=== PATIENT | male | born 1980 | race African-American/Black ===

== ENCOUNTER 2017-11-13 02:05 | Inpatient (IN) ==
[2017-11-13] MEDS ORDERED: 0.9 % Sodium Chloride 1,000 ML IVC ONE ×2 (02:49→05:08)
--- NOTE | 2017-11-13 02:55 | Emergency Department Note ---
Disposition Clinical Impression: Cellulitis of left upper extremity Extremity pain Qualifiers: Extremity pain location: unspecified extremity Qualified Code(s): M79.609 - Pain in unspecified limb Disposition: Still a Patient Condition: Good Referrals: NONE,PCP [Primary Care Provider] - Forms: ED Satisfaction Letter, Work/School Release Time of Disposition: 05:54 General Adult HPI - General Chief complaint: ED General Medical Stated complaint: Muscle Spasms, L Hand/Arm Infection Time Seen by Provider: 11/13/17 02:48 Source: patient Limitations: no limitations Nursing Notes Reviewed: Yes Vital Signs Reviewed: Yes - History of Present Illness HPI Narrative: 37-year-old male complains of muscle spasms, and pain to his left upper extremity. He describes spasm starting earlier tonight, worse with movement. He also mentions redness and swelling on his hand has been worsening. He mentions pain to his left ankle, and knee pain. He describes a thermal burn to his left thumb caused when he was making food. Approximately 45 days ago. 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 He denies any fever, abdominal pain, chest pain, shortness of breath Pain Scale: 9 - Related Data Previous Rx's Medication Instructions Recorded Permethrin Cream Rinse [Nix] 60 ml TP ONCE #1 liquid 05/17/16 Naproxen [Naprosyn] 500 mg PO BID #30 tablet 09/06/17 Allergies Allergy/AdvReac Type Severity Reaction Status Date / Time No Known Allergies Allergy Verified 08/07/17 20:23 All systems ED: reviewed and negative except as stated. Review of Systems: As Per HPI Constitutional: Denies: fever, chills, weakness Eyes: Denies: eye pain ENT ED: Denies: ear pain Cardiovascular: Reports: other (poor circulation). Denies: chest pain, palpitations Respiratory: Denies: cough, dyspnea Gastrointestinal: Denies: abdominal pain, nausea, vomiting Genitourinary: Denies: dysuria Musculoskeletal: Reports: as per HPI. Denies: back pain, neck pain Integumentary: Denies: rash Neurological: Denies: headache Psychiatric: Denies: anxiety Endocrine: Denies: fatigue Allergic/Immunologic: Denies: facial swelling Past Medical History - Past Medical History Medical history: Reports: hyperlipidemia, hypertension Surgical history: Reports: cholecystectomy, orthopedic, other, other Psychiatric history: Reports: anxiety, depression - Social History Smoking Status: Current every day smoker Smokeless Tobacco Status: No Alcohol use: Reports: none Drug use: Reports: marijuana Physical Exam - General Limitations: no limitations General appearance: alert, in no apparent distress, anxious - Head Head exam: atraumatic, normocephalic - Eye Eye exam: Present: normal appearance, EOMI. Absent: conjunctival injection - ENT ENT exam: normal exam, normal oropharynx - Neck Neck exam: Present: normal inspection, full ROM - Chest Chest inspection: Present: normal inspection, symmetric chest wall rise - Respiratory Respiratory exam: Absent: respiratory distress - Cardiovascular Cardiovascular exam: Present: normal rhythm, tachycardia - Abdominal Exam Abdominal exam: Present: soft, Non-Tender - Expanded Upper Extremity Exam Forearm/Wrist exam: Present: tenderness (left ), swelling (left ), erythema ( left ), other (left lymphangitic streaking) Hand exam: Present: tenderness (left ), swelling (left ), other (black skin breakdown over left thumb). Absent: full ROM, erythema - Expanded Lower Extremity Exam Knee exam: Present: full ROM, tenderness (left), swelling (left), erythema (left ). Absent: effusion, knee extension intact Ankle exam: Present: tenderness (left), swelling (left) - Back Exam Back exam: Present: full ROM. Absent: tenderness, CVA tenderness (R), CVA tenderness (L) - Neurological Exam Neurological exam: Present: alert - Psychiatric Psychiatric exam: Present: normal affect, anxious - Skin Skin exam: Present: warm, dry, intact, normal color Course Course Narrative: 37-year-old male with stated history of rhinitis presents with left hand pain and swelling she describes as been worsening over the past few days. He describes a burning occurred approximately month and a half ago. Also complains of left knee pain and left ankle pain. On exam, tachycardic, erythema and edema with limited range of motion over the left hand. Concerning signs for infectious process. Workup initiated. - Reevaluation(s) Reevaluation #1: Patient disrobed, swelling and warmth of her left knee, left ankle as well. We will add uric acid. No relief with analgesics. additional meds ordered. Time: 03:45 Reevaluation #2: Patient is slight elevation of white count. Sedimentation rate CRP slightly elevated. Lactic acid wnl. Responding to fluids, as his heart rate has improved however he still tachycardic. He has received IV vancomycin. Radiographs of the hand, left knee, left ankle show no acute fractures dislocations. Patient was discussed with Dr. Villa who also had face time with patient, and agreed for a CT of left upper extremity, and decision to place. CT has been ordered. Analgesics have been ordered. Due to shift change, care of this patient will be transferred over to day shift provider. Pt discussed with Rosalia castillo PA-C. Please see their further documentation details. Time: 05:53 Vital Signs Temperature 99.9 F H 11/13/17 02:07 Pulse Rate 121 11/13/17 02:07 Respiratory Rate 20 11/13/17 02:07 Blood Pressure 144/90 11/13/17 02:07 O2 Sat by Pulse Oximetry 96 11/13/17 02:07 Temperature 99.9 F H 11/13/17 02:07 Pulse Rate 95 11/13/17 05:27 Respiratory Rate 16 11/13/17 05:27 Blood Pressure 118/77 11/13/17 05:27 O2 Sat by Pulse Oximetry 99 11/13/17 05:27 Oxygen Delivery Oxygen Delivery Room Air Medical Decision Making - Differential Diagnosis cellulitis, infectious tenosynovitis, abscess - Lab Data Lab results reviewed: Yes I reviewed the patient's lab results. Result diagrams: 11/13/17 03:07 11/13/17 03:07 Lab Results 11/13/17 11/13/17 11/13/17 Range/Units 03:00 03:07 03:07 WBC 12.6 H (4.3-11.1) K/mcL RBC 4.65 (4.19-5.50) M/mcL Hgb 12.6 L (12.9-16.9) g/dL Hct 38.3 (37.5-50.1) % MCV 82.4 L (83.0-100.0) fL MCH 27.1 L (28.0-33.3) pg MCHC 32.9 (31.6-35.5) g/dL RDW 14.2 (11.5-14.5) % Plt Count 114 L (140-400) K/mcL MPV 10.9 (9.4-12.4) fL Immature Gran % 0.5 (0-4) % Seg Neutrophils % 87.2 % Lymphocytes % 6.7 % Monocytes % 5.2 % Eosinophils % 0.2 % Basophils % 0.2 % Neutrophils # 11.0 H (1.6-8.9) K/mcL Lymphocytes # 0.8 (0.6-4.6) K/mcL Monocytes # 0.7 (0.0-1.3) K/mcL Eosinophils # 0.0 (0.0-0.6) K/mcL Basophils # 0.0 (0.0-0.2) K/mcL ESR (0-10) mm/hr Sodium 137 (136-145) mEq/L Potassium 3.8 (3.5-5.1) mEq/L Chloride 105 (98-107) mEq/L Carbon Dioxide 29 (23-29) mEq/L BUN 11 (6-20) mg/dL Creatinine 0.84 (0.70-1.30) mg/dL Est GFR ( Amer) > 60 (> 60) Est GFR (Non-Af Amer) > 60 (> 60) BUN/Creatinine Ratio 13 (6-26) Glucose 123 H (70-105) mg/dL Calculated Osmolality 285 (280-300) Lactic Acid (0.5-2.2) mmol/L Uric Acid 4.2 (2.3-7.6) mg/dL Calcium 9.3 (8.6-10.3) mg/dL Magnesium Cancelled Creatine Kinase (30-223) Units/L C-Reactive Protein (Less than 10) mg/L TSH (0.340-5.600) mcIU/mL Urine Color Yellow (Yellow) Urine Clarity Clear (Clear) Urine pH 6.5 (5.0-8.0) pH Units Ur Specific [place] > 1.030 H (1.010-1.025) Urine Protein 100 H (Neg-Trace) mg/dL Urine Glucose (UA) Normal (Normal) mg/dL Urine Ketones Trace H (Negative) mg/dL Urine Blood Negative (Negative) Urine Nitrite Negative (Negative) Urine Bilirubin Small H (Negative) Urine Urobilinogen Normal (Normal) mg/dL Ur Leukocyte Esterase Negative (Negative) Urine Microscopic RBC 5-15 H (0-3) per hpf Urine Microscopic WBC 5-15 H (0-3) per hpf Ur Squamous Epith Cells Many H (None-Few) per lpf Urine Bacteria None Seen (None-Few) per hpf Hyaline Casts None Seen (None-Few) per lpf Ur Culture Indicated? NO (NO) 11/13/17 11/13/17 11/13/17 Range/Units 03:07 03:07 03:07 WBC (4.3-11.1) K/mcL RBC (4.19-5.50) M/mcL Hgb (12.9-16.9) g/dL Hct (37.5-50.1) % MCV (83.0-100.0) fL MCH (28.0-33.3) pg MCHC (31.6-35.5) g/dL RDW (11.5-14.5) % Plt Count (140-400) K/mcL MPV (9.4-12.4) fL Immature Gran % (0-4) % Seg Neutrophils % % Lymphocytes % % Monocytes % % Eosinophils % % Basophils % % Neutrophils # (1.6-8.9) K/mcL Lymphocytes # (0.6-4.6) K/mcL Monocytes # (0.0-1.3) K/mcL Eosinophils # (0.0-0.6) K/mcL Basophils # (0.0-0.2) K/mcL ESR 119 H (0-10) mm/hr Sodium (136-145) mEq/L Potassium (3.5-5.1) mEq/L Chloride (98-107) mEq/L Carbon Dioxide (23-29) mEq/L BUN (6-20) mg/dL Creatinine (0.70-1.30) mg/dL Est GFR ( Amer) (> 60) Est GFR (Non-Af Amer) (> 60) BUN/Creatinine Ratio (6-26) Glucose (70-105) mg/dL Calculated Osmolality (280-300) Lactic Acid 0.9 (0.5-2.2) mmol/L Uric Acid (2.3-7.6) mg/dL Calcium (8.6-10.3) mg/dL Magnesium Creatine Kinase (30-223) Units/L C-Reactive Protein (Less than 10) mg/L TSH 1.024 (0.340-5.600) mcIU/mL Urine Color (Yellow) Urine Clarity (Clear) Urine pH (5.0-8.0) pH Units Ur Specific [place] (1.010-1.025) Urine Protein (Neg-Trace) mg/dL Urine Glucose (UA) (Normal) mg/dL Urine Ketones (Negative) mg/dL Urine Blood (Negative) Urine Nitrite (Negative) Urine Bilirubin (Negative) Urine Urobilinogen (Normal) mg/dL Ur Leukocyte Esterase (Negative) Urine Microscopic RBC (0-3) per hpf Urine Microscopic WBC (0-3) per hpf Ur Squamous Epith Cells (None-Few) per lpf Urine Bacteria (None-Few) per hpf Hyaline Casts (None-Few) per lpf Ur Culture Indicated? (NO) 11/13/17 Range/Units 03:07 WBC (4.3-11.1) K/mcL RBC (4.19-5.50) M/mcL Hgb (12.9-16.9) g/dL Hct (37.5-50.1) % MCV (83.0-100.0) fL MCH (28.0-33.3) pg MCHC (31.6-35.5) g/dL RDW (11.5-14.5) % Plt Count (140-400) K/mcL MPV (9.4-12.4) fL Immature Gran % (0-4) % Seg Neutrophils % % Lymphocytes % % Monocytes % % Eosinophils % % Basophils % % Neutrophils # (1.6-8.9) K/mcL Lymphocytes # (0.6-4.6) K/mcL Monocytes # (0.0-1.3) K/mcL Eosinophils # (0.0-0.6) K/mcL Basophils # (0.0-0.2) K/mcL ESR (0-10) mm/hr Sodium (136-145) mEq/L Potassium (3.5-5.1) mEq/L Chloride (98-107) mEq/L Carbon Dioxide (23-29) mEq/L BUN (6-20) mg/dL Creatinine (0.70-1.30) mg/dL Est GFR ( Amer) (> 60) Est GFR (Non-Af Amer) (> 60) BUN/Creatinine Ratio (6-26) Glucose (70-105) mg/dL Calculated Osmolality (280-300) Lactic Acid (0.5-2.2) mmol/L Uric Acid (2.3-7.6) mg/dL Calcium (8.6-10.3) mg/dL Magnesium Creatine Kinase 297 H (30-223) Units/L C-Reactive Protein 260 H (Less than 10) mg/L TSH (0.340-5.600) mcIU/mL Urine Color (Yellow) Urine Clarity (Clear) Urine pH (5.0-8.0) pH Units Ur Specific [place] (1.010-1.025) Urine Protein (Neg-Trace) mg/dL Urine Glucose (UA) (Normal) mg/dL Urine Ketones (Negative) mg/dL Urine Blood (Negative) Urine Nitrite (Negative) Urine Bilirubin (Negative) Urine Urobilinogen (Normal) mg/dL Ur Leukocyte Esterase (Negative) Urine Microscopic RBC (0-3) per hpf Urine Microscopic WBC (0-3) per hpf Ur Squamous Epith Cells (None-Few) per lpf Urine Bacteria (None-Few) per hpf Hyaline Casts (None-Few) per lpf Ur Culture Indicated? (NO) - Radiology Data Radiology results reviewed: Yes I reviewed the patient's radiology results. Attestation Statement - Attestation Attestation: I, Naresh Villa MD, personally evaluated this patient and discussed their management with the midlevel provicer, [employer]. I reviewed the midlevel provider 's note and agree with the documented findings, medical decision making, and plan of care. 37-year-old male presents to the emergency department with a complaint of increased pain and swelling and redness of the left hand since yesterday. He thinks he has had some fever also. He also complains of muscle spasms in his feet and legs. Patient states that he burned his thumb and index finger about a month and half ago. On examination patient is a well-developed well-nourished male in no acute distress. He is alert and oriented 3. There is no diaphoresis. Breath sounds are clear and equal bilaterally. Heart regular. Abdomen soft with normal bowel sounds. There is marked diffuse swelling of the left hand with erythema and warmth to touch. X-rays of the left hand shows some bony abnormalities of the distal phalanges of the thumb and index finger. Also some soft tissue defects in these areas. They did not mention the edema of the hand. X-ray of ankle shows a probable subcutaneous hematoma. X-ray of the knee shows no acute fracture or abnormality. Labs reviewed. A CT of the left hand with contrast was ordered. Plan is to admit the patient for IV antibiotics after return of the CT.
[2017-11-13] MEDS ORDERED: *HR* LORazepam 2 MG/ML VIAL IVP ONE (02:58)
[2017-11-13] MEDS ORDERED: Ketorolac 15 MG/ML VIAL IVP ONE (02:58)
[2017-11-13 03:18] LABS: Basophils % 0.2 %; Eosinophils % 0.2 %; Hematocrit 38.3 % (37.5-50.1); Hemoglobin 12.6 g/dL (12.9-16.9); Immature Granulocytes % 0.5 % (0-4); Lymphocytes # 0.8 K/mcL (0.6-4.6); Lymphocytes % 6.7 %; Mean Corpuscular HGB Conc 32.9 g/dL (31.6-35.5); Mean Corpuscular Hemoglobin 27.1 pg (28.0-33.3); Mean Corpuscular Volume 82.4 fL (83.0-100.0); Mean Platelet Volume 10.9 fL (9.4-12.4); Monocytes # 0.7 K/mcL (0.0-1.3); Monocytes % 5.2 %; Platelet Count 114 K/mcL (140-400); Red Blood Count 4.65 M/mcL (4.19-5.50); Red Cell Distribution Width 14.2 % (11.5-14.5); Segmented Neutrophils % 87.2 %
[2017-11-13 03:31] LABS: Bilirubin,Urine Small (Negative); Blood,Urine Negative (Negative); Clarity,Urine Clear (Clear); Color,Urine Yellow (Yellow); Glucose,Urine (UA) Normal (Normal); Ketones,Urine Trace mg/dL (Negative); Leukocyte Esterase,Urine Negative (Negative); Nitrite,Urine Negative (Negative); PH,Urine 6.5 pH Units (5.0-8.0); Protein,Urine 100 mg/dL (Neg-Trace); Specific Gravity,Urine > 1.030 (1.010-1.025); Urobilinogen,Urine Normal (Normal)
[2017-11-13 03:32] LABS: BUN/Creatinine Ratio 13 (6-26); Blood Urea Nitrogen 11 mg/dL (6-20); Calcium 9.3 mg/dL (8.6-10.3); Carbon Dioxide 29 mEq/L (23-29); Chloride 105 mEq/L (98-107); Glucose 123 mg/dL (70-105); Osmolality,Calculated 285 (280-300); Potassium 3.8 mEq/L (3.5-5.1); Sodium 137 mEq/L (136-145); eGFR For African Americans > 60 (> 60); eGFR For Non-African Americans > 60 (> 60)
[2017-11-13 03:34] LABS: Bacteria,Urine None Seen per hpf (None-Few); Hyaline Casts,Urine None Seen per lpf (None-Few); Squamous Epithelial Cell,Urine Many per lpf (None-Few)
[2017-11-13] MEDS ORDERED: *HR* HYDROmorphone (PF) 1 MG/ML SYRINGE IVP ONE ×2 (03:41→05:26)
[2017-11-13] MEDS ORDERED: Vancomycin 1,000 MG in D5% in Water 250 ML IVPB ONE (03:43)
[2017-11-13 04:15] LABS: C-Reactive Protein 260 mg/L (Less than 10); Creatine Kinase 297 Units/L (30-223)
[2017-11-13 04:19] LABS: Uric Acid 4.2 mg/dL (2.3-7.6)
--- NOTE | 2017-11-13 06:36 | Emergency Department Note ---
START Narrative - START START: Patient originally seen by Bennie ASHFORD and Dr. Villa. Currently waiting on CT completion for admission. See there note. My only involvement in this case was to discuss CT results with hospitalist for admission. 37-year-old male presents to the emergency department with a complaint of increased pain and swelling and redness of the left hand since yesterday. He thinks he has had some fever also. He also complains of muscle spasms in his feet and legs. Patient states that he burned his thumb and index finger about a month and half ago. X-rays of the left hand shows some bony abnormalities of the distal phalanges of the thumb and index finger. Also some soft tissue defects in these areas. They did not mention the edema of the hand. X-ray of ankle shows a probable subcutaneous hematoma. X-ray of the knee shows no acute fracture or abnormality. Labs reviewed. CT: Diffuse soft tissue swelling with no evidence for abscess. Age-indeterminate bony fragments adjacent to the tip of the thumb. Discussed case with hospitalist. He will accept pt if Ortho is on board with in house consult. Dr Vijaya scott asked to place pt additionally on Zosyn. No other request at this time. Ortho paged to discuss case. Ortho (Dr. Cano) states he is okay with pt staying here and they will see him in the hospital with the hospitalist. Dr. Diaz notiied via text. Admit: Cellulitis of the hand.
[2017-11-13] MEDS ORDERED: Piperacillin/Tazobactam 3.375 GM in Water for inj. (sterile) 20 ML IVP ONE (06:56)
[2017-11-13] MEDS ORDERED: *HR* Morphine 2 MG/ML SYRINGE IVP PRN (08:09)
--- NOTE | 2017-11-13 08:52 | Internal Med History&Physical ---
Date of Encounter: 11/13/17 Time of Encounter: 08:48 Assessment and Plan (1) Cellulitis of hand Current visit: Yes Status: Acute Start the patient on vancomycin Zosyn. CT scan of the hand shows no evidence of tendon affection. Appreciate Orthopedic input. (2) Billings disease Current visit: Yes Status: Acute Patient still smokes. Counselled Internal Medicine - H&P: HPI Chief complaint: hand pain and swelling History of present illness: Mr. 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 About 1 1/2 month ago patient had a burden of his left hand which she attributes to decreased sensation. Last day patient started noticing swelling redness warmth tenderness involving his left hand associated with decreased flexion and extension movement of the fingers. This swelling has progressively extended over the past 24 hours. Patient is right-handed. Patient denies any IV drug use. Patient denies any other areas affected. Past Med Surg Social Fam HX - Past Medical History Medical history: arthritis, asthma, DVT, GERD, GI bleed, hyperlipidemia, hypertension, liver disease, thyroid disease Psychiatric history: anxiety, depression, panic disorder, PTSD - Past Surgical History Surgical History: cholecystectomy, orthopedic, other, other - Social History Smoking Status: Current every day smoker Packs per day: 2 Smokeless Tobacco Status: No Alcohol use: occasionally Drug use: marijuana Internal Medicine - H&P: Meds Permethrin Cream Rinse [Nix] 60 ml TP ONCE #1 liquid 05/17/16 [Rx] Naproxen [Naprosyn] 500 mg PO BID #30 tablet 09/06/17 [Rx] 3 Allergy/AdvReac Type Severity Reaction Status Date / Time No Known Allergies Allergy Verified 08/07/17 20:23 All Systems PM: A 10-system review of systems was performed and is negative for pertinent findings except as documented above in the HPI. Review of systems: 10 point review of systems is negative except for HPI - Constitutional Vitals: Temp Pulse Resp BP Pulse Ox 98.2 F 86 16 139/92 99 11/13/17 07:47 11/13/17 07:47 11/13/17 07:47 11/13/17 07:47 11/13/17 07:47 Exam: Gen.: patient is alert oriented times 3 not in distress. Cardiac: normal S1 S2 no additional sounds are murmurs. Chest: clear to auscultation. Abdomen: soft nontender nondistended. Lower extremity no swelling mucous membranes: moist left hand: swelling, redness warmth in dorsum of hand, decreased flexion and extension motion of fingers. intact radial pulses. Internal Med - H&P Results - Labs CBC & Chem 7: 11/13/17 03:07 11/13/17 03:07
[2017-11-13] MEDS: Piperacillin/Tazobactam 3.375 GM/200 ML BAG IVPB SCH ×2 (09:08→17:23)
[2017-11-13] MEDS: Famotidine 20 MG TABLET PO SCH ×2 (09:08→19:42)
[2017-11-13] MEDS: Nicotine 21 MG PATCH.TD24 TD SCH (09:09)
[2017-11-13] MEDS ORDERED: *HR* HYDROcodone/Acet 5/325 mg TABLET PO PRN (11:54)
--- NOTE | 2017-11-13 12:07 | Orthopedic Consult Note ---
Date of Encounter: 11/13/17 Time of Encounter: 12:05 Assessment and Plan (1) Cellulitis of hand Current Visit: Yes Status: Acute Diagnosis and treatment plan were discussed with the patient. CT shows no localized abscess. Continue antibiotics as per hospitalist. Recommend aggressive ice and elevation of the hand. No current plans for surgery. History of Present Illness HPI: 37-year-old male presented to ED this AM with left hand pain and swelling, worsening over the past few days. Pain diffusely over the hand and thumb, with limited ROM. Per the patient he burned his thumb at this tip about a month and a half ago. Patient also has been tachycardic with F/C/NS. DNVI with burning over the hand. Past Med Surg Social Fam HX - Past Medical History Medical history: arthritis, asthma, DVT, GERD, GI bleed, hyperlipidemia, hypertension, liver disease, thyroid disease Psychiatric history: anxiety, depression, panic disorder, PTSD - Past Surgical History Surgical History: cholecystectomy, orthopedic, other, other - Social History Smoking Status: Current every day smoker Packs per day: 2 Smokeless Tobacco Status: No Alcohol use: occasionally Drug use: marijuana Medications and Allergies Permethrin Cream Rinse [Nix] 60 ml TP ONCE #1 liquid 05/17/16 [Rx] Naproxen [Naprosyn] 500 mg PO BID #30 tablet 09/06/17 [Rx] 3 Allergy/AdvReac Type Severity Reaction Status Date / Time No Known Allergies Allergy Verified 08/07/17 20:23 All Systems Reviewed: A 10-system review of systems was performed and is negative for pertinent findings except as documented above in the HPI. Physical Exam - Constitutional Vitals: Temp Pulse Resp BP Pulse Ox 98.4 F 93 18 146/88 98 11/13/17 11:37 11/13/17 11:37 11/13/17 11:37 11/13/17 11:37 11/13/17 11:37 General appearance IM: A&O X 3 Exam: Consult Exam: Constitutional -Vitals reviewed -The patient is distressed Psychiatric -The patient is fully alert and oriented x 3. Respiratory: -Respiratory effort normal Abdomen: -Soft abdomen -Non tender -Non distended: Left upper extremity: -Diffuse swelling over the hand and thumb with overlying erythema -Eschar over the tip of the thumb -DNVI m/r/u Limited range of motion of all digits Able to flex/extend wrist Right upper extremity: -No deformities. The overlying skin is intact. No obvious signs of acute trauma. -No tenderness to palpation throughout. -No significant pain with passive motion of the shoulder, elbow, wrist, and fingers within the limits of the bed. -Able to make an "OK" sign, cross the index and long fingers, and extend the thumb. -Sensation grossly intact to light touch throughout the median, radial, and ulnar distributions. -Radial pulse is present; Fingers have good capillary refill. Left lower extremity: -No deformities. The overlying skin is intact. No obvious signs of acute trauma. -No tenderness to palpation throughout. -No pain with passive motion of the hip, knee, ankle, and toes within the limits of the bed. -No pain with axial loading of the thigh. -Able to dorsiflex and plantarflex the ankle and toes. -Sensation is grossly intact to light touch throughout the sural, saphenous, superficial peroneal, and deep peroneal distributions. -Toes have good capillary refill. Right lower extremity: -No deformities. The overlying skin is intact. No obvious signs of acute trauma. -No tenderness to palpation throughout. -No pain with passive motion of the hip, knee, ankle, and toes within the limits of the bed. -No pain with axial loading of the thigh. -Able to dorsiflex and plantarflex the ankle and toes. -Sensation is grossly intact to light touch throughout the sural, saphenous, superficial peroneal, and deep peroneal distributions. -Toes have good capillary refill. Results - Labs Result Diagrams: 11/13/17 03:07 11/13/17 03:07 Labs: Abnormal lab results WBC 12.6 K/mcL (4.3-11.1) H 11/13/17 03:07 Hgb 12.6 g/dL (12.9-16.9) L 11/13/17 03:07 MCV 82.4 fL (83.0-100.0) L 11/13/17 03:07 MCH 27.1 pg (28.0-33.3) L 11/13/17 03:07 Plt Count 114 K/mcL (140-400) L 11/13/17 03:07 Neutrophils # 11.0 K/mcL (1.6-8.9) H 11/13/17 03:07 ESR 119 mm/hr (0-10) H 11/13/17 03:07 Glucose 123 mg/dL (70-105) H 11/13/17 03:07 Creatine Kinase 297 Units/L (30-223) H 11/13/17 03:07 C-Reactive Protein 260 mg/L (Less than 10) H 11/13/17 03:07 Ur Specific [place] > 1.030 (1.010-1.025) H 11/13/17 03:00 Urine Protein 100 mg/dL (Neg-Trace) H 11/13/17 03:00 Urine Ketones Trace mg/dL (Negative) H 11/13/17 03:00 Urine Bilirubin Small (Negative) H 11/13/17 03:00 Urine Microscopic RBC 5-15 per hpf (0-3) H 11/13/17 03:00 Urine Microscopic WBC 5-15 per hpf (0-3) H 11/13/17 03:00 Ur Squamous Epith Cells Many per lpf (None-Few) H 11/13/17 03:00 All other labs normal. - Diagnostic results Wrist/Hand x-ray: report reviewed, image reviewed Wrist/Hand CT: report reviewed, image reviewed (Diffuse soft tissue swelling. No definitive abscess) Consult Discharge Plan - Plan Referrals: NONE,PCP [Primary Care Provider] -
[2017-11-13] MEDS: *HR* HYDROmorphone (PF) 1 MG/ML SYRINGE IVP PRN ×2 (12:48→19:42)
[2017-11-13] MEDS: Vancomycin 1,250 MG in D5% in Water 250 ML IVPB SCH (17:00)
[2017-11-13] MEDS: *HR* Heparin 5,000 UNIT/ML VIAL SQ SCH (17:01)
[2017-11-13] MEDS ORDERED: Acetaminophen 325 MG TABLET PO PRN (19:54)
[2017-11-14] MEDS: *HR* HYDROmorphone (PF) 1 MG/ML SYRINGE IVP PRN ×7 (00:31→18:11)
[2017-11-14] MEDS: *HR* Heparin 5,000 UNIT/ML VIAL SQ SCH ×3 (00:31→14:35)
[2017-11-14] MEDS: Piperacillin/Tazobactam 3.375 GM/200 ML BAG IVPB SCH ×2 (00:36→09:59)
[2017-11-14] MEDS: Vancomycin 1,250 MG in D5% in Water 250 ML IVPB SCH ×2 (04:14→14:35)
--- NOTE | 2017-11-14 05:08 | Event Note ---
Date of Encounter: 11/14/17 Time of Encounter: 04:00 Contacted by RN because of worsening pain and erythema of patient's left hand. Promptly evaluated the patient - he states his pain is more severe. The left hand is more edematous and erythematous than when I examined it earlier in the shift (around 1999 on 11/13). The patient is able to move fingers 2-5 but has difficulty moving his thumb. Normal capillary refill on all fingers, patient with normal sensation of fingers. Radial pulse 2+. Able to flex and extend wrist. I contacted othopedics backshoe person, Dr. Cano, who stated that there is no ortho hand service available this weekend. Given the clinical worsening and decreased range of motion I am concerned that the patient could progress to compartment syndrome of his hand - I will transfer him to [facility]. Patient agreeable with this plan. [facility] transfer center called, awaiting return call to set up transfer.
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
[2017-11-14] MEDS: Famotidine 20 MG TABLET PO SCH (09:08)
[2017-11-14] MEDS: Nicotine 21 MG PATCH.TD24 TD SCH (09:11)
[2017-11-14 10:54] LABS: Hemoglobin 12.2 g/dL (12.9-16.9); Mean Corpuscular HGB Conc 32.1 g/dL (31.6-35.5); Mean Corpuscular Hemoglobin 26.8 pg (28.0-33.3); Mean Corpuscular Volume 83.5 fL (83.0-100.0); Mean Platelet Volume 11.5 fL (9.4-12.4); Platelet Count 150 K/mcL (140-400); Red Blood Count 4.55 M/mcL (4.19-5.50); Red Cell Distribution Width 14.3 % (11.5-14.5)
[2017-11-14 12:33] LABS: Acinetobacter baumannii by PCR Not Detected (Not Detect); Candida albicans by PCR Not Detected (Not Detect); Candida glabrata by PCR Not Detected (Not Detect); Candida krusei by PCR Not Detected (Not Detect); Candida parapsilosis by PCR Not Detected (Not Detect); Candida tropicalis by PCR Not Detected (Not Detect); Enterococcus by PCR Not Detected (Not Detect); Escherichia coli by PCR Not Detected (Not Detect); Klebsiella oxytoca by PCR Not Detected (Not Detect); Klebsiella pneumoniae by PCR Not Detected (Not Detect); Pseudomonas aeruginosa by PCR Not Detected (Not Detect); Serratia marcescens by PCR Not Detected (Not Detect); Streptococcus agalactiae(B)PCR Not Detected (Not Detect); Streptococcus by PCR Not Detected (Not Detect); Streptococcus pneumoniae PCR Not Detected (Not Detect); Streptococcus pyogenes (A) PCR Not Detected (Not Detect); mecA Methicillin-Resist Gene Not Detected (Not Detect)
[2017-11-14 12:34] LABS: Staphylococcus aureus by PCR ***DETECTED*** (Not Detect)
[2017-11-14 14:28] VITALS: BP 114/69
[2017-11-14] MEDS ORDERED: 0.9 % Sodium Chloride 1,000 ML IVC ONE (15:57)
[2017-11-14] MEDS ORDERED: Aminoglycoside Consult 1 EACH MC ONE (18:19)
== END 2017-11-14 18:20 | disposition short-term general hospital (02) | DRG 720 ==
LOC: EMEROO 02:05 → 3NENU 02:05
PROVIDERS: ADMIT Pediatrics; ATTEND Hospitalist

== ENCOUNTER 2018-02-08 04:50 | Observation (INO) ==
[2018-02-08] MEDS ORDERED: Ziprasidone injection 20 MG/ML VIAL IM ONE ×3 (04:53→09:00)
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
--- NOTE | 2018-02-08 05:20 | Emergency Department Note ---
Disposition Clinical Impression: Acute psychosis, Rhabdomyolysis Disposition: Admitted As Inpatient Condition: Good Referrals: Floyd Pineda DO [Primary Care Provider] - Forms: ED Satisfaction Letter Time of Disposition: 06:52 Psych HPI - General Chief Complaint: ED Psychiatric Symptoms Stated Complaint: anxiety Time Seen by Provider: 02/08/18 04:57 Source: patient, EMS Mode of arrival: EMS Nursing Notes Reviewed: Yes Vital Signs Reviewed: Yes - History of Present Illness HPI Narrative: Patient presenting to the ED via EMS. The chief complaint of anxiety. Patient does have a extensive psychiatric history. Reports feeling more anxious than usual. On exam, patient is nonverbal, thrashing side to side shaking his arms voluntarily. He then turned onto his stomach and got on his knees and was banging his head into the cot. Unable to examine - Related Data Home Medications Medication Instructions Recorded Confirmed Aspirin [Lo-Dose Aspirin EC] 81 mg PO DAILY 11/13/17 11/13/17 clonazePAM [Klonopin] 0.5 mg PO BID PRN 11/13/17 11/13/17 Allergies Allergy/AdvReac Type Severity Reaction Status Date / Time No Known Allergies Allergy Verified 11/14/17 05:09 Limitations: ROS unobtainable due to patients medical condition Past Medical History - Past Medical History Source: old records reviewed Medical history: Reports: arthritis, asthma, DVT, GERD, GI bleed, hyperlipidemia , hypertension, liver disease, thyroid disease Surgical history: Reports: cholecystectomy, orthopedic, other, other Psychiatric history: Reports: anxiety, depression, panic disorder, PTSD - Social History Smoking Status: Current every day smoker Smokeless Tobacco Status: No Alcohol use: Reports: none Drug use: Reports: marijuana Physical Exam - General Limitations: no limitations General appearance: alert, other (Patient pending his head on the cot rhythmically, and was a voluntary movement, otherwise unable to examine) Course Course Narrative: Patient presenting with anxiety and psychotic behavior. Will medicate with Geodon and obtain an EKG EKG shows a sinus tachycardia at a rate of 144. Concerned about coingestions. We will place a line and get labs. - Reevaluation(s) Reevaluation #1: Patient's CK is over 2000 and an elevated bilirubins. Consistent with rhabdo and considering the amount of effort. The patient was exerting into slamming his head in the bed would be consistent. We will admit him the hospitalist service for fluid rehydration. Vital Signs Temperature 98.2 F 02/08/18 04:52 Pulse Rate 94 02/08/18 04:52 Respiratory Rate 20 02/08/18 04:52 Blood Pressure 0/0 02/08/18 04:52 O2 Sat by Pulse Oximetry 0 02/08/18 04:52 Temperature 98.2 F 02/08/18 04:52 Pulse Rate 107 02/08/18 06:26 Respiratory Rate 14 02/08/18 06:26 Blood Pressure 85/52 02/08/18 06:26 O2 Sat by Pulse Oximetry 95 02/08/18 06:26 Oxygen Delivery Oxygen Delivery Room Air Psych - Lab Data Result diagrams: 02/08/18 05:24 02/08/18 05:24 Lab Results 02/08/18 02/08/18 Range/Units 05:24 05:24 WBC 6.0 (4.3-11.1) K/mcL RBC 5.71 H (4.19-5.50) M/mcL Hgb 15.5 (12.9-16.9) g/dL Hct 47.8 (37.5-50.1) % MCV 83.7 (83.0-100.0) fL MCH 27.1 L (28.0-33.3) pg MCHC 32.4 (31.6-35.5) g/dL RDW 14.5 (11.5-14.5) % Plt Count 223 (140-400) K/mcL MPV 10.9 (9.4-12.4) fL Immature Gran % 0.2 (0-4) % Seg Neutrophils % 61.4 % Lymphocytes % 28.1 % Monocytes % 9.0 % Eosinophils % 0.5 % Basophils % 0.8 % Neutrophils # 3.7 (1.6-8.9) K/mcL Lymphocytes # 1.7 (0.6-4.6) K/mcL Monocytes # 0.5 (0.0-1.3) K/mcL Eosinophils # 0.0 (0.0-0.6) K/mcL Basophils # 0.1 (0.0-0.2) K/mcL Sodium 140 (136-145) mEq/L Potassium 4.1 (3.5-5.1) mEq/L Chloride 101 (98-107) mEq/L Carbon Dioxide 24 (23-29) mEq/L BUN 40 H (6-20) mg/dL Creatinine 1.29 (0.70-1.30) mg/dL Est GFR ( Amer) > 60 (> 60) Est GFR (Non-Af Amer) > 60 (> 60) BUN/Creatinine Ratio 31 H (6-26) Glucose 101 (70-105) mg/dL Calculated Osmolality 300 (280-300) Calcium 9.8 (8.6-10.3) mg/dL Total Bilirubin 2.9 H (0.3-1.0) mg/dL Direct Bilirubin 0.5 H (0.0-0.2) mg/dL Indirect Bilirubin 2.4 H (0.0-1.2) mg/dL AST 70 H (13-39) Units/L ALT 26 (7-52) Units/L Alkaline Phosphatase 77 (34-104) Units/L Creatine Kinase 2350 H (30-223) Units/L Serum Total Protein 8.0 (6.4-8.9) g/dL Albumin 4.7 (3.5-5.7) g/dL Globulin 3.3 (2.4-3.5) g/dL Albumin/Globulin Ratio 1.4 (1.1-2.2) TSH 1.380 (0.340-5.600) mcIU/mL Salicylates < 2.5 L (15.0-30.0) mg/dL Acetaminophen < 10 L (10-20) mcg/mL Ethyl Alcohol < 10 (Less than 10) mg/dL - EKG Data EKG attestation: Yes I reviewed and interpreted this EKG. EKG results narrative: Sinus tach, rate 144, NH interval 118, QRS 88, QTC 347, indeterminate axis, no acute ischemic disease Psychiatric Medical Clearance - Medical Clearance Checklist Medical History: Cellulitis of left upper extremity (Acute) Extremity pain (Acute) Cellulitis of hand (Acute) Billings disease (Chronic) Bacteremia (Acute) Sepsis (Acute) Nonhealing surgical wound (Acute) Acute psychosis (Acute) Acute anxiety (Inactive) Agitation (Inactive) Anxiety (Inactive) Anxiety (Inactive) Anxiety attack (Inactive) Cephalgia (Inactive) Hypertension (Inactive) Penile pain, chronic (Inactive) Priapism (Inactive) Priapism, unspecified (Inactive) Pseudoseizures (Inactive) Pseudoseizures (Inactive) Scabies (Inactive) Substance abuse (Inactive) Substance abuse (Inactive) No Social History Section defined Current Vitals: Last Vital Signs Temp 98.2 F 02/08/18 04:52 Pulse 107 02/08/18 06:26 Resp 14 02/08/18 06:26 BP 85/52 02/08/18 06:26 Pulse Ox 95 02/08/18 06:26 Psychiatric Lab Panel: Drug Levels and Toxicity 02/08/18 05:24 Acetaminophen < 10 L Ethyl Alcohol < 10 Abnormal Labs: Abnormal lab results RBC 5.71 M/mcL (4.19-5.50) H 02/08/18 05:24 MCH 27.1 pg (28.0-33.3) L 02/08/18 05:24 BUN 40 mg/dL (6-20) H 02/08/18 05:24 BUN/Creatinine Ratio 31 (6-26) H 02/08/18 05:24 Total Bilirubin 2.9 mg/dL (0.3-1.0) H 02/08/18 05:24 Direct Bilirubin 0.5 mg/dL (0.0-0.2) H 02/08/18 05:24 Indirect Bilirubin 2.4 mg/dL (0.0-1.2) H 02/08/18 05:24 AST 70 Units/L (13-39) H 02/08/18 05:24 Creatine Kinase 2350 Units/L (30-223) H 02/08/18 05:24 Salicylates < 2.5 mg/dL (15.0-30.0) L 02/08/18 05:24 Acetaminophen < 10 mcg/mL (10-20) L 02/08/18 05:24 Statement of Medical Clearance: I have evaluated the patient, reviewed diagnostic information, and certify that the patient's medical condition is sufficiently stable that transfer to the psychiatric unit does not pose a significant risk of deterioration.
[2018-02-08] MEDS ORDERED: 0.9 % Sodium Chloride 1,000 ML IVC ONE ×2 (05:21→06:30)
[2018-02-08 05:36] LABS: Basophils # 0.1 K/mcL (0.0-0.2); Basophils % 0.8 %; Eosinophils % 0.5 %; Hematocrit 47.8 % (37.5-50.1); Hemoglobin 15.5 g/dL (12.9-16.9); Immature Granulocytes % 0.2 % (0-4); Lymphocytes # 1.7 K/mcL (0.6-4.6); Lymphocytes % 28.1 %; Mean Corpuscular HGB Conc 32.4 g/dL (31.6-35.5); Mean Corpuscular Hemoglobin 27.1 pg (28.0-33.3); Mean Corpuscular Volume 83.7 fL (83.0-100.0); Mean Platelet Volume 10.9 fL (9.4-12.4); Monocytes # 0.5 K/mcL (0.0-1.3); Neutrophils # 3.7 K/mcL (1.6-8.9); Platelet Count 223 K/mcL (140-400); Red Blood Count 5.71 M/mcL (4.19-5.50); Red Cell Distribution Width 14.5 % (11.5-14.5); Segmented Neutrophils % 61.4 %
[2018-02-08 06:00] LABS: Acetaminophen < 10 mcg/mL (10-20); Alanine Aminotransferase 26 Units/L (7-52); Albumin 4.7 g/dL (3.5-5.7); Albumin/Globulin Ratio 1.4 (1.1-2.2); Alkaline Phosphatase 77 Units/L (34-104); Aspartate Amino Transferase 70 Units/L (13-39); BUN/Creatinine Ratio 31 (6-26); Bilirubin,Direct 0.5 mg/dL (0.0-0.2); Bilirubin,Indirect 2.4 mg/dL (0.0-1.2); Bilirubin,Total 2.9 mg/dL (0.3-1.0); Blood Urea Nitrogen 40 mg/dL (6-20); Calcium 9.8 mg/dL (8.6-10.3); Carbon Dioxide 24 mEq/L (23-29); Chloride 101 mEq/L (98-107); Ethanol < 10 mg/dL (Less than 10); Globulin 3.3 g/dL (2.4-3.5); Glucose 101 mg/dL (70-105); Osmolality,Calculated 300 (280-300); Potassium 4.1 mEq/L (3.5-5.1); Salicylate < 2.5 mg/dL (15.0-30.0); Sodium 140 mEq/L (136-145); eGFR For African Americans > 60 (> 60); eGFR For Non-African Americans > 60 (> 60)
[2018-02-08 06:22] LABS: Creatine Kinase 2350 Units/L (30-223)
--- NOTE | 2018-02-08 09:31 | Internal Med History&Physical ---
Date of Encounter: 02/08/18 Time of Encounter: 10:06 Internal Medicine - H&P: HPI Admitted From: Emergency Dept Plans for Post Hospital Care: Transfer Psych Facility (Acute psychosis with history of psychology illness.) History of present illness: Mr. Naranjo is a 37 year old -Thai male with history of underlying psychiatric illness questionable PTSD, liver disease presented to emergency room with complaint of worsening of ongoing anxiety since Wednesday. Patient is not able to sleep adequately with decrease oral diet and fluid intake. Patient feels like dehydrated therefore decided to come to emergency room. No family member at bedside and patient is poor historian. Patient had acute psychosis event while in the ER therefore seen by psychiatrist and Geodon was given that helped him slightly. Initial vitals were stable except low blood pressure 80s/ 40s with tachycardia. Incidental left finding with raised CPK and slight bilirubin but normal LFTs. In the ER more than 3 L of fluid was given to stabilize his blood pressure and heart rate. ER physician called on-call hospitalists to get admitted with initial medical diagnosis of rhabdomyolysis. Patient needs medical clearance before getting inpatient psych facility involved. During my interview patient still anxious but better controlled and denied any suicidal and homicidal thoughts or plan. Patient denies any fever, chills, headache, dizziness, vomiting, diarrhea, abdominal pain, urinary problem. Patient complained of nausea and also non- specific chest pain that have been whenever patient has anxiety attack and chest pain not related with any activity and denied associated shortness of breath, dizziness, lightheadedness with no associated aggravating or relieving factor. Chest pain gets better when anxiety is better . Past Med Surg Social Fam HX - Past Medical History Medical history: arthritis, asthma, DVT, GERD, GI bleed, hyperlipidemia, hypertension, liver disease, thyroid disease Psychiatric history: anxiety, depression, panic disorder, PTSD - Past Surgical History Surgical History: cholecystectomy, orthopedic, other, other - Social History Smoking Status: Current every day smoker Smokeless Tobacco Status: No Alcohol use: none Drug use: marijuana - Family History Mother History Unknown: Yes - Additional Family History Additional family history: Reviewed. Noncontributory at this time Internal Medicine - H&P: Meds clonazePAM [Klonopin] 0.5 mg PO BID PRN 11/13/17 [History] Escitalopram [Lexapro] 10 mg PO DAILY 02/08/18 [History] Propranolol [Inderal] 10 mg PO TID 02/08/18 [History] 3 Allergy/AdvReac Type Severity Reaction Status Date / Time No Known Allergies Allergy Verified 11/14/17 05:09 All Systems PM: as documented above in the HPI. - Constitutional Vitals: Temp Pulse Resp BP Pulse Ox 98.2 F 83 13 93/40 99 02/08/18 04:52 02/08/18 07:02 02/08/18 07:02 02/08/18 07:02 02/08/18 07:02 Exam: General appearance: Anxious and restless while interviewing but in between goes to sleep and easily arousable. Poor historian A&O X 3 Head exam: Atraumatic Eye exam: EOMI, PERRLA ENT exam: Dry oral mucosa Neck nontender, supple Respiratory exam: Clear to auscultation bilaterally Cardiovascular exam: Regular rate and rhythm, no systolic murmur Abdominal exam: Soft, nontender, nondistended, positive bowel sounds. A small old scar on the right upper quadrant most likely due to cholecystectomy Extremities exam: No calf tenderness, no pedal edema . Skin-no rash, warm, dry, intact Neurological exam: Alert, awake, oriented 3, CN II-XII intact, no focal deficits. Motor appear 5 x 5 in all 4 extremities. No facial droop. Pressured speech. Not much cooperative. Internal Med - H&P Results - Labs CBC & Chem 7: 02/08/18 05:24 02/08/18 05:24 Labs: Short CBC 02/08/18 Range/Units 05:24 WBC 6.0 (4.3-11.1) K/mcL Hgb 15.5 (12.9-16.9) g/dL Hct 47.8 (37.5-50.1) % Plt Count 223 (140-400) K/mcL Neutrophils # 3.7 (1.6-8.9) K/mcL BMP 02/08/18 05:24 Sodium 140 Potassium 4.1 Chloride 101 Carbon Dioxide 24 BUN 40 H Creatinine 1.29 Glucose 101 Calcium 9.8 Liver Function 02/08/18 Range/Units 05:24 Total Bilirubin 2.9 H (0.3-1.0) mg/dL Direct Bilirubin 0.5 H (0.0-0.2) mg/dL AST 70 H (13-39) Units/L ALT 26 (7-52) Units/L Alkaline Phosphatase 77 (34-104) Units/L Albumin 4.7 (3.5-5.7) g/dL - Impressions ITS Impressions Chest X-Ray 02/08/18 05:23 IMPRESSION: Negative portable chest. D/ / Missael Edwards MD / Missael Edwards MD Interpreting Provider: Missael Edwards MD - Assessment and plan (1) Rhabdomyolysis Current Visit: Yes Status: Acute Assessment and plan: Increased CPK with slight dehydration. 3 L IV fluid given in the ER. Will continue IV fluid normal saline 125 mL per hour with strict I and O's repeat CPK every 8 hours. No strenuous exercise Qualifiers: Rhabdomyolysis type: non-traumatic Qualified Code(s): M62.82 - Rhabdomyolysis (2) Acute psychosis Current Visit: Yes Status: Acute Assessment and plan: History of underlying psychiatric illness. Get intermittent anxiety attack. No suicidal or homicidal. Got evaluated by psychiatrists in the ER but needs the medical clearance for inpatient psych facility transfer. Continue home medication. Will also consult psychiatrist for acute management of anxiety. Needs close monitoring. (3) Elevated bilirubin Current Visit: Yes Status: Acute Assessment and plan: History of underlying liver disease. Slight elevated indirect bilirubin. Will monitor bilirubin level. Denies alcohol abuse with normal alcohol level in the ER. Continue conservative management. Will consider PT INR if any concern of active bleeding or worsening of bilirubin level. Patient denies any active GI bleed at this time. (4) Prerenal azotemia Current Visit: Yes Status: Acute Assessment and plan: Mild to moderate dehydration. Raised BUN but normal creatinine level. IV fluid continuation. Monitor BMP. (5) Smoker Current Visit: Yes Status: Acute Assessment and plan: Smoking cessation education. Nicotine patch as needed (6) DVT prophylaxis Current Visit: Yes Status: Acute Assessment and plan: Patient is ambulating - Time Spent With Patient Total time spent is greater than 50% in coordination of care (as documented) at patient's floor/unit and/or counseling patient:
[2018-02-08] MEDS ORDERED: Nicotine 14 MG PATCH.TD24 TD PRN ×2 (11:29→12:48)
[2018-02-08] MEDS ORDERED: Naloxone 0.4 MG/ML INJ IVP PRN (12:48)
[2018-02-08] MEDS: clonazePAM 0.5 MG TABLET PO PRN (13:29)
[2018-02-08] MEDS: 0.9 % Sodium Chloride 1,000 ML IVC SCH (13:29)
[2018-02-08 13:30] LABS: INR 1.3
[2018-02-08 13:39] LABS: Troponin I 0.03 ng/mL (< 0.04)
[2018-02-08] MEDS ORDERED: *HR* Morphine 2 MG/ML SYRINGE IVP ONE (13:50)
[2018-02-08 14:54] LABS: Amphetamine Screen,Urine Negative ng/mL (Cutoff=1000); Barbiturate Screen,Urine Negative ng/mL (Cutoff=200); Benzodiazepines Screen,Urine Negative ng/mL (Cutoff=200); Cannabinoid Screen,Urine Positive ng/mL (Cutoff = 50); Cocaine Screen,Urine Negative ng/mL (Cutoff= 300); Opiate Screen,Urine Negative ng/mL (Cutoff=300); Phencyclidine Screen,Urine Negative ng/mL (Cutoff=25)
--- NOTE | 2018-02-08 16:11 | Consult Note ---
Date of Encounter: 02/08/18 Time of Encounter: 15:00 Assessment & Recommendation (1) Panic attacks Current visit: Yes Status: Acute (2) Acute psychosis Current visit: Yes Status: Acute (3) Rhabdomyolysis Current visit: Yes Status: Acute Qualifiers: Rhabdomyolysis type: non-traumatic Qualified Code(s): M62.82 - Rhabdomyolysis History of Present Illness Patient: new to practice Requesting Physician: Mauricio Loomis Reason for consult: unusual behavior History of present illness: Mr. Naranjo is a 37 year old male Was interviewed in the chart was reviewed. The patient's behavior has been described to me. The patient kept his head covered and did not want to talk to me [id number]. I saw some writhing movements, but did not try to examine him directly with confrontation. The patient's history is limited and he is only a fair historian. He reports that he has been on psychiatric medicines for panic disorder and that he was prescribed Klonopin propranolol and Lexapro. He reports that these were not helpful and that he has been getting sick.. The patient had hiccuping that could be seen and he reported ongoing chest pain. He says that he sees someone in psychiatry every week. The patient admitted to using marijuana and smoking but did not hallucinations or delusion hallucinations or delusions. His presentation is not consistent with catatonia or other psychiatric problems. I reviewed the state pharmacy report is consistent with the prescription of clonazepam and previous treatment with lorazepam. The patient did not report he did not report hallucinations or delusions. The patient admitted to using marijuana he denied abusing other medicines or drugs abuse. He requested a shot of Benadryl. I reviewed the records in chart. It is difficult to say what his present patient seen declined admission to 1A and he still has rhabdomyolysis with elevated CK. I do not think this is a presentation of neuroleptic malignant syndrome he does have elevated blood pressure however. CC: Mauricio Loomis Past Med Surg Social Fam HX - Past Medical History Source: patient Medical history: arthritis, asthma, DVT, GERD, GI bleed, hyperlipidemia, hypertension, liver disease, thyroid disease - Past Psychiatric History Psychiatric history: Reports: panic disorder Family psychiatric history: Unknown Family History of Suicide: Unknown - Past Surgical History Surgical History: cholecystectomy, orthopedic, other, other - Social History Smoking Status: Current every day smoker Smokeless Tobacco Status: No Alcohol use: none Drug use: marijuana Occupational status: other Current living situation: Home - Independent Activity Level: Independent ambulation Recent Out of Country Travel Within the Last 8 Weeks: No Exposure or Possible Exposure to Illness During Travel: No - Family History Mother History Unknown: Yes Medications & Allergies clonazePAM [Klonopin] 0.5 mg PO BID PRN 11/13/17 [History] Escitalopram [Lexapro] 10 mg PO DAILY 02/08/18 [History] Propranolol [Inderal] 10 mg PO TID 02/08/18 [History] 3 Allergy/AdvReac Type Severity Reaction Status Date / Time No Known Allergies Allergy Verified 11/14/17 05:09 Review of Systems Psychiatric: Reports: change in appetite, irritability, panic attacks Psychiatry Exam - Constitutional Vitals: Temp Pulse Resp BP Pulse Ox 98.0 F 85 22 187/101 93 02/08/18 12:36 02/08/18 12:36 02/08/18 12:36 02/08/18 15:31 02/08/18 12:36 General appearance: bizarre - Musculoskeletal Station: shaky, bizarre mannerisms - Psychiatric Patient Orientation: Yes Person, Yes Time, Yes Place, Yes Circumstance Level of alertness: Alert Behavior: suspicious, withdrawn Psychomotor activity: Repetitive movements Eye Contact: No Eye Contact Mood Description: Anxious Affect description: congruent with mood Speech Volume: Normal Speech pattern: normal rate, limited Language & Vocabulary: consistent with education Thought Process: Intact Thought Content: Yes Intact Attention Span Ability: Unable to Sustain Attention Patient Reliability: Questionable Historian Intelligence Estimate: Average Judgment: Limited Insight: Minimal Results - Drug Levels and Toxicology Drug Levels and Toxicology: Drug Levels and Toxicity 02/08/18 14:05 Urine Opiates Screen Negative Ur Barbiturates Screen Negative Ur Phencyclidine Scrn Negative Ur Amphetamines Screen Negative U Benzodiazepines Scrn Negative Urine Cocaine Screen Negative U Marijuana (THC) Screen Positive H - Labs Labs: Laboratory Last Values WBC 6.0 K/mcL (4.3-11.1) 02/08/18 05:24 RBC 5.71 M/mcL (4.19-5.50) H 02/08/18 05:24 Hgb 15.5 g/dL (12.9-16.9) 02/08/18 05:24 Hct 47.8 % (37.5-50.1) 02/08/18 05:24 MCV 83.7 fL (83.0-100.0) 02/08/18 05:24 MCH 27.1 pg (28.0-33.3) L 02/08/18 05:24 MCHC 32.4 g/dL (31.6-35.5) 02/08/18 05:24 RDW 14.5 % (11.5-14.5) 02/08/18 05:24 Plt Count 223 K/mcL (140-400) 02/08/18 05:24 MPV 10.9 fL (9.4-12.4) 02/08/18 05:24 Immature Gran % 0.2 % (0-4) 02/08/18 05:24 Seg Neutrophils % 61.4 % 02/08/18 05:24 Lymphocytes % 28.1 % 02/08/18 05:24 Monocytes % 9.0 % 02/08/18 05:24 Eosinophils % 0.5 % 02/08/18 05:24 Basophils % 0.8 % 02/08/18 05:24 Neutrophils # 3.7 K/mcL (1.6-8.9) 02/08/18 05:24 Lymphocytes # 1.7 K/mcL (0.6-4.6) 02/08/18 05:24 Monocytes # 0.5 K/mcL (0.0-1.3) 02/08/18 05:24 Eosinophils # 0.0 K/mcL (0.0-0.6) 02/08/18 05:24 Basophils # 0.1 K/mcL (0.0-0.2) 02/08/18 05:24 PT 14.0 Seconds (9.4-12.1) H 02/08/18 12:55 INR 1.3 02/08/18 12:55 Sodium 140 mEq/L (136-145) 02/08/18 05:24 Potassium 4.1 mEq/L (3.5-5.1) 02/08/18 05:24 Chloride 101 mEq/L (98-107) 02/08/18 05:24 Carbon Dioxide 24 mEq/L (23-29) 02/08/18 05:24 BUN 40 mg/dL (6-20) H 02/08/18 05:24 Creatinine 1.29 mg/dL (0.70-1.30) 02/08/18 05:24 Est GFR ( Amer) > 60 (> 60) 02/08/18 05:24 Est GFR (Non-Af Amer) > 60 (> 60) 02/08/18 05:24 BUN/Creatinine Ratio 31 (6-26) H 02/08/18 05:24 Glucose 101 mg/dL (70-105) 02/08/18 05:24 POC Glucose 90 mg/dL (70-99) 02/08/18 13:23 Calculated Osmolality 300 (280-300) 02/08/18 05:24 Calcium 9.8 mg/dL (8.6-10.3) 02/08/18 05:24 Total Bilirubin 2.9 mg/dL (0.3-1.0) H 02/08/18 05:24 Direct Bilirubin 0.5 mg/dL (0.0-0.2) H 02/08/18 05:24 Indirect Bilirubin 2.4 mg/dL (0.0-1.2) H 02/08/18 05:24 AST 70 Units/L (13-39) H 02/08/18 05:24 ALT 26 Units/L (7-52) 02/08/18 05:24 Alkaline Phosphatase 77 Units/L (34-104) 02/08/18 05:24 Creatine Kinase 2374 Units/L (30-223) H 02/08/18 12:55 Troponin I 0.03 ng/mL (< 0.04) 02/08/18 12:55 Serum Total Protein 8.0 g/dL (6.4-8.9) 02/08/18 05:24 Albumin 4.7 g/dL (3.5-5.7) 02/08/18 05:24 Globulin 3.3 g/dL (2.4-3.5) 02/08/18 05:24 Albumin/Globulin Ratio 1.4 (1.1-2.2) 02/08/18 05:24 TSH 1.380 mcIU/mL (0.340-5.600) 02/08/18 05:24 Salicylates < 2.5 mg/dL (15.0-30.0) L 02/08/18 05:24 Urine Opiates Screen Negative ng/mL (Wevmus=268) 02/08/18 14:05 Acetaminophen < 10 mcg/mL (10-20) L 02/08/18 05:24 Ur Barbiturates Screen Negative ng/mL (Qyetmv=818) 02/08/18 14:05 Ur Phencyclidine Scrn Negative ng/mL (Cutoff=25) 02/08/18 14:05 Ur Amphetamines Screen Negative ng/mL (Zbhmgd=1542) 02/08/18 14:05 U Benzodiazepines Scrn Negative ng/mL (Ychxnn=092) 02/08/18 14:05 Urine Cocaine Screen Negative ng/mL (Cutoff= 300) 02/08/18 14:05 U Marijuana (THC) Screen Positive ng/mL (Cutoff = 50) H 02/08/18 14:05 Ethyl Alcohol < 10 mg/dL (Less than 10) 02/08/18 05:24 Consult Discharge Plan - Plan Referrals: Floyd Pineda, [Primary Care Provider] -
[2018-02-08] MEDS ORDERED: diazePAM 2 MG TABLET PO SCH (18:39)
[2018-02-08] MEDS: *HR* HYDROcodone/Acet 5/325 mg TABLET PO PRN (19:00)
[2018-02-08] MEDS ORDERED: diazePAM 10 MG TABLET PO SCH (20:30)
[2018-02-08] MEDS: diazePAM 10 MG TABLET PO PRN (23:25)
[2018-02-09 00:58] LABS: Basophils # 0.1 K/mcL (0.0-0.2); Basophils % 0.6 %; Eosinophils % 0.4 %; Hematocrit 43.3 % (37.5-50.1); Hemoglobin 14.1 g/dL (12.9-16.9); Immature Granulocytes % 0.2 % (0-4); Lymphocytes % 23.7 %; Mean Corpuscular HGB Conc 32.6 g/dL (31.6-35.5); Mean Corpuscular Hemoglobin 27.4 pg (28.0-33.3); Mean Corpuscular Volume 84.2 fL (83.0-100.0); Monocytes # 0.7 K/mcL (0.0-1.3); Neutrophils # 5.6 K/mcL (1.6-8.9); Platelet Count 212 K/mcL (140-400); Red Blood Count 5.14 M/mcL (4.19-5.50); Red Cell Distribution Width 14.1 % (11.5-14.5); Segmented Neutrophils % 67.1 %
[2018-02-09 01:19] LABS: Alanine Aminotransferase 27 Units/L (7-52); Albumin 4.1 g/dL (3.5-5.7); Albumin/Globulin Ratio 1.4 (1.1-2.2); Alkaline Phosphatase 64 Units/L (34-104); Aspartate Amino Transferase 68 Units/L (13-39); BUN/Creatinine Ratio 28 (6-26); Bilirubin,Total 2.4 mg/dL (0.3-1.0); Blood Urea Nitrogen 24 mg/dL (6-20); Calcium 9.1 mg/dL (8.6-10.3); Carbon Dioxide 26 mEq/L (23-29); Chloride 108 mEq/L (98-107); Chol/HDL Ratio 2.7 (0-4.9); Cholesterol 149 mg/dL (< 200); Globulin 2.9 g/dL (2.4-3.5); Glucose 80 mg/dL (70-105); HDL Cholesterol 56 mg/dL (40-59); LDL Cholesterol,Calculated 74 mg/dL (0-99); Osmolality,Calculated 293 (280-300); Potassium 4.8 mEq/L (3.5-5.1); Sodium 140 mEq/L (136-145); Triglycerides 93 mg/dL (< 150); eGFR For African Americans > 60 (> 60); eGFR For Non-African Americans > 60 (> 60)
[2018-02-09] MEDS: diazePAM 10 MG TABLET PO PRN ×2 (02:36→06:18)
[2018-02-09] MEDS: 0.9 % Sodium Chloride 1,000 ML IVC SCH ×3 (02:37→19:48)
[2018-02-09] MEDS: *HR* HYDROcodone/Acet 5/325 mg TABLET PO PRN ×2 (03:23→19:46)
[2018-02-09] MEDS ORDERED: diazePAM 10 MG TABLET PO ONE (10:14)
[2018-02-09] MEDS ORDERED: diazePAM 10 MG TABLET PO SCH (11:30)
[2018-02-09] MEDS: diazePAM 10 MG TABLET PO SCH ×2 (12:57→14:18)
[2018-02-09] MEDS ORDERED: Pantoprazole 40 MG VIAL IVP ONE (15:07)
[2018-02-09] MEDS ORDERED: *HR* Promethazine 25 MG/ML VIAL IVP ONE (15:53)
--- NOTE | 2018-02-09 16:31 | Consult Note ---
Date of Encounter: 02/09/18 Time of Encounter: 15:45 Assessment & Recommendation (1) Panic attacks Current visit: Yes Status: Acute (2) Acute psychosis Current visit: Yes Status: Acute (3) Rhabdomyolysis Current visit: Yes Status: Acute Qualifiers: Rhabdomyolysis type: non-traumatic Qualified Code(s): M62.82 - Rhabdomyolysis (4) Malingering Current visit: Yes Status: Acute History of Present Illness Patient: known to practice within the last 3 years Requesting Physician: Mauricio Loomis Reason for consult: anxiety vs. psychosis History of present illness: Mr. Naranjo is a 37 year old male The patient is a 37-year-old -[place] male. He says he lives with his brother in [place]. The patient says he has been diagnosed with anxiety was previously given a diagnosis of F 41.0. The patient is reports that he has been on clonazepam for months for the past 3 months he went to live with his brother. History of present illness. The patient reports that 3 months ago he from his . And that he has had increased anxiety he says that he sees a psychiatrist once a week in the prescribed clonazepam but it is no longer working. The patient says it previously is presented to the emergency room and been treated with diet allotted or other medicines that have been helpful. Over the past 24 hours the patient received 102 mg of diazepam. He is slept occasionally but has basically woken up is not evidenced dysarthria ataxia or dysmetria. This was a Valium tolerance test and suggests a high tolerance to the medicine. Furthermore the patient's shaking banging and anxiety tend to reduce when unobserved or when asked to stick his hand out for vitals or to receive medicines. The patient was in his usual state of health and mood and June 2017 was released from the correctional facilities in the [facility] The patient reports being in [facility] and [place] corrections for the past 7-8 years he denies mental health problems and denies that he was in an RTU. . He has been seen by neurology for seizures and told that he does not have seizures. . The patient reports a negative surgery illness allergies and reports Lexapro clonazepam or his medicines. His family history is reportedly negative other than his kids may have an anxiety disorder. 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 The patient saw review of systems reveals that he is responded favorably to allotted and Ativan he is previously been treated with Thorazine and can tolerated Phenergan and Compazine. CC: Mauricio Loomis Past Med Surg Social Fam HX - Past Medical History Source: other Medical history: arthritis, asthma, DVT, GERD, GI bleed, hyperlipidemia, hypertension, liver disease, thyroid disease - Past Psychiatric History Psychiatric history: Reports: anxiety Family psychiatric history: Yes Family History of Suicide: None - Past Surgical History Surgical History: cholecystectomy, orthopedic, other, other - Social History Smoking Status: Current every day smoker Smokeless Tobacco Status: No Alcohol use: none Drug use: marijuana Occupational status: previously employed Current living situation: Home - Independent Activity Level: Independent ambulation Recent Out of Country Travel Within the Last 8 Weeks: No Exposure or Possible Exposure to Illness During Travel: No - Family History Mother History Unknown: Yes Medications & Allergies clonazePAM [Klonopin] 0.5 mg PO BID PRN 11/13/17 [History] Escitalopram [Lexapro] 10 mg PO DAILY 02/08/18 [History] Propranolol [Inderal] 10 mg PO TID 02/08/18 [History] 3 Allergy/AdvReac Type Severity Reaction Status Date / Time No Known Allergies Allergy Verified 11/14/17 05:09 Review of Systems Psychiatric: Reports: anxiety, change in appetite, irritability, panic attacks Psychiatry Exam - Constitutional Vitals: Temp Pulse Resp BP Pulse Ox 98 F 69 14 121/83 100 02/09/18 15:59 02/09/18 15:59 02/09/18 15:59 02/09/18 15:59 02/09/18 15:59 General appearance: age & developmentally appropriate, bizarre - Musculoskeletal Station: shaky Strength & Tone: abnormal extension, abnormal flexion - Psychiatric Patient Orientation: Yes Person, Yes Time, Yes Place, Yes Circumstance Level of alertness: Alert Behavior: nervous, uncooperative, impulsive Psychomotor activity: Repetitive movements Eye Contact: No Eye Contact Mood Description: Irritable Affect description: full range Speech Volume: Normal Speech pattern: normal rate Language & Vocabulary: consistent with education Thought Process: Intact Thought Content: Yes Intact Perceptual Disturbances: Yes Depersonalization Attention Span Ability: Capable of Sustained Attention Memory Description: Grossly Intact Patient Reliability: Not Reliable Historian Fund of knowledge: Yes average Intelligence Estimate: Above [place] Judgment: Good Insight: Full Results - Labs Labs: Laboratory Last Values WBC 8.3 K/mcL (4.3-11.1) 02/09/18 00:45 RBC 5.14 M/mcL (4.19-5.50) 02/09/18 00:45 Hgb 14.1 g/dL (12.9-16.9) 02/09/18 00:45 Hct 43.3 % (37.5-50.1) 02/09/18 00:45 MCV 84.2 fL (83.0-100.0) 02/09/18 00:45 MCH 27.4 pg (28.0-33.3) L 02/09/18 00:45 MCHC 32.6 g/dL (31.6-35.5) 02/09/18 00:45 RDW 14.1 % (11.5-14.5) 02/09/18 00:45 Plt Count 212 K/mcL (140-400) 02/09/18 00:45 MPV 11.0 fL (9.4-12.4) 02/09/18 00:45 Immature Gran % 0.2 % (0-4) 02/09/18 00:45 Seg Neutrophils % 67.1 % 02/09/18 00:45 Lymphocytes % 23.7 % 02/09/18 00:45 Monocytes % 8.0 % 02/09/18 00:45 Eosinophils % 0.4 % 02/09/18 00:45 Basophils % 0.6 % 02/09/18 00:45 Neutrophils # 5.6 K/mcL (1.6-8.9) 02/09/18 00:45 Lymphocytes # 2.0 K/mcL (0.6-4.6) 02/09/18 00:45 Monocytes # 0.7 K/mcL (0.0-1.3) 02/09/18 00:45 Eosinophils # 0.0 K/mcL (0.0-0.6) 02/09/18 00:45 Basophils # 0.1 K/mcL (0.0-0.2) 02/09/18 00:45 PT 14.0 Seconds (9.4-12.1) H 02/08/18 12:55 INR 1.3 04/17/18 12:55 Sodium 140 mEq/L (136-145) 02/09/18 00:45 Potassium 4.8 mEq/L (3.5-5.1) 02/09/18 00:45 Chloride 108 mEq/L (98-107) H 02/09/18 00:45 Carbon Dioxide 26 mEq/L (23-29) 02/09/18 00:45 BUN 24 mg/dL (6-20) H 02/09/18 00:45 Creatinine 0.86 mg/dL (0.70-1.30) 02/09/18 00:45 Est GFR ( Amer) > 60 (> 60) 02/09/18 00:45 Est GFR (Non-Af Amer) > 60 (> 60) 02/09/18 00:45 BUN/Creatinine Ratio 28 (6-26) H 02/09/18 00:45 Glucose 80 mg/dL (70-105) 02/09/18 00:45 POC Glucose 90 mg/dL (70-99) 02/08/18 13:23 Calculated Osmolality 293 (280-300) 02/09/18 00:45 Calcium 9.1 mg/dL (8.6-10.3) 02/09/18 00:45 Total Bilirubin 2.4 mg/dL (0.3-1.0) H 02/09/18 00:45 Direct Bilirubin 0.5 mg/dL (0.0-0.2) H 02/08/18 05:24 Indirect Bilirubin 2.4 mg/dL (0.0-1.2) H 02/08/18 05:24 AST 68 Units/L (13-39) H 02/09/18 00:45 ALT 27 Units/L (7-52) 02/09/18 00:45 Alkaline Phosphatase 64 Units/L (34-104) 02/09/18 00:45 Creatine Kinase 1936 Units/L (30-223) H 02/09/18 00:45 Troponin I 0.03 ng/mL (< 0.04) 02/08/18 12:55 Serum Total Protein 7.0 g/dL (6.4-8.9) 02/09/18 00:45 Albumin 4.1 g/dL (3.5-5.7) 02/09/18 00:45 Globulin 2.9 g/dL (2.4-3.5) 02/09/18 00:45 Albumin/Globulin Ratio 1.4 (1.1-2.2) 02/09/18 00:45 Triglycerides 93 mg/dL (< 150) 02/09/18 00:45 Cholesterol 149 mg/dL (< 200) 02/09/18 00:45 LDL Cholesterol, Calc 74 mg/dL (0-99) 02/09/18 00:45 VLDL Cholesterol, Calc 19 mg/dL (< 31) 02/09/18 00:45 HDL Cholesterol 56 mg/dL (40-59) 02/09/18 00:45 Cholesterol/HDL Ratio 2.7 (0-4.9) 02/09/18 00:45 TSH 1.380 mcIU/mL (0.340-5.600) 02/08/18 05:24 Salicylates < 2.5 mg/dL (15.0-30.0) L 02/08/18 05:24 Urine Opiates Screen Negative ng/mL (Bpofzk=018) 02/08/18 14:05 Acetaminophen < 10 mcg/mL (10-20) L 02/08/18 05:24 Ur Barbiturates Screen Negative ng/mL (Opcceg=887) 02/08/18 14:05 Ur Phencyclidine Scrn Negative ng/mL (Cutoff=25) 02/08/18 14:05 Ur Amphetamines Screen Negative ng/mL (Pmvgvs=6489) 02/08/18 14:05 U Benzodiazepines Scrn Negative ng/mL (Ijheaa=526) 02/08/18 14:05 Urine Cocaine Screen Negative ng/mL (Cutoff= 300) 02/08/18 14:05 U Marijuana (THC) Screen Positive ng/mL (Cutoff = 50) H 02/08/18 14:05 Ethyl Alcohol < 10 mg/dL (Less than 10) 02/08/18 05:24 Consult Discharge Plan - Plan Referrals: Floyd Pineda DO [Primary Care Provider] -
--- NOTE | 2018-02-09 18:31 | Internal Med Progress Note ---
Date of Encounter: 02/09/18 Time of Encounter: 18:29 - Assessment and plan (1) Acute psychosis Current Visit: Yes Status: Acute Assessment and plan: History of underlying psychiatric illness. with ntermittent anxiety attack. No suicidal or homicidal thoughts. Psychiatry saw the patient today and do not believe that he needs inpatient psych. The psychiatrist states the patient has demonstrated multiple risk factors for malingering. Recommends Compazine or Phenergan for his nausea, tremors, and hiccups. He recommended the Valium be discontinued. His presentation appears to be such that he needs to be directed toward self-care and discharge. All trials Phenergan and see how his symptoms improved. Plan is for discharge in a.m. if nothing changes (2) Rhabdomyolysis Current Visit: Yes Status: Acute Assessment and plan: Increased CPK with slight dehydration. Creatinine kinase slowly trending down will recheck in a.m. 3 L IV fluid given in the ER. Continue IV fluid normal saline 125 mL per hour with strict I and O's. Qualifiers: Rhabdomyolysis type: non-traumatic Qualified Code(s): M62.82 - Rhabdomyolysis (3) Elevated bilirubin Current Visit: Yes Status: Acute Assessment and plan: History of underlying liver disease. Slight elevated indirect bilirubin. Total bili decreased to 2.4, AST decreased to 68. Will monitor labs. Denies alcohol abuse with normal alcohol level in the ER. Continue conservative management. (4) Prerenal azotemia Current Visit: Yes Status: Acute Assessment and plan: Mild to moderate dehydration. BUN dropping nicely with normal creatinine level. IV fluid continuation. Monitor BMP. (5) DVT prophylaxis Current Visit: Yes Status: Acute Assessment and plan: Patient is ambulatory (6) Smoker Current Visit: Yes Status: Acute Assessment and plan: Smoking cessation education. Nicotine patch if agrees - Time Spent With Patient Total time spent is greater than 50% in coordination of care (as documented) at patient's floor/unit and/or counseling patient: - Subjective Interval history: Patient acts out at times. He would not uncover his head for me to examine him. I had to lift the cover and we will get him. He was somewhat uncooperative. The patient has requested Ativan, dilaudid, and Benadryl on multiple occasions throughout the day. - Constitutional Vitals: Temp Pulse Resp BP Pulse Ox 98 F 69 14 121/83 100 02/09/18 15:59 02/09/18 15:59 02/09/18 15:59 02/09/18 15:59 02/09/18 15:59 General appearance: Present: disheveled, A&O X 3, answers questions appropriately. Absent: cooperative - Head Head exam: Present: atraumatic, normocephalic - Eye Eye exam: Present: PERRL, conjuntiva pink, sclera anicteric. Absent: nystagmus Pupils: Present: PERRL - Neck Neck exam general surgery: Present: supple, trachea midline. Absent: lymphadenopathy - Respiratory Respiratory exam: Present: CTAB. Absent: accessory muscle use, rales, rhonchi, wheezes - Cardiovascular Cardiovascular exam: Present: RRR, +S1, +S2. Absent: diastolic murmur, gallop, rubs, systolic murmur - GI/Abdominal GI/Abdominal exam: Present: normal bowel sounds, soft, no peritoneal signs. Absent: distended, tenderness Additional comments: Patient is inducing himself to vomit at times. - Extremities Exam Extremities exam: Present: warm, radial pulses palpable and symmetrical. Absent : calf tenderness, cyanotic, pedal edema - Neurological Exam Neurological exam: Present: alert, CN II-XII intact, normal gait, oriented X3, no focal deficits. Absent: pronater drift, facial droop, speech deficit - Skin Skin exam: Present: dry, intact, normal color, warm Internal Medicine: Result - Labs CBC & Chem 7: 02/09/18 00:45 02/09/18 00:45 Labs: Short CBC 02/09/18 Range/Units 00:45 WBC 8.3 (4.3-11.1) K/mcL Hgb 14.1 (12.9-16.9) g/dL Hct 43.3 (37.5-50.1) % Plt Count 212 (140-400) K/mcL Neutrophils # 5.6 (1.6-8.9) K/mcL BMP 02/09/18 00:45 Sodium 140 Potassium 4.8 Chloride 108 H Carbon Dioxide 26 BUN 24 H Creatinine 0.86 Glucose 80 Calcium 9.1 Liver Function 02/09/18 Range/Units 00:45 Total Bilirubin 2.4 H (0.3-1.0) mg/dL AST 68 H (13-39) Units/L ALT 27 (7-52) Units/L Alkaline Phosphatase 64 (34-104) Units/L Albumin 4.1 (3.5-5.7) g/dL - ABG Interpretation ABG results: PT/INR, D-dimer PT 14.0 Seconds (9.4-12.1) H 02/08/18 12:55 Consult Discharge Plan - Plan Referrals: Floyd Pineda DO [Primary Care Provider] -
[2018-02-09] MEDS: clonazePAM 0.5 MG TABLET PO PRN (20:13)
[2018-02-09] MEDS ORDERED: Haloperidol Lactate 5 MG/ML VIAL IVP ONE (20:53)
--- NOTE | 2018-02-09 21:45 | Event Note ---
Date of Encounter: 02/09/18 Time of Encounter: 21:00 The patient is very agitated and anxious. Upon my assessment he is rocking back and forth in his bed demanding Valium. He was previously receiving Valium 20mg Q2hr for anxiety/agitation but it was discontinued today and he was started on Clonazepam 0.5mg BID. He states that this is not helping. I have called psychiatry who suggests to restart the Valium at 20mg PO Q6hrs PRN while awake. In the meantime while awaiting a return call from psychiatry he was given Haldol 2mg IVP x1 dose
--- NOTE | 2018-02-09 21:47 | Event Note ---
Date of Encounter: 02/09/18 Time of Encounter: 21:30 The patient was found crawling on the floor and reported that he fell. The fall was unwitnessed. He was informed that he would need a head CT since falling and he was explained the importance of this examination. He remains agitated and is refusing the head CT.
[2018-02-10] MEDS: diazePAM 10 MG TABLET PO PRN ×2 (01:33→15:55)
[2018-02-10] MEDS ORDERED: Ibuprofen 400 MG TABLET PO ONE (01:40)
[2018-02-10] MEDS: 0.9 % Sodium Chloride 1,000 ML IVC SCH ×2 (04:35→08:55)
[2018-02-10] MEDS: *HR* HYDROcodone/Acet 5/325 mg TABLET PO PRN (04:42)
[2018-02-10 05:29] LABS: Hematocrit 38.7 % (37.5-50.1); Mean Corpuscular HGB Conc 32.3 g/dL (31.6-35.5); Mean Corpuscular Hemoglobin 27.5 pg (28.0-33.3); Mean Corpuscular Volume 85.2 fL (83.0-100.0); Mean Platelet Volume 11.8 fL (9.4-12.4); Platelet Count 132 K/mcL (140-400); Red Blood Count 4.54 M/mcL (4.19-5.50)
[2018-02-10 05:35] LABS: Hemoglobin 12.5 g/dL (12.9-16.9)
[2018-02-10 06:06] LABS: Alanine Aminotransferase 25 Units/L (7-52); Albumin 3.4 g/dL (3.5-5.7); Albumin/Globulin Ratio 1.5 (1.1-2.2); Alkaline Phosphatase 51 Units/L (34-104); Aspartate Amino Transferase 54 Units/L (13-39); BUN/Creatinine Ratio 24 (6-26); Bilirubin,Direct 0.3 mg/dL (0.0-0.2); Bilirubin,Indirect 1.5 mg/dL (0.0-1.2); Bilirubin,Total 1.8 mg/dL (0.3-1.0); Blood Urea Nitrogen 17 mg/dL (6-20); Calcium 8.5 mg/dL (8.6-10.3); Carbon Dioxide 21 mEq/L (23-29); Chloride 107 mEq/L (98-107); Creatine Kinase 1107 Units/L (30-223); Globulin 2.3 g/dL (2.4-3.5); Glucose 76 mg/dL (70-105); Osmolality,Calculated 284 (280-300); Potassium 3.6 mEq/L (3.5-5.1); Sodium 137 mEq/L (136-145); Total Protein 5.7 g/dL (6.4-8.9); eGFR For African Americans > 60 (> 60); eGFR For Non-African Americans > 60 (> 60)
[2018-02-10 15:05] VITALS: BP 132/87
--- NOTE | 2018-02-10 15:15 | Discharge Summary ---
- NOTES TO OUTPATIENT PROVIDER Notes to Outpatient Provider: Patient was admitted and evaluated by psychiatry department. He will be discharged to follow-up with his normal psychiatrist. He is a malingerer by definition per psychiatry's evaluation and note. Date of Encounter: 02/10/18 Time of Encounter: 15:13 - Discharge Diagnosis (1) Acute psychosis Priority: Primary Status: Resolved (2) Rhabdomyolysis Priority: Primary Status: Resolved Qualifiers: Rhabdomyolysis type: non-traumatic Qualified Code(s): M62.82 - Rhabdomyolysis (3) Elevated bilirubin Priority: Primary Status: Resolved (4) Prerenal azotemia Priority: Primary Status: Resolved (5) Smoker Priority: Primary Status: Acute (6) Malingerer Priority: Primary Status: Acute Hospital course: Mr. Naranjo is a 37 year old male who resides with his brother in [place]. He stated he was in his usual mood and health until June 2017 when he was released from the correctional facility in a [facility]. 3 months ago he from his and has had increased anxiety. He saw a psychiatrist who prescribed clonazepam but it is no longer working. He was given a Valium tolerance test while here which suggests a high tolerance to the medication. Patient's shaking banging anxiety tend to reduce when unobserved or when asked to stick his hand out for vitals or to receive medications. He continually is asking for the dilaudid, Benadryl, and Ativan. Psychiatry has seen the patient and recommended Valium be discontinued. It is likely according to their note that this patient is tolerant to high doses of benzodiazepines and it is unlikely he would develop drug withdrawal. He has also demonstrated multiple risk factors for malingering as per the psychiatrist Dr. Garcia' note. It is likely he is seeking dilaudid, Ativan, and Benadryl as well as any other medications that he can be given. This is inconsistent with his medical needs. Nausea was not relieved by Zofran but he felt was helped by Phenergan. Last night he stated he fell was found crawling on the floor which she had done multiple times through the day yesterday. He was also crawling on the floor today. He declined a CT of the head last night and had no physical injury. It was an unwitnessed fall. Most of his time is spent lying in bed with his head covered up. He is not cooperative and acts out. When he realized he was being discharged she has been slamming the bed rails, swearing carrying on an stated he is not leaving. Psychiatry suggested he be discharged as he is a malingerer and security will be called to escort him from the building. He is definitely in drug-seeking behavior mode. Discharge discussed with: patient, nurse, marketing sales consultant - Time Spent with Patient Total time spent providing and/or coordinating discharge services: Less than 30 minutes - Discharge Medications Home Medications: clonazePAM [Klonopin] 0.5 mg PO BID PRN 11/13/17 [History] Escitalopram [Lexapro] 10 mg PO DAILY 02/08/18 [History] Propranolol [Inderal] 10 mg PO TID 02/08/18 [History] Allergies/Adverse Reactions: 3 Allergy/AdvReac Type Severity Reaction Status Date / Time No Known Allergies Allergy Verified 11/14/17 05:09 Date of admission: 02/08/18 12:05 Primary care physician: Floyd Pineda DO Discharging clinician: Fabiola Sands Anticipated date of discharge: 02/10/18 - Constitutional Vitals: Temp Pulse Resp BP Pulse Ox 98.8 F 77 20 132/87 100 02/10/18 15:04 02/10/18 15:04 02/10/18 15:04 02/10/18 15:04 02/10/18 15:04 General appearance: Present: disheveled, A&O X 3, no acute distress. Absent: cooperative, pleasant, answers questions appropriately - Head Head exam: Present: atraumatic, normocephalic - Eye Eye exam: Present: PERRL, conjuntiva pink, sclera anicteric Pupils: Present: PERRL - Neck Neck exam general surgery: Present: supple, trachea midline. Absent: lymphadenopathy - Respiratory Respiratory exam: Present: CTAB. Absent: accessory muscle use, rales, rhonchi, wheezes - Cardiovascular Cardiovascular exam: Present: RRR, +S1, +S2. Absent: diastolic murmur, gallop, rubs, systolic murmur - GI/Abdominal GI/Abdominal exam: Present: normal bowel sounds, soft, no peritoneal signs. Absent: distended, tenderness - Extremities Exam Extremities exam: Present: warm, radial pulses palpable and symmetrical. Absent : calf tenderness, cyanotic, pedal edema - Neurological Exam Neurological exam: Present: CN II-XII intact, oriented X3, no focal deficits. Absent: pronater drift, facial droop, speech deficit - Skin Skin exam: Present: dry, intact, normal color, warm - Patient Status Disposition: Home, Self-Care Condition: Good Overall status at discharge: patient is back to baseline - Discharge Instructions Follow Up With: Floyd Pineda DO [Primary Care Provider] - - Diet and Activity Activity: resume usual activities as tolerated Diet: advance to your usual diet
--- NOTE | 2018-02-11 14:48 | Electrocardiograph Report ---
[address] [address] Test Date: 2018-02-08 Pat Name: Marcello Naranjo Department: 103 Room: 3B Gender: M Steel Analyst: SUJIT : 1980 Requested By: [id number] Order Number: [id number] Reading MD: Kyree Darden Measurements Intervals [place] Rate: 144 P: 79 [place]: 119 QRS: -87 QRSD: 88 T: 65 QT: 264 QTc: 347 Interpretive Statements SINUS TACHYCARDIA INDETERMINATE AXIS Electronically Signed On 02-11-2018 14:47:25 EDT by Kyree Darden
== END 2018-02-10 16:06 | disposition home or self-care (01) ==
LOC: EMEROO 04:50 → 3BNU 04:50
PROVIDERS: ADMIT General Practice; ATTEND Family Medicine

== ENCOUNTER 2019-06-06 23:03 | Observation (INO) ==
[2019-06-07 01:59] LABS: Basophils # 0.1 K/mcL (0.0-0.2); Basophils % 1.3 %; Eosinophils # 0.2 K/mcL (0.0-0.6); Eosinophils % 5.3 %; Hematocrit 37.4 % (37.5-50.1); Hemoglobin 11.9 g/dL (12.9-16.9); Lymphocytes # 2.4 K/mcL (0.6-4.6); Lymphocytes % 52.1 %; Mean Corpuscular HGB Conc 31.8 g/dL (31.6-35.5); Mean Corpuscular Hemoglobin 26.4 pg (28.0-33.3); Mean Corpuscular Volume 82.9 fL (83.0-100.0); Mean Platelet Volume 9.9 fL (9.4-12.4); Monocytes # 0.3 K/mcL (0.0-1.3); Monocytes % 6.6 %; Neutrophils # 1.6 K/mcL (1.6-8.9); Platelet Count 209 K/mcL (140-400); Red Blood Count 4.51 M/mcL (4.19-5.50); Red Cell Distribution Width 14.3 % (11.5-14.5); Segmented Neutrophils % 34.7 %; White Blood Count 4.6 K/mcL (4.3-11.1)
[2019-06-07 02:19] LABS: BUN/Creatinine Ratio 14 (6-26); Blood Urea Nitrogen 12 mg/dL (6-20); Calcium 9.6 mg/dL (8.6-10.3); Carbon Dioxide 29 mEq/L (23-29); Chloride 104 mEq/L (98-107); Glucose 88 mg/dL (70-105); Osmolality,Calculated 283 (280-300); Potassium 4.3 mEq/L (3.5-5.1); Sodium 137 mEq/L (136-145); eGFR For African Americans > 60 (> 60); eGFR For Non-African Americans > 60 (> 60)
[2019-06-07] MEDS ORDERED: Gadolinium Contrast Agent (WT Based) IV PRN ×2 (07:30→19:35)
[2019-06-07] MEDS ORDERED: Naloxone 0.4 MG/ML INJ IVP PRN ×2 (09:37→19:35)
[2019-06-07] MEDS ORDERED: Acetaminophen 325 MG TABLET PO PRN ×2 (09:37→19:35)
[2019-06-07] MEDS ORDERED: *HR* LORazepam 2 MG/ML VIAL IVP ONE (09:45)
[2019-06-07] MEDS ORDERED: Bupivacaine/EPI 1:200k 0.5%PF 10 ML VIAL ONE (15:33)
[2019-06-07] MEDS ORDERED: clonazePAM 0.5 MG TABLET PO PRN ×3 (15:47→19:35)
[2019-06-07] MEDS ORDERED: *HR* FentaNYL (PF) 100 MCG/2 ML VIAL ONE (16:09)
[2019-06-07] MEDS ORDERED: Ondansetron 4 MG/2 ML VIAL ONE (16:09)
[2019-06-07] MEDS ORDERED: *HR* Propofol 200 MG/20 ML VIAL IVP ONE (16:09)
[2019-06-07] MEDS ORDERED: Dexamethasone 4 MG/ML VIAL ONE (16:09)
[2019-06-07] MEDS ORDERED: *HR* Midazolam HCl 2 MG/2 ML VIAL ONE ×2 (16:09→16:43)
[2019-06-07] MEDS ORDERED: Lidocaine -MPF 2% 2 ML VIAL ONE (16:09)
[2019-06-07] MEDS ORDERED: *HR* Promethazine 25 MG/ML VIAL IVP PRN ×2 (16:51→19:35)
[2019-06-07] MEDS ORDERED: Piperacillin/Tazobactam 3.375 GM in 0.9 % Sodium Chloride Mini Bag 100 ML IVP ONE ×2 (16:51→19:35)
[2019-06-07] MEDS ORDERED: Ondansetron 4 MG/2 ML VIAL IVP ONE ×2 (16:51→19:35)
[2019-06-07] MEDS ORDERED: *HR* HYDROmorphone (PF) 1 MG/ML SYRINGE IVP PRN ×2 (16:51→19:35)
[2019-06-07] MEDS ORDERED: *HR* OxyCODONE Immed Rel 5 MG TABLET PO PRN ×2 (16:51→19:35)
[2019-06-07] MEDS ORDERED: *HR* PHENYLEPHRINE 1,000 MCG/10 ML SYRINGE IVP ONE (17:28)
[2019-06-07] MEDS ORDERED: Vancomycin 1,000 MG VIAL ONE (17:42)
[2019-06-07] MEDS ORDERED: 0.9 % Sodium Chloride Mini Bag 100 ML ONE (17:42)
[2019-06-07] MEDS ORDERED: Water for inj. (sterile) 20 ML ONE (17:46)
[2019-06-07] MEDS ORDERED: EPHEDrine 50 MG/ML VIAL ONE (17:55)
[2019-06-07 19:34] VITALS: BP 150/95
[2019-06-07] MEDS ORDERED: Gabapentin 300 MG CAPSULE PO SCH ×2 (21:00)
[2019-06-08] MEDS ORDERED: Piperacillin/Tazobactam 3.375 GM in 0.9 % Sodium Chloride Mini Bag 100 ML IVPB SCH
[2019-06-08] MEDS ORDERED: clonazePAM 0.5 MG TABLET PO PRN (09:00)
[2019-06-08] MEDS ORDERED: clonazePAM 0.5 MG TABLET PO SCH (09:00)
== END 2019-06-07 21:30 | disposition left against medical advice (07) ==
LOC: EMEROOARM 23:03 → 3NENU 23:03 → SUATTDRO 06-07 03:10 → 3NENU 06-07 03:53
PROVIDERS: ADMIT Pharmacist; ATTEND Pharmacist

== ENCOUNTER 2019-06-08 02:05 | Inpatient (IN) ==
--- NOTE | 2019-06-08 03:02 | Emergency Department Note ---
Disposition Clinical Impression: Osteomyelitis of finger Disposition: Admitted As Inpatient Condition: Fair Time of Disposition: 03:27 General Adult HPI - General Stated complaint: javier wednesday/left AMA amputation of finger 3NE Time Seen by Provider: 06/08/19 02:40 Source: patient Mode of arrival: private vehicle Limitations: no limitations Nursing Notes Reviewed: Yes Vital Signs Reviewed: Yes - History of Present Illness Pt Subjective Complaint: "I was admitted after hand surgery, but then I left." Onset (ago): hour(s) (2) Location: left, right, upper extremity Radiation: non-radiation Pain Severity: moderate Quality: dull Consistency: constant Improves with: nothing Worsens with: nothing Associated symptoms: Reports: denies other symptoms. Denies: confusion, chest pain, cough, fever/chills, headaches, malaise, nausea/vomiting, rash, syncope, weakness Treatments Prior to Arrival: other (surgical debridement, biopsies) - Related Data Home Medications Medication Instructions Recorded Confirmed Gabapentin [Neurontin] 300 mg PO TID 06/07/19 06/07/19 Sennosides [Senna] 8.6 mg PO BID 06/07/19 06/07/19 Tamsulosin [Flomax] 0.4 mg PO DAILY 06/07/19 06/07/19 Previous Rx's Medication Instructions Recorded Ciprofloxacin [Cipro] 500 mg PO BID 30 Days #60 tablet 06/07/19 MDD 1000 Allergies Allergy/AdvReac Type Severity Reaction Status Date / Time No Known Allergies Allergy Verified 06/08/19 03:26 All systems ED: reviewed and negative except as stated. Review of Systems: As Per HPI Constitutional: Denies: fever, chills, weakness Cardiovascular: Denies: chest pain, palpitations, syncope Gastrointestinal: Denies: abdominal pain, nausea, vomiting Musculoskeletal: Denies: back pain, neck pain, joint swelling Neurological: Denies: weakness, confusion, vertigo Hematological/Lymphatic: Denies: easy bleeding, easy bruising Past Medical History - Past Medical History Attestation: Yes The following information was validated with the patient. Source: patient Medical history: Reports: arthritis, DVT, GERD, GI bleed, hyperlipidemia, hypertension, liver disease, thyroid disease Surgical history: Reports: cholecystectomy, orthopedic, other, other Psychiatric history: Reports: anxiety - Social History Smoking Status: Never smoker Smokeless Tobacco Status: No Alcohol use: Reports: none Drug use: Reports: marijuana Physical Exam - General Limitations: no limitations General appearance: alert, in no apparent distress - Head Head exam: atraumatic, normocephalic, normal inspection - Eye Eye exam: Present: normal appearance. Absent: scleral icterus, conjunctival injection, periorbital swelling - ENT ENT exam: mucous membranes moist - Neck Neck exam: Present: normal inspection, trachea midline. Absent: meningismus - Respiratory Respiratory exam: Present: normal lung sounds bilaterally. Absent: respiratory distress - Cardiovascular Cardiovascular exam: Present: regular rate, normal rhythm - Extremities Exam Extremities exam: Present: tenderness - Expanded Upper Extremity Exam Shoulder exam: Present: normal inspection, full ROM Arm exam: Present: normal inspection Elbow exam: Present: normal inspection, full ROM Forearm/Wrist exam: Present: normal inspection, full ROM. Absent: tenderness Hand exam: Present: tenderness, swelling, skin avulsion, erythema, amputation, other (dressings on both hands - blood soaked and shifted, not fully covering the wounds). Absent: full ROM Hand L/R front image: 1 - other (surgical incision, sutures and a drain present. Mild edema, no erythema, no purulent drainage), amputation (distal phalanx) 2 - other (surgical incision, sutures in place. Mild edema, mild erythema, no drainage.) Neuromotor exam: Normal: wrist extension, thumb opposition, thumb adduction, fingers 2-5 abduction. Abnorm: thumb IP flexion (distal phalanx of left thumb absent) Neurosensory exam: Normal: radial nerve, ulnar nerve, median nerve Hand tendon exam: Normal: flexor digitorum profundus (location), flexor digitorum superficialis (location), extensor tendon (location) Vascular exam: Normal: capillary refill, radial pulse, ulnar pulse - Neurological Exam Neurological exam: Present: alert, oriented X3, CN II-XII intact, normal gait - Psychiatric Psychiatric exam: Present: normal affect, normal mood - Skin Skin exam: Present: warm, dry, normal color Course Course Narrative: Patient returns to [facility] for "readmission" after signing out AMA a couple hours ago. He states that he had surgery this evening and when he woke up he was confused and "just felt like he had to leave." He describes a similar event at [facility] after a surgery several years ago. He states that he was told he needed IV antibiotics and additional surgery on his fingers. He is agreeable to stay in the hospital now, and adds that he accidentally just locked his keys in his car. Patient's wounds were partially dressed. The dressings were blood soaked and not fully covering the wounds. These were removed, wounds inspected, and new dressings applied. Patient tolerated this well. Vitals are normal. No labs needed. IV access obtained and patient given fluids. Hospitalist has been paged. Case discussed with Dr. Valles. She states that the patient can go back to the room he was previously in and that this is not technically a "new admission". Charge nurse aware and will contact bed management. Vital Signs Temperature 98.8 F 06/08/19 03:21 Pulse Rate 90 06/08/19 03:21 Respiratory Rate 20 06/08/19 03:21 Blood Pressure 102/62 06/08/19 03:21 O2 Sat by Pulse Oximetry 100 06/08/19 03:21 Temperature 98.8 F 06/08/19 03:21 Pulse Rate 90 06/08/19 03:21 Respiratory Rate 20 06/08/19 03:21 Blood Pressure 102/62 06/08/19 03:21 O2 Sat by Pulse Oximetry 100 06/08/19 03:21 Oxygen Delivery Oxygen Delivery Room Air Medical Decision Making - Medical Records Medical records reviewed: Yes I reviewed the patient's medical records.
[2019-06-08] MEDS ORDERED: 0.9 % Sodium Chloride 1,000 ML IVC ONE (03:22)
--- NOTE | 2019-06-08 04:48 | Emergency Department Note ---
Disposition Clinical Impression: Osteomyelitis of finger Disposition: Admitted As Inpatient Condition: Fair Time of Disposition: 03:27 General Adult HPI - General Chief complaint: ED General Medical Stated complaint: javier wednesday/left AMA amputation of finger 3NE Time Seen by Provider: 06/08/19 02:40 Source: patient Mode of arrival: private vehicle Limitations: no limitations Nursing Notes Reviewed: Yes Vital Signs Reviewed: Yes - History of Present Illness Location: left, right, upper extremity Pain Scale: 6 Quality: dull Improves with: nothing Worsens with: nothing Associated symptoms: Reports: denies other symptoms. Denies: confusion, chest pain, cough, fever/chills, headaches, malaise, nausea/vomiting, rash, syncope, weakness Treatments Prior to Arrival: other (surgical debridement, biopsies) - Related Data Home Medications Medication Instructions Recorded Confirmed Gabapentin [Neurontin] 300 mg PO TID 06/07/19 06/08/19 Sennosides [Senna] 8.6 mg PO BID 06/07/19 06/08/19 Tamsulosin [Flomax] 0.4 mg PO DAILY 06/07/19 06/08/19 Previous Rx's Medication Instructions Recorded Ciprofloxacin [Cipro] 500 mg PO BID 30 Days #60 tablet 06/07/19 MDD 1000 Allergies Allergy/AdvReac Type Severity Reaction Status Date / Time No Known Allergies Allergy Verified 06/08/19 03:26 Constitutional: Denies: fever, chills, weakness Cardiovascular: Denies: chest pain, palpitations, syncope Gastrointestinal: Denies: abdominal pain, nausea, vomiting Musculoskeletal: Denies: back pain, neck pain, joint swelling Neurological: Denies: weakness, confusion, vertigo Hematological/Lymphatic: Denies: easy bleeding, easy bruising Past Medical History - Past Medical History Medical history: Reports: arthritis, DVT, GERD, GI bleed, hyperlipidemia, hypertension, liver disease, thyroid disease, other Surgical history: Reports: cholecystectomy, orthopedic, other, other Psychiatric history: Reports: anxiety - Social History Smoking Status: Never smoker Smokeless Tobacco Status: No Alcohol use: Reports: none Drug use: Reports: marijuana Physical Exam - General Limitations: no limitations General appearance: alert, in no apparent distress Course Vital Signs Temperature 98.8 F 06/08/19 03:21 Pulse Rate 90 06/08/19 03:21 Respiratory Rate 20 06/08/19 03:21 Blood Pressure 102/62 06/08/19 03:21 O2 Sat by Pulse Oximetry 100 06/08/19 03:21 Temperature 98.8 F 06/08/19 03:21 Pulse Rate 90 06/08/19 03:21 Respiratory Rate 20 06/08/19 03:21 Blood Pressure 102/62 06/08/19 03:21 O2 Sat by Pulse Oximetry 100 06/08/19 03:21 Oxygen Delivery Oxygen Delivery Room Air Attestation Statement - Attestation Attestation: I, Naresh Villa MD, personally evaluated this patient and discussed their management with the midlevel provicer, PAC/PIPELINE DISPATCHER. I reviewed the midlevel provider's note and agree with the documented findings, medical decision making, and plan of care. 38-year-old male presents to the emergency department for readmission to the hospital. Patient just left here a few hours ago AMA. This patient was seen by me and admitted approximately 24 hours ago with osteomyelitis of his left thumb. He did undergo surgery by Ortho-last evening. After surgery station states for some reason he became upset and agitated in the left AMA but now returns stating he should never have left and he is willing to come back in the hospital. The hospitalist, Dr. Ovalle, was consulted and advised that patient could just be readmitted under the same admission.
--- NOTE | 2019-06-08 07:28 | Orthopedics Progress Note ---
Date of Encounter: 06/08/19 Time of Encounter: 07:24 Subjective Interval history: S: Patient seen this morning. He left the hospital AGAINST MEDICAL ADVICE last night but did return. He said he simply just needed to leave. Today he has expected but not significant pain localized left thumb tip and right long fingertip. No new injuries or complaints. O: Afebrile and vital signs are stable Left thumb wound intact and the 2 small [place] drains are also intact. No purulence. Left hand is warm and well-perfused with good capillary refill. Neurologically intact left hand. Right long finger wound is intact and the stitches are in place. No purulence. Right hand is warm and well-perfused with good capillary refill. Neurologically intact to the right hand. A: Osteomyelitis of left thumb with abscess post I&D including debridement of bone. Presumed osteomyelitis of the right long finger middle and distal phalanges post I&D with bone biopsies. P: At this point my recommendation is for IV antibiotics. Infectious disease specialists have been consulted to assist in management of this. I anticipate 6 weeks of antibiotics. I did discuss with the patient that these recurrent fingertip problems are likely related to his Buerger's disease. He does not smoke cigarettes but says he smokes marijuana daily. I did recommend quitting as this may help with perfusion of the digits. Daily dressing changes. I anticipate point the [place] drains from the left thumb either today or tomorrow depending on drainage. Objective Vital signs: Vital Signs Temp Pulse Resp BP Pulse Ox 06/08/19 06:54 98.0 F 64 16 98/55 97 06/08/19 05:50 97.7 F 58 17 100/59 98 06/08/19 05:11 20 132/74 06/08/19 03:21 98.8 F 90 20 102/62 100 Intake and Output 06/07/19 06/07/19 06/08/19 15:59 23:59 07:59 Intake Total 1000 / 1000 Balance 1000 / 1000 Intake: IV Fluids 1000 / 1000 0.9 % Sodium Chloride 1,000 ML 1000 / 1000 @ 3750 mls/hr IVC .Q16M ONE Rx# :[id number] Other: Weight 68.039 kg Patient Weight 06/08/19 23:59 Weight 68.039 kg Consult Discharge Plan - Plan Referrals: NONE,PCP [Primary Care Provider] -
[2019-06-08] MEDS ORDERED: Naloxone 0.4 MG/ML INJ IVP PRN (09:26)
[2019-06-08] MEDS ORDERED: traMADol 50 MG TABLET PO PRN (09:26)
[2019-06-08] MEDS ORDERED: Acetaminophen 325 MG TABLET PO PRN (09:26)
--- NOTE | 2019-06-08 09:37 | Internal Med Progress Note ---
Hospitalist Progress Note - Encounter Date of Encounter: 06/08/19 Time of Encounter: 09:32 - Subjective Interval History: Mr Naranjo left last night AMA but returned also last night. He initially claimed he went to court because he had some custody battles with his ex over his son. But when he was told that the timeframe does not add up by the courts are not open at night he later stated that he went to his cousin's house last night. Of note he is status post I&D and debridement of the bone of right upper extremity finger. He reports pain in the digits of his upper extremity GEN: Denies fever, chills or malaise HEENT: Denies headache blurriness, or dysphagia RESP: Denies SOB or cough CV: Denies chest pain or palpitations GI: Denies Nausea, vomiting, diarrhea or constipation Reviewed current in hospital medications with modifications see orders Reviewed Routine labs - Exam Vitals: Temp Pulse Resp BP Pulse Ox 98.0 F 64 16 98/55 97 06/08/19 06:54 06/08/19 06:54 06/08/19 06:54 06/08/19 06:54 06/08/19 06:54 Exam: GEN: NAD, A&O x 3 SKIN: [place] warm acyanotic not jaundice HEART: RRR, no murmurs LUNGS: CTA no wheeze or crackles, overall non labored ABDOMEN; Soft, non tender or distended, BS x 4 normactive EXT: No LE edema, Pedal pulses 1+, radial pulses 2+, dressing overlying bilateral upper extremity digits clean dry and intact with no serosanguineous stains PSYCH: Mood depressed/irritable and affect flat - Assessment and Plan (1) Osteomyelitis of finger Current Visit: Yes Status: Acute Assessment and Plan: I&D and debridement. He is Buerger's disease just put his him at increased risk for digital ischemia. He continues to smoke marijuana daily (2) Buergers disease Current Visit: Yes Status: Acute Assessment and Plan: Educated patient's on Buerger's disease, highlighting the complications of continued marijuana use including multiple amputation and appears to have good understanding or comprehension of our discussion however does not seem phased about his disease condition and would likely not discontinue marijuana use (3) Marijuana smoker, continuous Current Visit: Yes Status: Acute Assessment and Plan: Continue to encourage cessation (4) Extremity pain Current Visit: No Status: Acute Assessment and Plan: Secondary to osteomyelitis, complicated by his Buerger's disease, ideal treatment for his pain is cessation of marijuana use narcotics alone would not resolve his pain (5) FRANCISCO (generalized anxiety disorder) Current Visit: No Status: Acute Assessment and Plan: Continue clonazepam likely worsened by his continued marijuana use DVT Prophylaxis: SCDs intermittently - Time Spent with Patient Total time spent is greater than 50% in coordination of care (as documented) at patient's floor/unit and/or counseling patient: Consult Discharge Plan - Plan Referrals: NONE,PCP [Primary Care Provider] - (4) Extremity pain Qualifiers: Extremity pain location: unspecified extremity Qualified Code(s): M79.609 - Pain in unspecified limb
[2019-06-08] MEDS: Gabapentin 300 MG CAPSULE PO SCH ×2 (14:40→20:13)
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
[2019-06-08] MEDS: Sennosides 8.6 MG TABLET PO SCH (20:12)
[2019-06-08] MEDS: clonazePAM 1 MG TABLET PO SCH (20:12)
[2019-06-08] MEDS: Piperacillin/Tazobactam 3.375 GM in 0.9 % Sodium Chloride Mini Bag 100 ML IVPB SCH (20:14)
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
[2019-06-09] MEDS: Piperacillin/Tazobactam 3.375 GM in 0.9 % Sodium Chloride Mini Bag 100 ML IVPB SCH ×3 (03:34→21:48)
[2019-06-09 04:44] LABS: Basophils # 0.1 K/mcL (0.0-0.2); Basophils % 0.8 %; Eosinophils # 0.2 K/mcL (0.0-0.6); Eosinophils % 2.5 %; Hematocrit 34.6 % (37.5-50.1); Hemoglobin 10.9 g/dL (12.9-16.9); Immature Granulocytes % 0.2 % (0-4); Lymphocytes # 2.8 K/mcL (0.6-4.6); Lymphocytes % 46.7 %; Mean Corpuscular HGB Conc 31.5 g/dL (31.6-35.5); Mean Corpuscular Hemoglobin 26.5 pg (28.0-33.3); Mean Corpuscular Volume 84.2 fL (83.0-100.0); Mean Platelet Volume 10.3 fL (9.4-12.4); Monocytes # 0.3 K/mcL (0.0-1.3); Monocytes % 5.5 %; Neutrophils # 2.6 K/mcL (1.6-8.9); Platelet Count 201 K/mcL (140-400); Red Blood Count 4.11 M/mcL (4.19-5.50); Red Cell Distribution Width 14.1 % (11.5-14.5); Segmented Neutrophils % 44.3 %
[2019-06-09 05:04] LABS: BUN/Creatinine Ratio 16 (6-26); Blood Urea Nitrogen 15 mg/dL (6-20); Calcium 8.7 mg/dL (8.6-10.3); Carbon Dioxide 31 mEq/L (23-29); Chloride 104 mEq/L (98-107); Glucose 86 mg/dL (70-105); Magnesium 1.9 mg/dL (1.6-2.6); Osmolality,Calculated 288 (280-300); Sodium 139 mEq/L (136-145); eGFR For African Americans > 60 (> 60); eGFR For Non-African Americans > 60 (> 60)
--- NOTE | 2019-06-09 07:43 | Orthopedics Progress Note ---
Date of Encounter: 06/09/19 Time of Encounter: 07:41 Subjective Interval history: S: The patient is resting in bed comfortably with significantly improved pain to the left thumb. Mild pain to the right long finger O: Afebrile on the vital signs are stable Left thumb with minimal serous drainage. No purulence. The [place] drains were pulled. Minimal tenderness to the thumb tip. No cellulitis. Neurovascularly intact on the left. Right long finger with no drainage and wounds are healing nicely. Minimal tenderness to the right long fingertip. Neurovascularly intact on the right. Preliminary Gram stain shows bacteria/osteomyelitis of the left thumb Preliminary Gram stain does not show any organisms on the right long finger A: Left thumb proximal phalangeal osteomyelitis Presumed osteomyelitis of the right long finger though cultures and biopsies are pending P: The left thumb looks great clinically without significant drainage, no fluctuance, no cellulitis, and minimal tenderness. The drains are out. Appreciate input by Dr. Wilkinson of ID. Appreciate input by Dr. Zambrano of vascular surgery. Daily dressing changes to the left thumb and the right long finger. We will follow the cultures and biopsy results of the right long finger. Objective Vital signs: Vital Signs Temp Pulse Resp BP Pulse Ox 06/09/19 06:26 97.4 F L 55 18 111/57 98 06/09/19 05:07 98.3 F 60 14 115/72 97 06/08/19 23:54 98.0 F 62 18 120/62 99 06/08/19 19:03 98.3 F 92 16 118/72 96 06/08/19 17:05 97.9 F 74 16 109/58 96 06/08/19 11:50 98.1 F 70 16 108/54 99 Intake and Output 06/08/19 06/08/19 06/09/19 15:59 23:59 07:59 Intake Total 720 / 2330 610 / 2330 200 / 200 Balance 720 / 2330 610 / 2330 200 / 200 Intake: IV Fluids 250 / 1250 200 / 200 Zosyn 3.375 GM In 0.9 % Sodium 200 / 200 Chloride (Mini-Bag +) 100 ML @ 25 mls/hr IVPB Q8H [facility] Rx#: [id number] Vancocin 1,000 MG In 0.9 % 250 / 250 Sodium Chloride 250 ML @ 167 mls/hr IVPB ONCE ONE Rx#: [id number] Oral 720 / 1080 360 / 1080 Other: Meal Lunch Dinner Percent of Meal Consumed 100% 100% # Voids 1 - Labs CBC & BMP: 06/09/19 03:27 06/09/19 03:27 Labs: Abnormal lab results RBC 4.11 M/mcL (4.19-5.50) L 06/09/19 03:27 Hgb 10.9 g/dL (12.9-16.9) L 06/09/19 03:27 Hct 34.6 % (37.5-50.1) L 06/09/19 03:27 MCH 26.5 pg (28.0-33.3) L 06/09/19 03:27 MCHC 31.5 g/dL (31.6-35.5) L 06/09/19 03:27 Carbon Dioxide 31 mEq/L (23-29) H 06/09/19 03:27 Consult Discharge Plan - Plan Referrals: NONE,PCP [Primary Care Provider] -
[2019-06-09] MEDS: Gabapentin 300 MG CAPSULE PO SCH ×3 (09:21→21:42)
[2019-06-09] MEDS: Sennosides 8.6 MG TABLET PO SCH ×2 (09:21→21:43)
[2019-06-09] MEDS: clonazePAM 1 MG TABLET PO SCH ×2 (09:21→21:42)
--- NOTE | 2019-06-09 10:07 | Internal Med Progress Note ---
Hospitalist Progress Note - Encounter Date of Encounter: 06/09/19 Time of Encounter: 10:07 - Subjective Interval History: Mr Naranjo was seen by the vascular surgeon they recommended noninvasive testing and rheumatology follow-up for his presumed Buerger's disease. Today the patient is requesting discharge claiming he needs to go bury his uncle. Of note the patient already went AMA 2 days ago but returned less than 6 hours later claiming he had to go to court however the time of his AMA was in the evening/night and when he was confronted that the courts were closed he claims when to go see his cousin. He does deny any IV drug use. Admits to marijuana use daily for his IBS symptoms. He is currently being considered for a PICC line, and he stated ECF is not an option. This morning he started at [facility] called him and told him he has MRSA GEN: Denies fever, chills or malaise HEENT: Denies headache blurriness, or dysphagia RESP: Denies SOB or cough CV: Denies chest pain or palpitations GI: Denies Nausea, vomiting, diarrhea or constipation Reviewed current in hospital medications with modifications see orders Reviewed Routine labs - Exam Vitals: Temp Pulse Resp BP Pulse Ox 97.4 F L 55 18 111/57 98 06/09/19 06:26 06/09/19 06:26 06/09/19 06:26 06/09/19 06:26 06/09/19 06:26 Exam: GEN: NAD, A&O x 3 SKIN: [place] warm acyanotic not jaundice HEART: RRR, no murmurs LUNGS: CTA no wheeze or crackles, overall non labored ABDOMEN; Soft, non tender or distended, BS x 4 normactive EXT: No LE edema, Pedal pulses 1+, radial pulses 2+, dressing overlying bilateral upper extremity digits clean dry and intact with no serosanguineous stains PSYCH: Mood depressed/irritable and affect flat - Assessment and Plan (1) Osteomyelitis of finger Current Visit: Yes Status: Chronic Assessment and Plan: Patient claims today that [facility] called him to notify him that he has MRSA. He is currently on Vancomycin, infectious disease team is following, and per consult note, have not decided on central line. Overall given his history of marijuana use is high risk for IV drug use such not considered an ideal candidate for any centrally inserted catheter. We will place patient on MRSA precaution. s/p I&D and debridement post op day 2. He is Buerger's disease just put his him at increased risk for digital ischemia. He continues to smoke marijuana daily (2) Buergers disease Current Visit: Yes Status: Acute Assessment and Plan: Patient notified primary team that he has Buerger's disease, this information was not verified. 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 He was seen by the vascular team recommended noninvasive workup. Educated patient's on Buerger's disease, highlighting the complications of continued marijuana use including multiple amputation and appears to have good understanding or comprehension of our discussion however does not seem phased about his disease condition and would likely not discontinue marijuana use (3) Marijuana smoker, continuous Current Visit: Yes Status: Acute Assessment and Plan: Continue to encourage cessation (4) Extremity pain Current Visit: No Status: Acute Assessment and Plan: Stated patient is tolerable currently denies any pain Secondary to osteomyelitis, complicated by his Buerger's disease, ideal treatment for his pain is cessation of marijuana use narcotics alone would not resolve his pain (5) FRANCISCO (generalized anxiety disorder) Current Visit: No Status: Acute Assessment and Plan: Continue clonazepam likely worsened by his continued marijuana use, suspect underlying psychiatric illness, need outpatient follow through, we will defer to his primary care physician DVT Prophylaxis: SCDs intermittently, discussed with patient to stay ambulatory - Time Spent with Patient Total time spent is greater than 50% in coordination of care (as documented) at patient's floor/unit and/or counseling patient: Internal Medicine: Result - Labs CBC & Chem 7: 06/09/19 03:27 06/09/19 03:27 Labs: Short CBC 06/09/19 Range/Units 03:27 WBC 6.0 (4.3-11.1) K/mcL Hgb 10.9 L (12.9-16.9) g/dL Hct 34.6 L (37.5-50.1) % Plt Count 201 (140-400) K/mcL Neutrophils # 2.6 (1.6-8.9) K/mcL BMP 06/09/19 03:27 Sodium 139 Potassium 4.0 Chloride 104 Carbon Dioxide 31 H BUN 15 Creatinine 0.91 Glucose 86 Calcium 8.7 Consult Discharge Plan - Plan Referrals: NONE,PCP [Primary Care Provider] - (4) Extremity pain Qualifiers: Extremity pain location: unspecified extremity Qualified Code(s): M79.609 - Pain in unspecified limb
[2019-06-09] MEDS ORDERED: 0.9 % Sodium Chloride 1,000 ML ONE (22:11)
--- NOTE | 2019-06-09 23:13 | Infectious Disease Progress No ---
ID Progress Note Date of Encounter: 06/09/19 Time of Encounter: 23:10 - Subjective Subjective: Patient seen and examined. Laying in bed. No acute distress. Denies any BOGGS. No chest pain no SOB, no abdominal pain no diarrhea no urinary symptoms VS noted labs reviewed cultures pending - Objective CBC & Chem 7: 06/09/19 03:27 06/09/19 03:27 - Exam Vitals: Temp Pulse Resp BP Pulse Ox 98.9 F 68 16 126/83 100 06/09/19 18:36 06/09/19 18:36 06/09/19 18:36 06/09/19 18:36 06/09/19 18:36 Exam: GENERAL: Laying in bed, appears comfortable. HEAD: Normocephalic atraumatic EYES: PERRLA, EOMI, no conjunctival hemorrhage, sclera anicteric ENT: Mucous membranes moist, no oral thrush NECK: Supple. No meningeal signs. No masses LUNGS: Chest expanding symmetrically. Lungs sounds audible both lung mars. No wheezing, no rhonchi CV: RRR, S1S2, ABDOMEN: Soft, nontender, nondistended. Bowel sounds audible BACK: No CVA tenderness. Normal inspection. No tenderness over the spine. Multiple scars in the rib cage in the back. He tells me there from [place] EXTREMITY: Adequate perfusion lower extremities. Bilateral hands are surgically wrapped. Also has a [place] drain left thumb. SKIN: Normal color. No rash. NEURO: Awake alert oriented 3. No obvious focal deficit PSYCH: Calm and appropriate. No agitation. - Assessment and Plan (1) Osteomyelitis of finger Current Visit: Yes Status: Chronic Previous osteomyelitis August 2018 with MSSA treated with 6 weeks of cefazolin MRI 06/07/2019 of the right hand reveals bone marrow edema throughout the third middle and distal phalanges with moderate decreased T1 signal compatible with osteomyelitis s/p I&D irrigation, debridement of the right long finger and left thumb including skin, subcutaneous tissue, and bone 06/07/[address] Bender intra op cultures pending previous cultures from 06/03/2019 positive for MSSA, Citrobacter freundii, Enterobacter and Alcaligenes spp; please see susecptibilty report SNOMED Code(s): 39763469 (2) FRANCISCO (generalized anxiety disorder) Current Visit: No Status: Acute SNOMED Code(s): 44144301 (3) Marijuana smoker, continuous Current Visit: Yes Status: Acute SNOMED Code(s): 46274294 (4) Buergers disease Current Visit: Yes Status: Acute SNOMED Code(s): 21285927 - Recommendations Recommendations: await cultures to finalize continue vancomycin and zosyn for now until cultures finalize monitor vanc trough with goal around [address] pic[address] line on wednesday will need 6 weeks of antibiotics will tailor antibiotics accoding to culture results. monitor labs and kidney function closely Consult Discharge Plan - Plan Referrals: NONE,PCP [Primary Care Provider] -
[2019-06-10 03:15] LABS: Basophils # 0.1 K/mcL (0.0-0.2); Basophils % 0.8 %; Eosinophils # 0.2 K/mcL (0.0-0.6); Eosinophils % 3.3 %; Hematocrit 35.8 % (37.5-50.1); Immature Granulocytes % 0.2 % (0-4); Immature Platelets 3.7 % (1.1-6.1); Lymphocytes # 2.3 K/mcL (0.6-4.6); Lymphocytes % 38.1 %; Mean Corpuscular HGB Conc 30.7 g/dL (31.6-35.5); Mean Corpuscular Hemoglobin 26.4 pg (28.0-33.3); Mean Corpuscular Volume 86.1 fL (83.0-100.0); Monocytes # 0.3 K/mcL (0.0-1.3); Monocytes % 5.4 %; Neutrophils # 3.2 K/mcL (1.6-8.9); Platelet Count 190 K/mcL (140-400); Red Blood Count 4.16 M/mcL (4.19-5.50); Red Cell Distribution Width 14.3 % (11.5-14.5); Segmented Neutrophils % 52.2 %; White Blood Count 6.1 K/mcL (4.3-11.1)
[2019-06-10] MEDS: Piperacillin/Tazobactam 3.375 GM in 0.9 % Sodium Chloride Mini Bag 100 ML IVPB SCH ×2 (05:29→12:12)
--- NOTE | 2019-06-10 06:47 | Orthopedics Progress Note ---
Date of Encounter: 06/10/19 Time of Encounter: 06:46 Subjective Interval history: Patient resting comfortably, with IV antibiotics as per surgeons protocol, no acute issues Objective Vital signs: Vital Signs Temp Pulse Resp BP Pulse Ox 06/10/19 00:38 97.9 F 66 17 128/80 99 06/09/19 18:36 98.9 F 68 16 126/83 100 06/09/19 15:21 97.8 F 61 18 113/75 100 06/09/19 10:55 98.0 F 78 18 106/59 100 Intake and Output 06/09/19 06/09/19 06/10/19 15:59 23:59 07:59 Intake Total 490 / 790 100 / 790 500 / 500 Balance 490 / 790 100 / 790 500 / 500 Intake: IV Fluids 250 / 550 100 / 550 100 / 100 Zosyn 3.375 GM In 0.9 % Sodium 100 / 300 100 / 100 Chloride (Mini-Bag +) 100 ML @ 25 mls/hr IVPB Q8H [facility] Rx#: [id number] Vancocin 1,000 MG In 0.9 % 250 / 250 Sodium Chloride 250 ML @ 167 mls/hr IVPB Q12H [facility] Rx#: [id number] Oral 240 / 240 400 / 400 Other: Meal Breakfast Percent of Meal Consumed 100% # Voids 1 2 Weight 68.1 kg Patient Weight 06/10/19 23:59 Weight 68.1 kg - Labs CBC & BMP: 06/10/19 02:45 06/09/19 03:27 Labs: Abnormal lab results RBC 4.16 M/mcL (4.19-5.50) L 06/10/19 02:45 Hgb 11.0 g/dL (12.9-16.9) L 06/10/19 02:45 Hct 35.8 % (37.5-50.1) L 06/10/19 02:45 MCH 26.4 pg (28.0-33.3) L 06/10/19 02:45 MCHC 30.7 g/dL (31.6-35.5) L 06/10/19 02:45 ESR 22 mm/hr (0-10) H 06/09/19 08:16 Carbon Dioxide 31 mEq/L (23-29) H 06/09/19 03:27 Consult Discharge Plan - Plan Referrals: NONE,PCP [Primary Care Provider] -
[2019-06-10 07:16] LABS: BUN/Creatinine Ratio 16 (6-26); Blood Urea Nitrogen 15 mg/dL (6-20); Calcium 8.7 mg/dL (8.6-10.3); Carbon Dioxide 24 mEq/L (23-29); Chloride 104 mEq/L (98-107); Glucose 95 mg/dL (70-105); Magnesium 1.9 mg/dL (1.6-2.6); Osmolality,Calculated 293 (280-300); Sodium 141 mEq/L (136-145); eGFR For African Americans > 60 (> 60); eGFR For Non-African Americans > 60 (> 60)
[2019-06-10] MEDS: Gabapentin 300 MG CAPSULE PO SCH ×2 (10:11→15:19)
[2019-06-10] MEDS: Sennosides 8.6 MG TABLET PO SCH (10:11)
[2019-06-10] MEDS: clonazePAM 1 MG TABLET PO SCH (10:11)
--- NOTE | 2019-06-10 10:36 | Internal Med Progress Note ---
Hospitalist Progress Note - Encounter Date of Encounter: 06/10/19 Time of Encounter: 10:32 - Subjective Interval History: Mr Naranjo is stating that he needs to be fed, he reports been sleepy due to multiple awakenings throughout the night. Preliminary report of his upper extremity Doppler appears to be unremarkable GEN: Denies fever, chills or malaise HEENT: Denies headache blurriness, or dysphagia RESP: Denies SOB or cough CV: Denies chest pain or palpitations GI: Denies Nausea, vomiting, diarrhea or constipation Reviewed current in hospital medications with modifications see orders Reviewed Routine labs - Exam Vitals: Temp Pulse Resp BP Pulse Ox 97.9 F 87 18 99/56 98 06/10/19 06:59 06/10/19 06:59 06/10/19 06:59 06/10/19 06:59 06/10/19 06:59 Exam: GEN: NAD, A&O x 3 SKIN: [place] warm acyanotic not jaundice HEART: RRR, no murmurs LUNGS: CTA no wheeze or crackles, overall non labored ABDOMEN; Soft, non tender or distended, BS x 4 normactive EXT: No LE edema, Pedal pulses 1+, radial pulses 2+, dressing overlying bilateral upper extremity digits clean dry and intact with no serosanguineous stains PSYCH: Mood and affect is appropriate - Assessment and Plan (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 We appreciate ID input Patient claims today that [facility] called him to notify him that he has MRSA. He is currently on Vancomycin, infectious disease team is following, and per consult note, have not decided on central line. Overall given his history of marijuana use is high risk for IV drug use such not considered an ideal candidate for any centrally inserted catheter. We will place patient on MRSA precaution. s/p I&D and debridement post op day 2. He is Buerger's disease just put his him at increased risk for digital ischemia. He continues to smoke marijuana daily (2) Buergers disease Current Visit: Yes Status: Acute Assessment and Plan: Patient notified primary team that he has Buerger's disease, this information was not verified. He is planned follow-up with [facility] operator out patient. He was seen by the vascular team recommended noninvasive workup. Educated patient's on Buerger's disease, highlighting the complications of continued marijuana use including multiple amputation and appears to have good understanding or comprehension of our discussion however does not seem phased about his disease condition and would likely not discontinue marijuana use (3) Marijuana smoker, continuous Current Visit: Yes Status: Acute Assessment and Plan: Continue to encourage cessation (4) Extremity pain Current Visit: Yes Status: Acute Assessment and Plan: Stated patient is tolerable currently denies any pain Secondary to osteomyelitis, complicated by his Buerger's disease, ideal treatment for his pain is cessation of marijuana use narcotics alone would not resolve his pain (5) FRANCISCO (generalized anxiety disorder) Current Visit: No Status: Acute Assessment and Plan: Continue clonazepam likely worsened by his continued marijuana use, suspect underlying psychiatric illness, need outpatient follow through, we will defer to his primary care physician DVT Prophylaxis: SCDs intermittently, discussed with patient to stay ambulatory - Time Spent with Patient Total time spent is greater than 50% in coordination of care (as documented) at patient's floor/unit and/or counseling patient: Internal Medicine: Result - Labs CBC & Chem 7: 06/10/19 02:45 06/10/19 02:45 Labs: Short CBC 06/10/19 Range/Units 02:45 WBC 6.1 (4.3-11.1) K/mcL Hgb 11.0 L (12.9-16.9) g/dL Hct 35.8 L (37.5-50.1) % Plt Count 190 (140-400) K/mcL Neutrophils # 3.2 (1.6-8.9) K/mcL BMP 06/10/19 02:45 Sodium 141 Potassium 4.0 Chloride 104 Carbon Dioxide 24 BUN 15 Creatinine 0.91 Glucose 95 Calcium 8.7 Consult Discharge Plan - Plan Referrals: NONE,PCP [Primary Care Provider] - (4) Extremity pain Qualifiers: Extremity pain location: unspecified extremity Qualified Code(s): M79.609 - Pain in unspecified limb
[2019-06-10] MEDS ORDERED: 0.9 % Sodium Chloride 1,000 ML IVC ONE (12:21)
[2019-06-10 14:49] VITALS: BP 119/79
[2019-06-10] MEDS ORDERED: hydrOXYzine pamoate 25 MG CAPSULE PO PRN (17:20)
[2019-06-10] MEDS ORDERED: Aminoglycoside Consult 1 EACH MC ONE (21:12)
== END 2019-06-10 21:13 | disposition left against medical advice (07) | DRG 540 ==
LOC: 3NENU 02:05 → EMEROOARM 02:05 → SUATTDRO 04:36 → 3NENU 05:18
PROVIDERS: ADMIT Internal Medicine Nephrology; ATTEND Pharmacist

== ENCOUNTER 2019-06-12 08:24 | Observation (INO) ==
[2019-06-12] MEDS ORDERED: Naloxone 0.4 MG/ML INJ IVP PRN (09:22)
[2019-06-12] MEDS ORDERED: Ondansetron 4 MG/2 ML VIAL IVP PRN (09:22)
[2019-06-12] MEDS ORDERED: *HR* OxyCODONE Immed Rel 5 MG TABLET PO PRN (09:22)
[2019-06-12] MEDS ORDERED: *HR* HYDROcodone/Acet 5/325 mg TABLET PO PRN (09:22)
[2019-06-12] MEDS ORDERED: Acetaminophen 325 MG TABLET PO PRN (09:22)
[2019-06-12 09:57] LABS: Basophils % 0.8 %; Eosinophils # 0.3 K/mcL (0.0-0.6); Eosinophils % 5.2 %; Hematocrit 37.5 % (37.5-50.1); Hemoglobin 11.7 g/dL (12.9-16.9); Immature Granulocytes % 0.2 % (0-4); Lymphocytes % 39.9 %; Mean Corpuscular HGB Conc 31.2 g/dL (31.6-35.5); Mean Corpuscular Hemoglobin 26.8 pg (28.0-33.3); Mean Corpuscular Volume 85.8 fL (83.0-100.0); Mean Platelet Volume 10.2 fL (9.4-12.4); Monocytes # 0.4 K/mcL (0.0-1.3); Monocytes % 7.3 %; Neutrophils # 2.4 K/mcL (1.6-8.9); Platelet Count 193 K/mcL (140-400); Red Blood Count 4.37 M/mcL (4.19-5.50); Red Cell Distribution Width 14.5 % (11.5-14.5); Segmented Neutrophils % 46.6 %
[2019-06-12 10:04] LABS: INR 1.1; Prothrombin Time 12.5 Seconds (9.4-12.1)
[2019-06-12 10:07] LABS: Activated Partial Thrombo Time 32.6 Seconds (26.0-36.0)
[2019-06-12 10:16] LABS: Alanine Aminotransferase 11 Units/L (7-52); Albumin 3.6 g/dL (3.5-5.7); Albumin/Globulin Ratio 1.4 (1.1-2.2); Alkaline Phosphatase 97 Units/L (34-104); Aspartate Amino Transferase 15 Units/L (13-39); BUN/Creatinine Ratio 22 (6-26); Bilirubin,Total 0.4 mg/dL (0.3-1.0); Blood Urea Nitrogen 21 mg/dL (6-20); Calcium 8.7 mg/dL (8.6-10.3); Carbon Dioxide 29 mEq/L (23-29); Chloride 107 mEq/L (98-107); Globulin 2.6 g/dL (2.4-3.5); Glucose 75 mg/dL (70-105); Osmolality,Calculated 290 (280-300); Potassium 3.9 mEq/L (3.5-5.1); Sodium 139 mEq/L (136-145); Total Protein 6.2 g/dL (6.4-8.9); eGFR For African Americans > 60 (> 60); eGFR For Non-African Americans > 60 (> 60)
[2019-06-12] MEDS ORDERED: Psyllium 1 PACKET POWD.PACK PO PRN (11:12)
[2019-06-12] MEDS ORDERED: clonazePAM 0.5 MG TABLET PO PRN ×2 (11:12→11:28)
[2019-06-12] MEDS: Piperacillin/Tazobactam 3.375 GM in 0.9 % Sodium Chloride Mini Bag 100 ML IVPB SCH ×2 (11:25→18:25)
[2019-06-12 19:01] VITALS: BP 122/76
[2019-06-12] MEDS ORDERED: Sennosides 8.6 MG TABLET PO SCH (21:00)
[2019-06-12] MEDS ORDERED: Aminoglycoside Consult 1 EACH MC ONE (21:03)
== END 2019-06-12 21:04 | disposition left against medical advice (07) ==
LOC: EMEROOARM 08:24 → 3NENU 08:24
PROVIDERS: ADMIT Internal Medicine; ATTEND Internal Medicine

== ENCOUNTER 2019-06-14 07:59 | Observation (INO) ==
--- NOTE | 2019-06-14 08:40 | Emergency Department Note ---
Disposition Clinical Impression: Osteomyelitis Qualifiers: Osteomyelitis type: unspecified type Osteomyelitis location: hand Laterality: unspecified laterality Qualified Code(s): M86.9 - Osteomyelitis, unspecified Disposition: Admitted As Inpatient Referrals: NONE,PCP [Primary Care Provider] - Forms: ED Satisfaction Letter, Work/School Release Time of Disposition: 11:01 General Adult HPI - General Chief complaint: ED General Medical Stated complaint: "infection in finger" Time Seen by Provider: 06/14/19 08:10 Source: patient Mode of arrival: ambulatory Limitations: no limitations Nursing Notes Reviewed: Yes Vital Signs Reviewed: Yes - History of Present Illness HPI Narrative: 38M with recent surgery on his fingers who left AMA from the hospital is r eturning to the ED after he was told he needs to have a midline placed for IV antibiotics. He has been diagnosed with osteomyelitis and has been admitted and signed out 4 times in the last 4 days. He has seen Dr. Wilkinson as an inpatient. He denies any symptoms at this time. Pain Scale: 7 - Related Data Home Medications Medication Instructions Recorded Confirmed No Known Home Drugs 06/12/19 06/12/19 Allergies Allergy/AdvReac Type Severity Reaction Status Date / Time No Known Allergies Allergy Verified 06/14/19 08:02 All systems ED: reviewed and negative except as stated. Review of Systems: As Per HPI Constitutional: Denies: fever, chills, weakness Cardiovascular: Denies: chest pain, palpitations, dyspnea on exertion Respiratory: Denies: cough, dyspnea, wheezes Gastrointestinal: Denies: abdominal pain, nausea, vomiting Genitourinary: Denies: dysuria Musculoskeletal: Denies: back pain Neurological: Denies: headache Endocrine: Denies: fatigue Past Medical History - Past Medical History Attestation: Yes The following information was validated with the patient. Source: patient Medical history: Reports: arthritis, DVT, GERD, GI bleed, hyperlipidemia, hypertension, liver disease, thyroid disease, other Surgical history: Reports: cholecystectomy, orthopedic, other, other Psychiatric history: Reports: anxiety - Social History Smoking Status: Former smoker Smokeless Tobacco Status: No Alcohol use: Reports: none Drug use: Reports: marijuana Physical Exam - General Limitations: no limitations General appearance: alert, in no apparent distress - Head Head exam: atraumatic, normocephalic - Eye Eye exam: Present: normal appearance, EOMI - Chest Chest inspection: Present: normal inspection. Absent: tenderness, rash - Respiratory Respiratory exam: Present: normal lung sounds bilaterally. Absent: wheezes - Cardiovascular Cardiovascular exam: Present: regular rate, normal rhythm - Abdominal Exam Abdominal exam: Present: soft, Non-Tender. Absent: distention, guarding, rebound, rigidity - Extremities Exam Extremities exam: Present: other (right index finger distal amputation, right middle finger and left thumb with recent surgery) - Neurological Exam Neurological exam: Present: alert, oriented X3 - Psychiatric Psychiatric exam: Present: normal affect, normal mood - Skin Skin exam: Present: warm, dry, intact Course Vital Signs Temperature 97.7 F 06/14/19 08:02 Pulse Rate 67 06/14/19 08:02 Respiratory Rate 20 06/14/19 08:02 Blood Pressure 107/67 06/14/19 08:02 O2 Sat by Pulse Oximetry 97 06/14/19 08:02 Temperature 97.7 F 06/14/19 08:02 Pulse Rate 67 06/14/19 08:02 Respiratory Rate 20 06/14/19 08:02 Blood Pressure 107/67 06/14/19 08:02 O2 Sat by Pulse Oximetry 97 06/14/19 08:02 Oxygen Delivery Oxygen Delivery Room Air Medical Decision Making - MDM Narrative Medical decision making narrative: Patient presents needing IV antibiotics for osteomyelitis of his left thumb and right middle finger. Spoke with Dr. Wilkinson who states the patient is in need of IV antibiotics and with his noncompliance history he should be admitted to the hospital as midline would not be a good option for this patient. I spoke with the patient and he is agreeable with admission and states he will stay for at [facility] few days for IV antibiotics before they can formulate an outpatient regimen for him. We will obtain basic labs and start the patient on Rocephin, vancomycin and Flagyl per recommendations of Dr. Wilkinson. 1046 - pt has no significant lab abnormalities. Hospitalist has been paged for admission. 1100 - pt has been accepted by Dr. Ovalle - Medical Records Medical records reviewed: Yes I reviewed the patient's medical records. - Lab Data Lab results reviewed: Yes I reviewed the patient's lab results. Result diagrams: 06/14/19 09:41 06/14/19 09:41 Lab Results 06/14/19 06/14/19 Range/Units 09:41 09:41 WBC 6.4 (4.3-11.1) K/mcL RBC 4.23 (4.19-5.50) M/mcL Hgb 11.0 L (12.9-16.9) g/dL Hct 35.8 L (37.5-50.1) % MCV 84.6 (83.0-100.0) fL MCH 26.0 L (28.0-33.3) pg MCHC 30.7 L (31.6-35.5) g/dL RDW 14.8 H (11.5-14.5) % Plt Count 205 (140-400) K/mcL MPV 10.8 (9.4-12.4) fL Immature Gran % 0.3 (0-4) % Seg Neutrophils % 55.0 % Lymphocytes % 33.8 % Monocytes % 5.6 % Eosinophils % 4.5 % Basophils % 0.8 % Neutrophils # 3.5 (1.6-8.9) K/mcL Lymphocytes # 2.2 (0.6-4.6) K/mcL Monocytes # 0.4 (0.0-1.3) K/mcL Eosinophils # 0.3 (0.0-0.6) K/mcL Basophils # 0.1 (0.0-0.2) K/mcL Sodium 140 (136-145) mEq/L Potassium 3.9 (3.5-5.1) mEq/L Chloride 105 (98-107) mEq/L Carbon Dioxide 28 (23-29) mEq/L BUN 17 (6-20) mg/dL Creatinine 0.86 (0.70-1.30) mg/dL Est GFR ( Amer) > 60 (> 60) Est GFR (Non-Af Amer) > 60 (> 60) BUN/Creatinine Ratio 20 (6-26) Glucose 116 H (70-105) mg/dL Calculated Osmolality 293 (280-300) Calcium 8.7 (8.6-10.3) mg/dL Attestation Statement - Attestation Attestation: I, Josue Finn DO, examined this patient [id number] and my medical decision-making was reviewed with Pao Rich DO, Resident Physician. I agree with the documented findings, disposition and treatment plan as described except to the extent set forth below. I personally supervised and was present for the reyes/critical portions of the procedures completed by the resident docum ented below. Please see my progress notes for details.
[2019-06-14] MEDS ORDERED: MetroNIDAZOLE 500 MG/100 ML 500 MG/100 ML BAG IVPB ONE (09:14)
[2019-06-14] MEDS ORDERED: cefTRIAXone 1,000 MG in 0.9 % Sodium Chloride Mini Bag 100 ML IVPB ONE (09:14)
--- NOTE | 2019-06-14 09:54 | Emergency Department Note ---
Disposition Clinical Impression: Osteomyelitis Qualifiers: Osteomyelitis type: unspecified type Osteomyelitis location: hand Laterality: unspecified laterality Qualified Code(s): M86.9 - Osteomyelitis, unspecified Disposition: Admitted As Inpatient Condition: Fair Referrals: NONE,PCP [Primary Care Provider] - Forms: ED Satisfaction Letter, Work/School Release Time of Disposition: 11:12 General Adult HPI - General Chief complaint: ED General Medical Stated complaint: "infection in finger" Time Seen by Provider: 06/14/19 08:10 Source: patient Mode of arrival: ambulatory Limitations: no limitations - History of Present Illness Pain Scale: 7 - Related Data Home Medications Medication Instructions Recorded Confirmed No Known Home Drugs 06/12/19 06/12/19 Allergies Allergy/AdvReac Type Severity Reaction Status Date / Time No Known Allergies Allergy Verified 06/14/19 08:02 Constitutional: Denies: fever, chills, weakness Cardiovascular: Denies: chest pain, palpitations, dyspnea on exertion Respiratory: Denies: cough, dyspnea, wheezes Gastrointestinal: Denies: abdominal pain, nausea, vomiting Genitourinary: Denies: dysuria Musculoskeletal: Denies: back pain Neurological: Denies: headache Endocrine: Denies: fatigue Past Medical History - Past Medical History Medical history: Reports: arthritis, DVT, GERD, GI bleed, hyperlipidemia, hy pertension, liver disease, thyroid disease, other Surgical history: Reports: cholecystectomy, orthopedic, other, other Psychiatric history: Reports: anxiety - Social History Smoking Status: Former smoker Smokeless Tobacco Status: No Alcohol use: Reports: none Drug use: Reports: marijuana Physical Exam - General Limitations: no limitations General appearance: alert, in no apparent distress Course Vital Signs Temperature 97.7 F 06/14/19 08:02 Pulse Rate 67 06/14/19 08:02 Respiratory Rate 20 06/14/19 08:02 Blood Pressure 107/67 06/14/19 08:02 O2 Sat by Pulse Oximetry 97 06/14/19 08:02 Temperature 97.7 F 06/14/19 08:02 Pulse Rate 67 06/14/19 08:02 Respiratory Rate 20 06/14/19 08:02 Blood Pressure 107/67 06/14/19 08:02 O2 Sat by Pulse Oximetry 97 06/14/19 08:02 Oxygen Delivery Oxygen Delivery Room Air Medical Decision Making - Lab Data Result diagrams: 06/14/19 09:41 06/14/19 09:41 Lab Results 06/14/19 06/14/19 Range/Units 09:41 09:41 WBC 6.4 (4.3-11.1) K/mcL RBC 4.23 (4.19-5.50) M/mcL Hgb 11.0 L (12.9-16.9) g/dL Hct 35.8 L (37.5-50.1) % MCV 84.6 (83.0-100.0) fL MCH 26.0 L (28.0-33.3) pg MCHC 30.7 L (31.6-35.5) g/dL RDW 14.8 H (11.5-14.5) % Plt Count 205 (140-400) K/mcL MPV 10.8 (9.4-12.4) fL Immature Gran % 0.3 (0-4) % Seg Neutrophils % 55.0 % Lymphocytes % 33.8 % Monocytes % 5.6 % Eosinophils % 4.5 % Basophils % 0.8 % Neutrophils # 3.5 (1.6-8.9) K/mcL Lymphocytes # 2.2 (0.6-4.6) K/mcL Monocytes # 0.4 (0.0-1.3) K/mcL Eosinophils # 0.3 (0.0-0.6) K/mcL Basophils # 0.1 (0.0-0.2) K/mcL Sodium 140 (136-145) mEq/L Potassium 3.9 (3.5-5.1) mEq/L Chloride 105 (98-107) mEq/L Carbon Dioxide 28 (23-29) mEq/L BUN 17 (6-20) mg/dL Creatinine 0.86 (0.70-1.30) mg/dL Est GFR ( Amer) > 60 (> 60) Est GFR (Non-Af Amer) > 60 (> 60) BUN/Creatinine Ratio 20 (6-26) Glucose 116 H (70-105) mg/dL Calculated Osmolality 293 (280-300) Calcium 8.7 (8.6-10.3) mg/dL Attestation Statement - Attestation Attestation: I, Josue Finn DO, examined this patient [id number] and my medical decision-making was reviewed with Pao Hilario DO, Resident Physician. I agree with the documented findings, disposition and treatment plan as described except to the extent set forth below. I personally supervised and was present for the reyes/critical portions of the procedures completed by the resident documented below. Please see my progress notes for details. 38-year-old male presents emergency room for evaluation of infection to his h ands and cellulitis. Patient is left the hospital AMA approximately 4 times the last one week. Patient is denying any fevers or chills. He has not had any nausea vomiting or diarrhea. Denies any headache or vision change. Patient denies any other symptoms or complaints. Patient had his bacteria profile reviewed and the sensitivities reviewed. There are multiple resistant bacteria noted and patient does not have any appropriate oral antibiotic regiment that can be completed in the outpatient setting. Patient was discussed with the on- call infectious disease provider Dr. horowitz prior to completing the evaluation. Recommendation was to requested the patient be admitted and not sign out AMA. If he does not want to be admitted patient artery has prescriptions for the best antibiotic regiment available at home. Vital signs reviewed and are stable. Patient is alert he is answering questions appropriately. Hands appear to be stable with chronic wounds on the fingertips but no other signs of redness warmth or skin deterioration proximal to the affected fingers at this time. Lungs are clear heart is regular. Abdomen is soft. Otherwise extremities and neurovascular evaluation are benign. Patient and I had a lengthy discussion at the bedside and at this point, he is going to accommodate an admission. Patient will be able to start on IV antibiotics and blood cultures CBC chemistry collected. Disposition will be discussed after the workup is established and the hospitals will be paged. See detailed documentation the physical exam, medical intervention, medical decision-making and disposition in the resident physician's note. No critical care applied the patient's treatment course at this time. Consult for infectious disease was placed. 1100 Patient was discussed with the hospitalist Dr. Ovalle. Patient reviewed the case at length. Patient has what appears to be cellulitis secondary to wounds to his hands. Discussion was had about the recommendations from infectious disease as well as the patient's previous AGAINST MEDICAL ADVICE issues. Hospitalist was admitted this time and continue with the management of the patient declares whether or not he is going to stay. Patient will be monitored here in the emergency room until admission process is completed
[2019-06-14 10:26] LABS: BUN/Creatinine Ratio 20 (6-26); Basophils # 0.1 K/mcL (0.0-0.2); Basophils % 0.8 %; Blood Urea Nitrogen 17 mg/dL (6-20); Calcium 8.7 mg/dL (8.6-10.3); Carbon Dioxide 28 mEq/L (23-29); Chloride 105 mEq/L (98-107); Eosinophils # 0.3 K/mcL (0.0-0.6); Eosinophils % 4.5 %; Glucose 116 mg/dL (70-105); Hematocrit 35.8 % (37.5-50.1); Immature Granulocytes % 0.3 % (0-4); Lymphocytes # 2.2 K/mcL (0.6-4.6); Lymphocytes % 33.8 %; Mean Corpuscular HGB Conc 30.7 g/dL (31.6-35.5); Mean Corpuscular Volume 84.6 fL (83.0-100.0); Mean Platelet Volume 10.8 fL (9.4-12.4); Monocytes # 0.4 K/mcL (0.0-1.3); Monocytes % 5.6 %; Neutrophils # 3.5 K/mcL (1.6-8.9); Osmolality,Calculated 293 (280-300); Platelet Count 205 K/mcL (140-400); Potassium 3.9 mEq/L (3.5-5.1); Red Blood Count 4.23 M/mcL (4.19-5.50); Red Cell Distribution Width 14.8 % (11.5-14.5); Sodium 140 mEq/L (136-145); White Blood Count 6.4 K/mcL (4.3-11.1); eGFR For African Americans > 60 (> 60); eGFR For Non-African Americans > 60 (> 60)
[2019-06-14] MEDS ORDERED: traMADol 50 MG TABLET PO PRN (16:17)
[2019-06-14] MEDS ORDERED: MOM Conc 10 ML UD.LIQ PO PRN (16:17)
[2019-06-14] MEDS ORDERED: Naloxone 0.4 MG/ML INJ IVP PRN (16:17)
[2019-06-14] MEDS ORDERED: Mag Hydrox/Al Hydrox/Simeth 30 ML UDC PO PRN (16:17)
[2019-06-14] MEDS ORDERED: *HR* Promethazine 25 MG/ML VIAL IVP PRN (16:17)
[2019-06-14] MEDS ORDERED: Ondansetron 4 MG/2 ML VIAL IVP PRN (16:17)
[2019-06-14] MEDS ORDERED: Acetaminophen 325 MG TABLET PO PRN (16:17)
--- NOTE | 2019-06-14 16:28 | Internal Med History&Physical ---
Date of Encounter: 06/14/19 Time of Encounter: 16:27 Internal Medicine - H&P: HPI Admitted From: Home Plans for Post Hospital Care: Home History of present illness: Mr. Naranjo is a 38 year old male 38-year-old male presents emergency room for evaluation of infection to his hands. Patient left the hospital AMA approximately 4 times the last one week. He burned his hands in the work a week ago, then developed infection. Wound culture and surgical biopsy of the left hand on the first admission grew multiple organisms including enterococcus, sta phylococcus aureus, providencia. He was started on IV antibiotics. He stated that he is a single father, his medical insurance was also messed up recently, those are reasons he has leaven the hospital AMA multiple times in the past week. MRI of right hand was performed a week ago which showed diffuse subcutaneous edema of the third digit compatible with cellulitis, bone marrow edema of the third middle and distal phalanges, suspicious for early osteomyelitis, and mild third flexor tenosynovitis. He was started on IV Zosyn and vancomycin. There was a plan for PICC line placement and home IV antibiotics infusion. However, patient left hospital AMA again 2 days ago, no IV or oral antibiotics were prescribed at that time. He came back again today because he wanted to complete the IV antibiotic treatment. He received IV vancomycin, metronidazole, and Rocephin at the ED. Infectious disease was consulted and recommended to admit the patient. CODE STATUS will be full cold. Past Med Surg Social Fam HX - Past Medical History Medical history: arthritis, DVT, GERD, GI bleed, hyperlipidemia, hypertension, liver disease, thyroid disease, other Additional medical history: IBS, RAYNAUDS Psychiatric history: anxiety - Past Surgical History Surgical History: cholecystectomy, orthopedic, other, other Additional surgical history: Sphincterotomy, left knee sx x 5, partial left thumb amputation. Right forefinger partially amputated - Social History Smoking Status: Former smoker Smokeless Tobacco Status: No Alcohol use: none Drug use: marijuana - Family History Mother Adopted: No Living Status: Cause of : cancer Hx Family Cardiac Disorders: No Hx Family Respiratory Disorders: No Hx Family Cancer: Yes Hx Family GI Disorders: No Hx Family Endocrine Disorder: No Hx Family Neuromuscular Disorders: No Hx Family Neurologic Disorders: No Hx Family HEENT Disorders: No Hx Family Autoimmune Disorders: No Internal Medicine - H&P: Meds No Known Home Drugs 06/12/19 [History] Allergy/AdvReac Type Severity Reaction Status Date / Time No Known Allergies Allergy Verified 06/14/19 08:02 All Systems PM: A 10-system review of systems was performed and is negative for pertinent findings except as documented above in the HPI. Review of systems: REVIEW OF SYSTEMS: CONSTITUTIONAL: No weight loss, fever, chills, weakness or fatigue. HEENT: Eyes: No visual loss, blurred vision, double vision or yellow sclerae. Ears, Nose, Throat: No hearing loss, sneezing, congestion, runny nose or sore throat. SKIN: see HPI. CARDIOVASCULAR: No chest pain, chest pressure or chest discomfort. No palpitations or edema. RESPIRATORY: No shortness of breath, cough or sputum. GASTROINTESTINAL: No anorexia, nausea, vomiting or diarrhea. No abdominal pain or blood. GENITOURINARY: No dysuria, urgency, or frequency. NEUROLOGICAL: No headache, dizziness, syncope, paralysis, ataxia, numbness or tingling in the extremities. No change in bowel or bladder control. MUSCULOSKELETAL: see HPI. HEMATOLOGIC: No anemia, bleeding or bruising. LYMPHATICS: No enlarged nodes. No history of splenectomy. PSYCHIATRIC: No history of depression or anxiety. ENDOCRINOLOGIC: No reports of sweating, cold or heat intolerance. No polyuria or polydipsia. - Constitutional Vitals: Temp Pulse Resp BP Pulse Ox 97.7 F 65 15 115/78 100 06/14/19 12:25 06/14/19 12:25 06/14/19 12:25 06/14/19 12:25 06/14/19 12:25 General appearance: Present: A&O X 3 Exam: PHYSICAL EXAMINATION: GENERAL APPEARANCE: The patient is alert, oriented and in no acute distress. HEENT: Head is normocephalic. The sinuses are nontender. Pupils are equal and reactive. The nares are patent. Oropharynx clear without lesions. NECK: Supple without lymphadenopathy. HEART: Regular rate and rhythm. LUNGS: No crackles or wheezes are heard. ABDOMEN: Soft, nontender, nondistended with good bowel sounds heard. Inguinal area is normal. EXTREMITIES: right third digit and left thumb covered with dressing. NEUROLOGICAL: Gross nonfocal. SKIN: Warm and dry without any rash. Internal Med - H&P Results - Labs CBC & Chem 7: 06/14/19 09:41 06/14/19 09:41 Labs: Short CBC 06/14/19 Range/Units 09:41 WBC 6.4 (4.3-11.1) K/mcL Hgb 11.0 L (12.9-16.9) g/dL Hct 35.8 L (37.5-50.1) % Plt Count 205 (140-400) K/mcL Neutrophils # 3.5 (1.6-8.9) K/mcL BMP 06/14/19 09:41 Sodium 140 Potassium 3.9 Chloride 105 Carbon Dioxide 28 BUN 17 Creatinine 0.86 Glucose 116 H Calcium 8.7 - Assessment and Plan (1) Cellulitis of left upper extremity Current Visit: Yes Status: Acute Assessment and plan: Wound culture and surgical biopsy of right hand performed 1 week ago grew multiple organisms including enterococcus, Staphylococcus aureus, and Providencia, sensitive to vancomycin and the Rocephin. She received IV vancomycin, metronidazole, and ceftriaxone at the ED. We will continue vancomycin and Rocephin. ID consulted, appreciate help. Wound care consult. (2) Osteomyelitis Current Visit: Yes Status: Acute Assessment and plan: Management same as above, patient may need a PICC line and outpatient IV infusion upon discharge. Qualifiers: Osteomyelitis type: unspecified type Osteomyelitis location: hand Laterality: right Qualified Code(s): M86.9 - Osteomyelitis, unspecified (3) DVT prophylaxis Current Visit: Yes Status: Acute Assessment and plan: Heparin subcutaneous. - Time Spent With Patient Total time spent is greater than 50% in coordination of care (as documented) at patient's floor/unit and/or counseling patient: Greater than 35 minutes
[2019-06-14] MEDS: cefTRIAXone 2,000 MG in Water for inj. (sterile) 20 ML IVP SCH (16:54)
[2019-06-14] MEDS: *HR* Heparin 5,000 UNIT/ML VIAL SQ SCH (17:02)
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
[2019-06-15] MEDS: *HR* Heparin 5,000 UNIT/ML VIAL SQ SCH ×2 (05:52→17:30)
[2019-06-15] MEDS: cefTRIAXone 2,000 MG in Water for inj. (sterile) 20 ML IVP SCH (05:52)
[2019-06-15 06:35] LABS: Basophils % 1.1 %; Eosinophils # 0.2 K/mcL (0.0-0.6); Eosinophils % 6.5 %; Hematocrit 35.2 % (37.5-50.1); Hemoglobin 11.1 g/dL (12.9-16.9); Immature Granulocytes % 0.5 % (0-4); Lymphocytes # 1.6 K/mcL (0.6-4.6); Lymphocytes % 43.3 %; Mean Corpuscular HGB Conc 31.5 g/dL (31.6-35.5); Mean Corpuscular Hemoglobin 26.3 pg (28.0-33.3); Mean Corpuscular Volume 83.4 fL (83.0-100.0); Mean Platelet Volume 10.4 fL (9.4-12.4); Monocytes # 0.2 K/mcL (0.0-1.3); Monocytes % 6.3 %; Neutrophils # 1.6 K/mcL (1.6-8.9); Platelet Count 184 K/mcL (140-400); Red Blood Count 4.22 M/mcL (4.19-5.50); Red Cell Distribution Width 14.6 % (11.5-14.5); Segmented Neutrophils % 42.3 %; White Blood Count 3.7 K/mcL (4.3-11.1)
[2019-06-15 06:54] LABS: Alanine Aminotransferase 11 Units/L (7-52); Albumin 3.2 g/dL (3.5-5.7); Albumin/Globulin Ratio 1.2 (1.1-2.2); Alkaline Phosphatase 96 Units/L (34-104); Aspartate Amino Transferase 14 Units/L (13-39); BUN/Creatinine Ratio 18 (6-26); Bilirubin,Total 0.5 mg/dL (0.3-1.0); Blood Urea Nitrogen 14 mg/dL (6-20); Calcium 8.5 mg/dL (8.6-10.3); Carbon Dioxide 26 mEq/L (23-29); Chloride 106 mEq/L (98-107); Globulin 2.7 g/dL (2.4-3.5); Glucose 89 mg/dL (70-105); Osmolality,Calculated 290 (280-300); Potassium 4.4 mEq/L (3.5-5.1); Sodium 140 mEq/L (136-145); Total Protein 5.9 g/dL (6.4-8.9); eGFR For African Americans > 60 (> 60); eGFR For Non-African Americans > 60 (> 60)
[2019-06-15] MEDS ORDERED: MetroNIDAZOLE 500 MG/100 ML 500 MG/100 ML BAG IVPB SCH ×2 (08:00)
--- NOTE | 2019-06-15 11:15 | Infectious Disease Progress No ---
ID Progress Note Date of Encounter: 06/15/19 Time of Encounter: 11:13 - Subjective Subjective: Patient seen and examined. No acute events noted overnight. Patient states his anxiety is very high today, but otherwise denies acute complaints. Denies fevers, chills, or rigors. Denies chest pain, shortness of breath, or cough. Denies nausea, vomiting, diarrhea, or constipation. Denies abdominal pain or urinary complaints. Denies oral thrush or skin rashes. States his appetite is good. Reports his last vomiting was yesterday. - Objective CBC & Chem 7: 06/16/19 03:40 06/16/19 03:40 - Exam Vitals: Temp Pulse Resp BP Pulse Ox 97.9 F 56 14 133/76 97 06/15/19 10:45 06/15/19 10:45 06/15/19 10:45 06/15/19 10:45 06/15/19 10:45 Exam: Head: Atraumatic, normal inspection, normocephalic. Eye: EOMI, PERRLA, no scleral icterus noted. ENT: Mucous membranes moist. No odontogenic infection noted. Neck: Normal inspection, no meningismus. Respiratory: Clear to auscultation. No rales, respiratory distress, rhonchi, or wheezes noted. Cardiovascular: Regular rhythm, tachycardic. S1 and S2 audible. No murmurs, rubs, or gallops. GI: Soft, nondistended, normal bowel sounds. Nontender. Extremities:No joint swelling, pedal edema, or tenderness noted. Gauze dressing noted to the left thumb and right third finger are clean, dry, and intact. No surrounding erythema or warmth noted. Range of motion intact. Back: Normal inspection. No vertebral tenderness noted. Neurological: Alert, oriented 3, no focal deficits. Psychiatric: normal affect, normal mood. Skin: Dry, intact, warm. Normal color. No rashes. - Assessment and Plan (1) Osteomyelitis Current Visit: Yes Status: Acute Location: Left thumb and right third finger. Etiology: Unclear. Causative organism: Left thumb - MSSA x 2 strains, strep sanguinous, Enterobacter, and Providencia rettgeri. Right finger - MSSA, E. faecalis, and GPR (final ID and sensitivities pending). MRI 06/07/19 right hand reveals bone marrow edema throughout the third middle and distal phalanges with moderate decreased T1 signal compatible with osteomyelitis. Status post irrigation, debridement of the right long finger and left thumb including skin, subcutaneous tissue, and bone 06/07/[address] Bender. Intraoperative cultures as above. Currently on Vanc, flagyl, and cefepime. Qualifiers: Osteomyelitis type: acute hematogenous Osteomyelitis location: hand Laterality: unspecified laterality Qualified Code(s): M86.049 - Acute hematogenous osteomyelitis, unspecified hand SNOMED Code(s): 19422906 (2) Non compliance with medical treatment Current Visit: Yes Status: Acute The patient has signed out AMA 3 times in the past month. Currently has no insurance and is above the income guidelines for Medicaid. airfield services officer consulted to assist with home health/IV antibiotic set up. SNOMED Code(s): 1586355 (3) Buergers disease Current Visit: No Status: Suspected SNOMED Code(s): 49075076 (4) FRANCISCO (generalized anxiety disorder) Current Visit: No Status: Acute SNOMED Code(s): 51393736 (5) Marijuana smoker, continuous Current Visit: No Status: Chronic SNOMED Code(s): 19965443 - Recommendations Recommendations: Recommend ortho to evaluate the surgical wounds. Check ESR and CRP. Continue Vancomycin IV. Pharmacy to dose. Goal trough ~15. Continue Cefepime, but increase to 2 grams IV Q12H. Continue flagyl 500mg TID, but switch to PO. Duration of treatment depends on the clinical picture, but likely 6 weeks. Monitor renal function and for drug toxicity and dose-adjust antibiotics. airfield services officer to assist with discharge planning. Consult VAT for PICC line placement once final discharge arrangements have been made. Will need weekly CBC, BUN/Cr, ESR, CRP, Vanc trough. Will need weekly PICC Care per protocol. Follow up with ID 2 weeks post-discharge. Consult Discharge Plan - Plan Referrals: Kasi Contreras DO [Resident] - 06/28/19 2:00 pm - Attending Attestation I have personally performed a face to face evaluation on this patient. I have reviewed and agree with the care plan. History and Exam by me shows: Assessment and plan Osteomyelitis of the left thumb and the right third finger Noncompliant with medical treatment Billings disease next Recommendations At least 6 weeks of IV antibiotics. We will the prescription for vancomycin, cefepime and Flagyl and weekly labs Patient needs to follow-up with us in clinic in 2 weeks.
[2019-06-15 11:47] LABS: C-Reactive Protein < 5 mg/L (Less than 10)
--- NOTE | 2019-06-15 12:48 | Internal Med Progress Note ---
Hospitalist Progress Note - Encounter Date of Encounter: 06/15/19 Time of Encounter: 10:00 - Subjective Interval History: Patient was seen at bedside. He denies fever, chills, rigors. Mentioned improvement in pain at the site of the ostium mellitus. Denies chest pain, shortness of breath, cough, nausea, vomiting, diarrhea, constipation. Appetite is good. No other acute overnight events. - Exam Vitals: Temp Pulse Resp BP Pulse Ox 97.9 F 56 14 133/76 97 06/15/19 10:45 06/15/19 10:45 06/15/19 10:45 06/15/19 10:45 06/15/19 10:45 Exam: General: Alert and oriented, no physical distress, able to follow commands. HEENT: No thyromegaly, no lymphadenopathy, no discharge. Eyes: No discharge. Respiratory: Normal vesicular breathing, no added sounds, breathing equal in both sides. CVS: Normal heart sounds, no murmurs, no edema. Extremities: No peripheral edema, peripheral pulses intact. Left thumb and the right third finger is packed and dressed. No surrounding erythema, warmth, tenderness. Range of motion intact. No discharge appreciated. Lymph nodes: No lymphadenopathy Gastrointestinal: Soft, nontender abdomen, normal abdominal sounds. No distention noted. Genitourinary: No paravertebral tenderness. Neurological: Alert and oriented. No focal deficits. Cranial nerves II-XII intact. - Assessment and Plan (1) Osteomyelitis Current Visit: Yes Status: Acute Assessment and Plan: -Osteomyelitis of the left thumb as idenified on previous biopsy. As per previous cultures, left thumb had MSSA and strep sanguinous, Enterobacter and providencua. Right finger wound yileded MSSA, E. fecalis and GPR -MRI from 06/07/19 showed osteomyelitis. -As per ID recommendations, patient is currently on cefepime, vancomycin, metronidazole. Continue the current medications. office services representative on board. Patient will have to be discharged with a PICC line and long-term antibiotics. Duration and antibiotics are to be finalized by the ID. (2) Cellulitis of left upper extremity Current Visit: Yes Status: Acute Assessment and Plan: Management plan discussed above. (3) DVT prophylaxis Current Visit: Yes Status: Acute Assessment and Plan: Heparin subcutaneous. (4) Non compliance with medical treatment Current Visit: Yes Status: Acute Assessment and Plan: -Patient had signed out AMA multiple times in the past month. Patient did not complete the medication treatment. office services representative on board. Arrangements being made for the home health antibiotic therapy. 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 (6) BPH (benign prostatic hyperplasia) Current Visit: Yes Status: Acute Assessment and Plan: Continue tamsulosin. - Time Spent with Patient Total time spent is greater than 50% in coordination of care (as documented) at patient's floor/unit and/or counseling patient: Internal Medicine: Result - Labs CBC & Chem 7: 06/15/19 05:43 06/15/19 05:43 Labs: Short CBC 06/15/19 Range/Units 05:43 WBC 3.7 L (4.3-11.1) K/mcL Hgb 11.1 L (12.9-16.9) g/dL Hct 35.2 L (37.5-50.1) % Plt Count 184 (140-400) K/mcL Neutrophils # 1.6 (1.6-8.9) K/mcL BMP 06/15/19 05:43 Sodium 140 Potassium 4.4 Chloride 106 Carbon Dioxide 26 BUN 14 Creatinine 0.76 Glucose 89 Calcium 8.5 L Liver Function 06/15/19 Range/Units 05:43 Total Bilirubin 0.5 (0.3-1.0) mg/dL AST 14 (13-39) Units/L ALT 11 (7-52) Units/L Alkaline Phosphatase 96 (34-104) Units/L Albumin 3.2 L (3.5-5.7) g/dL Consult Discharge Plan - Plan Referrals: Kasi Contreras DO [Resident] - 06/28/19 2:00 pm (1) Osteomyelitis Qualifiers: Osteomyelitis type: acute hematogenous Osteomyelitis location: hand Laterality: unspecified laterality Qualified Code(s): M86.049 - Acute hematogenous osteomyelitis, unspecified hand
--- NOTE | 2019-06-15 15:34 | Orthopedics Progress Note ---
Date of Encounter: 06/15/19 Time of Encounter: 15:34 Subjective Interval history: S: Patient seen and evaluated. He had left AGAINST MEDICAL ADVICE but came back for admission yesterday. I was not contacted about his readmission until today at 3:15 PM. The patient indicates that he left AGAINST MEDICAL ADVICE because he is not getting his anxiety medication here and he had to go home to take it. Regarding his left thumb he says he may have "bumped it a few times". He says it is quite painful about 48 hours ago but is feeling better now. No new injuries or complaints otherwise. He denies any significant pain to the right long finger. O: Afebrile on the vital signs are stable Left thumb does show wound dehiscence and breakdown the edges. Mild serous drainage. No purulence. Minimal tenderness to the tip. Right long finger is healing quite nicely and granulating well at the volar pad. No significant tenderness to palpation. Neurovascularly intact to the tips of all the residual digits. A: Left thumb osteomyelitis. P: Right long finger is healing nicely and cultures and biopsy were negative for osteomyelitis. Regarding the patient's left thumb indicated that due to the presence of wound dehiscence and breakdown, the plan is to perform a debridement and irrigation with wound closure. I did indicate to the patient that he is at risk of losing his entire thumb, and he does verbalized his understanding and that he needs to significantly improve his compliance in order to reduce the risk to as low as possible. He did verbalizes understanding and I feel that he does understand, however he appears quite unengaged regarding the current status of his thumb. We will plan on debridement and irrigation, freshening of the wound edges, and closure of his wound dehiscence tomorrow in the operating room. He is also scheduled to get a PICC line and will require IV antibiotics per the infectious disease team. Objective Vital signs: Vital Signs Temp Pulse Resp BP Pulse Ox 06/15/19 15:07 98.1 F 58 14 135/89 100 06/15/19 10:45 97.9 F 56 14 133/76 97 06/15/19 06:27 98.0 F 52 14 139/87 98 06/15/19 03:52 98.3 F 56 14 138/78 99 06/14/19 19:25 98.8 F 66 16 124/75 100 Intake and Output 06/14/19 06/15/19 06/15/19 23:59 07:59 15:59 Intake Total 270 / 470 250 / 1160 910 / 1160 Output Total 0 / 0 0 / 0 0 / 0 Balance 270 / 470 250 / 1160 910 / 1160 Intake: IV Fluids 270 / 470 250 / 600 350 / 600 Rocephin 2,000 MG In Water for inj. (sterile) 20 ML @ 600 mls/ hr IVP Q12HR [facility] Rx#:[id number] Flagyl Premix 500 MG/100 ML 500 100 / 100 mg In 100 ml @ 100 mls/hr IVPB Q8HR REK[facility] Rx#:[id number] Vancocin 1,000 MG In 0.9 % 250 / 250 250 / 500 250 / 500 Sodium Chloride 250 ML @ 167 mls/hr IVPB Q12H REK[facility] Rx#: [id number] Oral 0 / 0 0 / 560 560 / 560 Output: Urine 0 / 0 0 / 0 0 / 0 Other: Meal Dinner Lunch Percent of Meal Consumed 100% 100% # Voids 2 2 Weight 74.3 kg Patient Weight 06/15/19 23:59 Weight 74.3 kg - Labs CBC & BMP: 06/15/19 05:43 06/15/19 05:43 Labs: Abnormal lab results WBC 3.7 K/mcL (4.3-11.1) L 06/15/19 05:43 Hgb 11.1 g/dL (12.9-16.9) L 06/15/19 05:43 Hct 35.2 % (37.5-50.1) L 06/15/19 05:43 MCH 26.3 pg (28.0-33.3) L 06/15/19 05:43 MCHC 31.5 g/dL (31.6-35.5) L 06/15/19 05:43 RDW 14.6 % (11.5-14.5) H 06/15/19 05:43 ESR 15 mm/hr (0-10) H 06/15/19 05:43 Glucose 116 mg/dL (70-105) H 06/14/19 09:41 Calcium 8.5 mg/dL (8.6-10.3) L 06/15/19 05:43 Serum Total Protein 5.9 g/dL (6.4-8.9) L 06/15/19 05:43 Albumin 3.2 g/dL (3.5-5.7) L 06/15/19 05:43 Consult Discharge Plan - Plan Referrals: Kasi Contreras DO [Resident] - 06/28/19 2:00 pm
[2019-06-15] MEDS: metroNIDAZOLE 500 MG TABLET PO SCH ×2 (15:48→21:39)
[2019-06-15] MEDS: *HR* LORazepam 2 MG/ML VIAL IVP PRN (17:25)
[2019-06-15] MEDS: Cefepime HCl 2,000 MG in 0.9 % Sodium Chloride Mini Bag 100 ML IVPB SCH (17:26)
[2019-06-15] MEDS ORDERED: Cefepime HCl 1,000 MG in 0.9 % Sodium Chloride Mini Bag 100 ML IVPB SCH (18:00)
--- NOTE | 2019-06-15 18:13 | Anesthesia Evaluation PreOp ---
Date of Encounter: 06/15/19 Time of Encounter: 18:11 - Past History Planned Operation: I&D Left Thumb Cardiac History: HTN, Hyperlipidemia Pulmonary History: Smoker MAP COLORER History: Denies Any Significant HX Other Medical History: Hepatic, Thyroid, GERD, Other (Buerger's Disease) Anesthesia History: No Prior Anesthetic Complications, Past Anesthesia (GB, Thumb, Left Knee, sphincterotomy,partial finger amp.) Alcohol Use: none Drug use: marijuana Medications and Allergies Polyethylene Glycol 3350 [MiraLAX] 17 gm PO DAILY 06/15/19 [History] Tamsulosin HCl [Flomax] 0.4 mg PO BID 06/15/19 [History] hydrOXYzine HCl [Hydroxyzine HCl] 25 mg PO TID PRN 06/15/19 [History] Allergy/AdvReac Type Severity Reaction Status Date / Time No Known Allergies Allergy Verified 06/14/19 08:02 - Meds/Allergy Pre-op Review Medications Reviewed: Yes Allergies Reviewed: Yes Beta Blockers on Current Med List: No (none on DEC) Anesthesia Results - Labs 06/15/19 05:43 06/15/19 05:43 - Imaging EKG: report reviewed (SINUS RHYTHM wnl Electronically Signed On 02-11-2018 17:17:48 EDT by Sanford Flores) Anesthesia Exam Vital Signs/O2 Sat, Most Current Temp Pulse Resp BP Pulse Ox 98.1 F 58 14 135/89 100 06/15/19 15:07 06/15/19 15:07 06/15/19 15:07 06/15/19 15:07 06/15/19 15:07 - HEENT Pupil (Motor): Pupils equal, EOMI Mallampati: II Teeth: Normal Oral Opening: Greater than 3 - MAP COLORER LOC: Oriented MAP COLORER Motor: Normal RUE, Normal LUE, Normal RLE, Normal LLE, Normal Face MAP COLORER Sensory: Normal: RUE, LUE, RLE, LLE, Face - Cardiac Rhythm: Regular Murmur: None JVD: No Carotid Bruit: No - Pulmonary Breath Sounds: bilateral Clear Respiratory Effort: Symmetrical Anesthesia Assess/Plan ASA Score: 3 Level of consciousness: Cooperative Anesthetic Plan: General Autologous Blood: Yes Monitoring Plan: Standard Monitors Recovery Plan: PACU
[2019-06-16] MEDS ORDERED: Aminoglycoside Consult 1 EACH MC ONE (00:38)
[2019-06-16 04:25] LABS: Basophils % 0.7 %; Eosinophils # 0.2 K/mcL (0.0-0.6); Eosinophils % 4.1 %; Hemoglobin 11.2 g/dL (12.9-16.9); Immature Granulocytes % 0.3 % (0-4); Lymphocytes # 1.9 K/mcL (0.6-4.6); Lymphocytes % 33.3 %; Mean Corpuscular Hemoglobin 26.1 pg (28.0-33.3); Mean Corpuscular Volume 81.6 fL (83.0-100.0); Mean Platelet Volume 10.7 fL (9.4-12.4); Monocytes # 0.4 K/mcL (0.0-1.3); Neutrophils # 3.2 K/mcL (1.6-8.9); Platelet Count 200 K/mcL (140-400); Red Blood Count 4.29 M/mcL (4.19-5.50); Red Cell Distribution Width 14.5 % (11.5-14.5); Segmented Neutrophils % 55.6 %
[2019-06-16 04:27] LABS: White Blood Count 5.8 K/mcL (4.3-11.1)
[2019-06-16 04:42] LABS: BUN/Creatinine Ratio 16 (6-26); Blood Urea Nitrogen 14 mg/dL (6-20); Calcium 8.8 mg/dL (8.6-10.3); Carbon Dioxide 27 mEq/L (23-29); Chloride 109 mEq/L (98-107); Glucose 97 mg/dL (70-105); Osmolality,Calculated 290 (280-300); Potassium 4.1 mEq/L (3.5-5.1); Sodium 140 mEq/L (136-145); eGFR For African Americans > 60 (> 60); eGFR For Non-African Americans > 60 (> 60)
[2019-06-16] MEDS: *HR* Heparin 5,000 UNIT/ML VIAL SQ SCH (05:45)
[2019-06-16] MEDS: Cefepime HCl 2,000 MG in 0.9 % Sodium Chloride Mini Bag 100 ML IVPB SCH (05:46)
[2019-06-16] MEDS: metroNIDAZOLE 500 MG TABLET PO SCH ×2 (07:33→15:23)
[2019-06-16] MEDS: *HR* LORazepam 2 MG/ML VIAL IVP PRN (07:35)
[2019-06-16 09:09] LABS: Amphetamine Screen,Urine Negative ng/mL (Cutoff=1000); Barbiturate Screen,Urine Negative ng/mL (Cutoff=200)
[2019-06-16 09:10] LABS: Benzodiazepines Screen,Urine Positive ng/mL (Cutoff=300); Cannabinoid Screen,Urine Positive ng/mL (Cutoff = 50); Cocaine Screen,Urine Negative ng/mL (Cutoff= 300); Opiate Screen,Urine Negative ng/mL (Cutoff=300); Phencyclidine Screen,Urine Negative ng/mL (Cutoff=25)
[2019-06-16] MEDS ORDERED: Lidocaine -MPF 1% 5 ML AMPUL INFILT ONE ×2 (09:57→18:29)
[2019-06-16] MEDS ORDERED: *HR* LORazepam 0.5 MG TABLET PO PRN ×2 (10:40→18:29)
--- NOTE | 2019-06-16 14:21 | Internal Med Progress Note ---
Hospitalist Progress Note - Encounter Date of Encounter: 06/16/19 Time of Encounter: 10:55 - Subjective Interval History: Patient was seen at bedside. Plan for wound debridement and irrigation with warm clear by orthopedics today. Patient denies fever, chills, rigors. Expresses wishes to leave AMA. Discussed with the patient and explained to him that leaving AMA could result in infection progression, and can also lead to loss of his thumb. - Exam Vitals: Temp Pulse Resp BP Pulse Ox 97.9 F 72 14 132/94 100 06/16/19 14:08 06/16/19 14:08 06/16/19 14:08 06/16/19 14:08 06/16/19 14:08 Exam: General: Alert and oriented, no physical distress, able to follow commands. Respiratory: Normal vesicular breathing, no added sounds, breathing equal in both sides. CVS: Normal heart sounds, no murmurs, no edema. Extremities: No peripheral edema, peripheral pulses intact. Left thumb and the right third finger is packed and dressed. No surrounding erythema, warmth, tenderness. Range of motion intact. No discharge appreciated. Lymph nodes: No lymphadenopathy Gastrointestinal: Soft, nontender abdomen, normal abdominal sounds. No distention noted. Genitourinary: No paravertebral tenderness. Neurological: Alert and oriented. No focal deficits. Cranial nerves II-XII intact. - Assessment and Plan (1) Osteomyelitis Current Visit: Yes Status: Acute Assessment and Plan: -Osteomyelitis of the left thumb as idenified on previous biopsy. As per previous cultures, left thumb had MSSA and strep sanguinous, Enterobacter and providencia. Right finger wound yileded MSSA, E. fecalis and GPR -MRI from 06/07/19 showed osteomyelitis. -Underwent debridement with irrigation and wound closure by orthopedics. -As per ID recommendations, patient is currently on vancomycin and ceftriaxone. Continue the current medications. Scripts are provided by the ID and the patient be continued on this medication as an outpatient. counseling services manager on board. Arrangements are being made for home health, antibiotics, but there have been social issues and arranging on this. Patient will most likely have to stay over the weekend for the continuation of the antibiotics and antibiotics will most likely be arranged on Wednesday. Discussed with the patient. Patient is reluctant and wants to leave AMA but explained the patient that he will put himself at risk of losing his thumb. Patient was understanding and expresses that he will most likely stay. Patient will have to be discharged with a PICC line which should be placed before discharge. (2) Cellulitis of left upper extremity Current Visit: Yes Status: Acute Assessment and Plan: Management plan discussed above. (3) DVT prophylaxis Current Visit: Yes Status: Acute Assessment and Plan: Heparin subcutaneous. (4) Non compliance with medical treatment Current Visit: Yes Status: Acute Assessment and Plan: -Patient had signed out AMA multiple times in the past month. Patient did not complete the medication treatment. counseling services manager on board. Arrangements being made for the home health antibiotic therapy. 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 (6) BPH (benign prostatic hyperplasia) Current Visit: Yes Status: Acute Assessment and Plan: Continue tamsulosin. (7) Marijuana abuse Current Visit: Yes Status: Acute Assessment and Plan: -UDS positive for marijuana -Advised to quit marijuana (8) Anxiety Current Visit: No Status: Chronic Assessment and Plan: Complaining of anxiety -Ativan PO as needed - Time Spent with Patient Total time spent is greater than 50% in coordination of care (as documented) at patient's floor/unit and/or counseling patient: Internal Medicine: Result - Labs CBC & Chem 7: 06/16/19 03:40 06/16/19 03:40 Labs: Short CBC 06/16/19 Range/Units 03:40 WBC 5.8 D (4.3-11.1) K/mcL Hgb 11.2 L (12.9-16.9) g/dL Hct 35.0 L (37.5-50.1) % Plt Count 200 (140-400) K/mcL Neutrophils # 3.2 (1.6-8.9) K/mcL BMP 06/16/19 03:40 Sodium 140 Potassium 4.1 Chloride 109 H Carbon Dioxide 27 BUN 14 Creatinine 0.89 Glucose 97 Calcium 8.8 Consult Discharge Plan - Plan Referrals: Kasi Contreras DO [Resident] - 06/28/19 2:00 pm (1) Osteomyelitis Qualifiers: Osteomyelitis type: acute hematogenous Osteomyelitis location: hand Lateral ity: unspecified laterality Qualified Code(s): M86.049 - Acute hematogenous osteomyelitis, unspecified hand
[2019-06-16] MEDS ORDERED: cefTRIAXone 2,000 MG in Water for inj. (sterile) 20 ML IVP SCH (15:00)
[2019-06-16] MEDS ORDERED: cefTRIAXone 2,000 MG in 0.9 % Sodium Chloride Mini Bag 100 ML IVPB SCH (15:00)
--- NOTE | 2019-06-16 16:08 | Discharge Summary ---
- NOTES TO OUTPATIENT PROVIDER Notes to Outpatient Provider: Hx of osteomyelitis, presented with the worsening ostemyelitis. Being discharged on metronidazole, IV vanc and IV ceftriaxone for total of 6 weeks. Labs need to be monitored, pt prvided with the scripts for the lab Date of Encounter: 06/16/19 Time of Encounter: 10:00 - Discharge Diagnosis (1) Osteomyelitis Priority: Primary Status: Acute Qualifiers: Osteomyelitis type: acute hematogenous Osteomyelitis location: hand Laterality: unspecified laterality Qualified Code(s): M86.049 - Acute hematogenous osteomyelitis, unspecified hand (2) Cellulitis of left upper extremity Priority: Secondary Status: Acute (3) DVT prophylaxis Priority: Secondary Status: Acute (4) Non compliance with medical treatment Priority: Secondary Status: Acute (5) Buergers disease Priority: Secondary Status: Suspected (6) BPH (benign prostatic hyperplasia) Priority: Secondary Status: Acute Qualifiers: Lower urinary tract symptom presence: unspecified whether lower urinary tract symptoms present Qualified Code(s): N40.0 - Benign prostatic hyperplasia without lower urinary tract symptoms (7) Marijuana abuse Priority: Secondary Status: Acute (8) Anxiety Priority: Secondary Status: Chronic Hospital course: Mr. Naranjo is a 38 year old male with a past medical history of osteomyelitis of the thumb, presented for the evaluation of ongoing infection. Patient has a history of noncompliance and has been leaving the hospital against medical advice multiple times without completing the course of antibiotics. The infection has been getting worse and he was told multiple times to complete the course of the antibiotics. This time he came again with the similar complaints. Infectious disease and orthopedics were consulted. Patient got wound debridement, irrigation wound clear by orthopedics today. Arrangements are made to arrange antibiotics for patient at home. There are problems initially but ultimately antibiotics that arranged and patient will be getting antibiotics via home health by tomorrow. Patient will be given IV vancomycin, IV ceftriaxone, by mouth Flagyl for 6 weeks for the osteomyelitis. Patient was counseled that in case of noncompliance, in ability to complete the course of the antibiotics, he is at at risk of losing his thumb. Patient voiced understanding. Prescription for provided to the health and social care teacher. Patient was also given a prescription for lab work by the ID. Patient is being discharged in stable condition. He will also need dressings of his wounds by the home health. - Time Spent with Patient Total time spent providing and/or coordinating discharge services: 55 minutes - Discharge Medications Prescriptions: New Vancomycin/0.9 % Sod Chloride [Vanco 1.5 gm/250 ml-0.9% NaCl] 1.5 gm IV BID 42 Days #84 plast..bag metroNIDAZOLE [Flagyl] 500 mg PO TID tablet Continued Tamsulosin HCl [Flomax] 0.4 mg PO BID Polyethylene Glycol 3350 [MiraLAX] 17 gm PO DAILY hydrOXYzine HCl [Hydroxyzine HCl] 25 mg PO TID PRN PRN Reason: Anxiety Home Medications: Polyethylene Glycol 3350 [MiraLAX] 17 gm PO DAILY 06/15/19 [History] Tamsulosin HCl [Flomax] 0.4 mg PO BID 06/15/19 [History] hydrOXYzine HCl [Hydroxyzine HCl] 25 mg PO TID PRN 06/15/19 [History] Vancomycin/0.9 % Sod Chloride [Vanco 1.5 gm/250 ml-0.9% NaCl] 1.5 gm IV BID 42 Days #84 plast..bag 06/16/19 [Rx] metroNIDAZOLE [Flagyl] 500 mg PO TID tablet 06/16/19 [Rx] Allergies/Adverse Reactions: Allergy/AdvReac Type Severity Reaction Status Date / Time No Known Allergies Allergy Verified 06/14/19 08:02 Date of admission: 06/14/19 11:21 Primary care physician: PCP NONE Consults: 06/14/19 09:13 Consult to Infectious Diseases [CONS] Stat Consulting Provider: Infectious Disease [place] Reason for Consult: osteomyelitis Call Completed: Yes 06/14/19 13:36 Consult to Hardware Developer [CONS] Routine Reason for SW Consult: will need home health to follow up with IV antibiotics 06/14/19 16:58 Consult to Wound Care [CONS] Routine Reason for Consult: dressing on both hand Call Completed: Yes 06/15/19 15:37 Consult to Orthopedic Surgery [CONS] Routine Consulting Provider: [facility] Reason for Consult: Osteomyelitis. Call Completed: No 06/16/19 09:58 Consult to Invasive Line Access Team [CONS] Routine Reason for Consult: Picc Line Insertion Line Type: PICC - Constitutional Vitals: Temp Pulse Resp BP Pulse Ox 97.9 F 72 14 132/94 100 06/16/19 14:08 06/16/19 14:08 06/16/19 14:08 06/16/19 14:08 06/16/19 14:08 General appearance: Present: A&O X 3 Exam: General: Alert and oriented, no physical distress, able to follow commands. Respiratory: Normal vesicular breathing, no added sounds, breathing equal in both sides. CVS: Normal heart sounds, no murmurs, no edema. Extremities: No peripheral edema, peripheral pulses intact. Left thumb and the right third finger is packed and dressed. No surrounding erythema, warmth, tenderness. Range of motion intact. No discharge appreciated. Lymph nodes: No lymphadenopathy Gastrointestinal: Soft, nontender abdomen, normal abdominal sounds. No distention noted. Genitourinary: No paravertebral tenderness. Neurological: Alert and oriented. No focal deficits. Cranial nerves II-XII intact. - Patient Status Disposition: Home Health Service Condition: Fair Functional capacity at discharge: independent ambulation Overall status at discharge: patient is progressing back to baseline - Discharge Instructions Follow Up With: Kasi Contreras DO [Resident] - 06/28/19 2:00 pm - Diet and Activity Activity: increase activity as tolerated Diet: advance to your usual diet
--- NOTE | 2019-06-16 16:17 | Physician Discharge Referral ---
Home Health/Hosp Referral Info Transfer to: Home Health - Diagnosis (1) Osteomyelitis Priority: Primary Status: Acute (2) Cellulitis of left upper extremity Priority: Secondary Status: Acute (3) DVT prophylaxis Priority: Secondary Status: Acute (4) Non compliance with medical treatment Priority: Secondary Status: Acute (5) Buergers disease Priority: Secondary Status: Suspected (6) BPH (benign prostatic hyperplasia) Priority: Secondary Status: Acute (7) Marijuana abuse Priority: Secondary Status: Acute (8) Anxiety Priority: Secondary Status: Chronic - Respiratory Orders Smoking Cessation: Smoking cessation has been advised. For more information, call the [place] Tobacco Quit Line at 7-040-TSWWNOW. - Services Needed Following services are medically necessary services: Nursing, Home Infusion Other Treatments: Pt will need wound care at home - Transfer Medications Prescriptions: Vancomycin/0.9 % Sod Chloride [Vanco 1.5 gm/250 ml-0.9% NaCl] 1.5 gm IV BID 42 Days #84 plast..bag Home Medications: Polyethylene Glycol 3350 [MiraLAX] 17 gm PO DAILY 06/15/19 [History] Tamsulosin HCl [Flomax] 0.4 mg PO BID 06/15/19 [History] hydrOXYzine HCl [Hydroxyzine HCl] 25 mg PO TID PRN 06/15/19 [History] Vancomycin/0.9 % Sod Chloride [Vanco 1.5 gm/250 ml-0.9% NaCl] 1.5 gm IV BID 42 Days #84 plast..bag 06/16/19 [Rx] metroNIDAZOLE [Flagyl] 500 mg PO TID tablet 06/16/19 [Rx] Allergies/Adverse Reactions: Allergy/AdvReac Type Severity Reaction Status Date / Time No Known Allergies Allergy Verified 06/14/19 08:02 Certification: Further, I certify that my clinical findings support that this patient is homebound (i.e. absences from home require considerable and taxing effort and are for medical reasons or buddhist services or infrequently or short duration when for other reasons) because: Homebound Reason: Patient requires assistance of a person or device to safely leave home Attestation: My signature below is to certify that this patient is under my care and that I, or nurse practitioner, or a physician's research lab assistant working with me, has a [id number] encounter with this patient.
[2019-06-16] MEDS ORDERED: *HR* FentaNYL (PF) 100 MCG/2 ML VIAL ONE (16:47)
[2019-06-16] MEDS ORDERED: Bupivacaine/EPI 1:200k 0.5%PF 10 ML VIAL ONE (16:47)
[2019-06-16] MEDS ORDERED: *HR* Midazolam HCl 2 MG/2 ML VIAL ONE ×2 (16:47→16:58)
[2019-06-16] MEDS ORDERED: *HR* Propofol 200 MG/20 ML VIAL IVP ONE (16:47)
[2019-06-16] MEDS ORDERED: Lidocaine -MPF 2% 2 ML VIAL ONE (16:48)
[2019-06-16] MEDS ORDERED: Dexamethasone 4 MG/ML VIAL ONE (16:49)
[2019-06-16] MEDS ORDERED: Ondansetron 4 MG/2 ML VIAL ONE (16:49)
[2019-06-16] MEDS ORDERED: *HR* HYDROmorphone (PF) 1 MG/ML SYRINGE IVP PRN ×2 (16:51→18:29)
[2019-06-16] MEDS ORDERED: *HR* OxyCODONE Immed Rel 5 MG TABLET PO PRN ×2 (16:51→18:29)
[2019-06-16] MEDS ORDERED: *HR* Midazolam HCl 2 MG/2 ML VIAL IVP PRN ×2 (16:51→18:29)
[2019-06-16] MEDS ORDERED: Ondansetron 4 MG/2 ML VIAL IVP ONE ×2 (16:51→18:29)
--- NOTE | 2019-06-16 18:09 | Anesthesia Evaluation Post Op ---
Date of Encounter: 06/16/19 Time of Encounter: 18:08 - Vital Signs Vital Signs: Vital Signs/O2 Sat, Most Current Temp Pulse Resp BP Pulse Ox 97.5 F L 89 18 133/86 99 06/16/19 17:43 06/16/19 18:03 06/16/19 18:03 06/16/19 18:03 06/16/19 18:03 - Lungs Lungs: Clear Ascult./Percussion - Airway Airway: Non-obstructed - Cardiovascular Regular Rate - Mental Status Mental Status: Alert & Oriented, Answers Appropriately - Pain Pain Scale: 0 Pain Scale used: Numeric (1 - 10) - Nausea Vomiting Nausea Vomiting: Not Present - Hydration Hydration: Ice chips, Has not voided - Discharge PostOp Status: Transfer Patient to floor
[2019-06-16] MEDS ORDERED: MOM Conc 10 ML UD.LIQ PO PRN (18:29)
[2019-06-16] MEDS ORDERED: traMADol 50 MG TABLET PO PRN (18:29)
[2019-06-16] MEDS ORDERED: Ondansetron 4 MG/2 ML VIAL IVP PRN (18:29)
[2019-06-16] MEDS ORDERED: Mag Hydrox/Al Hydrox/Simeth 30 ML UDC PO PRN (18:29)
[2019-06-16] MEDS ORDERED: Naloxone 0.4 MG/ML INJ IVP PRN (18:29)
[2019-06-16] MEDS ORDERED: Acetaminophen 325 MG TABLET PO PRN (18:29)
[2019-06-16] MEDS ORDERED: *HR* Promethazine 25 MG/ML VIAL IVP PRN (18:29)
--- NOTE | 2019-06-16 18:43 | Orthopedic Operative Note ---
Date of procedure: 06/16/19 Procedure: OPERATIVE REPORT SURGEON: Amos Dominguez MD PREOPERATIVE DIAGNOSIS: Left thumb wound dehiscence with breakdown POSTOPERATIVE DIAGNOSIS: Left thumb wound dehiscence with breakdown PROCEDURE: Debridement and irrigation of left thumb with wound closure over [place] drains ANESTHESIA: General anesthesia SPECIMENS: Left thumb swabs and tissue obtained for culture PREOPERATIVE NOTE The surgical plan was reviewed with the patient. The risks, benefits, alternatives, and potential complications of this procedure were discussed with the patient including injury to veins, arteries, nerves, tendons, ligaments, and bone. Also discussed were the risks of infection, bleeding, pain, blood clots, the possible need for a blood transfusion, the possible need for further procedures, heart attack, stroke, and . Additional risks include the need for further surgery. All of this was explained in simple terms, and the patient verbalized understanding and wished to proceed. Consent was given to proceed with surgery. PROCEDURE: The patient was seen in the preoperative holding area where the identify and the consent were confirmed. The left thumb was marked. Final questions were answered. The patient was brought back to the operating room and placed supine on the operating room table. A huddle was performed with the patient and all vital surgical team members confirming patient identity, the correct procedure, and the correct operative site. Gen. anesthesia was administered. The operative extremity was prepped and draped in the usual sterile fashion. A surgical time out was performed immediately preceding the incision with all personnel in the operating room to confirm patient identity, the correct operative site and extremity, correct radiographic studies, availability of appropriate surgical equipment, and agreement on the planned procedure. The tourniquet was inflated without exsanguination. The old sutures were taken out and the wound was explored. The volar flap had hypertrophic granulation tissue which was sharply debrided. The wound edges were freshened sharply. There was no purulence within the wound. The residual proximal phalanx was scraped. Samples of the scraped proximal phalanx were sent for soft tissue culture and the area was swabbed. Overall there is no significant necrotic material. The wound was copiously irrigated and the wound bed appeared healthy. The wound was loosely closed over a small [place] drain. A soft, sterile dressing was applied. The instrument, sponge, and needle counts were correct after wound closure. POST OPERATIVE PLAN: Continue IV antibiotics per the infectious disease specialists and local wound care at home in the form of daily dressing changes. Was there an chiropractic assistant present: No Estimated blood loss (cc): 1
--- NOTE | 2019-06-16 19:06 | Orthopedics Progress Note ---
Date of Encounter: 06/16/19 Time of Encounter: 19:04 Subjective Interval history: S: Minimal pain to the left thumb post debridement and wound closure. O: Afebrile on the vital signs are stable Left thumb with postop dressing. Right long finger with dressing intact. He can grossly flex and extend the residual digits in the fingertips are sensate and well-perfused. A: Post I&D of the left thumb with wound closure after wound dehiscence/breakdown Post I&D of the right long finger P: At this point patient is stable for discharge as his home care set up for both antibiotics and wound care. He is going to get vancomycin, Rocephin, and Flagyl per the infectious disease specialists. My recommendation is daily local wound care with dressing changes once a day I will see the patient on Wednesday for a wound evaluation or sooner if needed. Objective Vital signs: Vital Signs Temp Pulse Resp BP Pulse Ox 06/16/19 18:58 96.1 F L 66 15 152/85 06/16/19 18:30 97.4 F L 79 18 139/86 97 06/16/19 18:12 97.6 F 83 16 158/82 99 06/16/19 18:03 89 18 133/86 99 06/16/19 17:53 105 20 138/84 100 06/16/19 17:43 97.5 F L 104 20 140/85 100 06/16/19 14:08 97.9 F 72 14 132/94 100 06/16/19 11:04 97.9 F 79 14 125/79 100 06/16/19 06:42 164/84 06/16/19 06:28 97.7 F 62 14 160/93 98 06/16/19 05:01 98.0 F 51 14 128/79 95 06/16/19 00:05 98.8 F 72 16 112/72 98 Intake and Output 06/16/19 06/16/19 06/16/19 07:59 15:59 23:59 Intake Total 250 / 250 Output Total 0 / 1 Balance 250 / 249 0 / 249 -1 249 Intake: IV Fluids 250 / 250 Vancocin 1,250 MG In 0.9 % 250 / 250 Sodium Chloride 250 ML @ 166. 667 mls/hr IVPB Q12H [facility] Rx#: [id number] Oral 0 / 0 Output: Urine 0 / 0 Estimated Blood Loss Other: Meal NPO # Voids 1 1 Weight 74.8 kg Blood Glucose* 87 88 Patient Weight 06/16/19 23:59 Weight 74.8 kg - Labs CBC & BMP: 06/16/19 03:40 06/16/19 03:40 Labs: Abnormal lab results WBC 3.7 K/mcL (4.3-11.1) L 06/15/19 05:43 Hgb 11.2 g/dL (12.9-16.9) L 06/16/19 03:40 Hct 35.0 % (37.5-50.1) L 06/16/19 03:40 MCV 81.6 fL (83.0-100.0) L 06/16/19 03:40 MCH 26.1 pg (28.0-33.3) L 06/16/19 03:40 MCHC 31.5 g/dL (31.6-35.5) L 06/15/19 05:43 RDW 14.6 % (11.5-14.5) H 06/15/19 05:43 ESR 15 mm/hr (0-10) H 06/15/19 05:43 Chloride 109 mEq/L (98-107) H 06/16/19 03:40 Glucose 116 mg/dL (70-105) H 06/14/19 09:41 Calcium 8.5 mg/dL (8.6-10.3) L 06/15/19 05:43 Serum Total Protein 5.9 g/dL (6.4-8.9) L 06/15/19 05:43 Albumin 3.2 g/dL (3.5-5.7) L 06/15/19 05:43 U Benzodiazepines Scrn Positive ng/mL (Nhpasj=624) H 06/16/19 08:32 U Marijuana (THC) Screen Positive ng/mL (Cutoff = 50) H 06/16/19 08:32 Consult Discharge Plan - Plan Additional Instructions: Wound Care instructions: Change the left thumb and right long finger dressings once a day. Pulled the [place] drains from the left thumb on 06/17/2019. Recover the wounds with Xeroform, 2 x 2's, and Coban. Follow up: Dr. Dominguez on Wednesday06/19/19 Spoke with current floor RN who will make the web request. Referrals: Kasi Contreras DO [Resident] - 06/28/19 2:00 pm Prescriptions: Vancomycin/0.9 % Sod Chloride [Vanco 1.5 gm/250 ml-0.9% NaCl] 1.5 gm IV BID 42 Days #84 plast..bag
[2019-06-16] MEDS ORDERED: metroNIDAZOLE 500 MG TABLET PO SCH (21:00)
[2019-06-16 23:38] VITALS: BP 138/86
[2019-06-17] MEDS ORDERED: *HR* Heparin 5,000 UNIT/ML VIAL SQ SCH (06:00)
[2019-06-17] MEDS ORDERED: cefTRIAXone 2,000 MG in Water for inj. (sterile) 20 ML IVP SCH (15:00)
== END 2019-06-17 00:39 | disposition home health service (06) ==
LOC: 3ANU 07:59 → EMEROOARM 07:59 → SUATTDRO 11:21 → 3ANU 12:01
PROVIDERS: ADMIT Internal Medicine Nephrology; ATTEND Internal Medicine

== ENCOUNTER 2019-07-14 07:15 | Observation (INO) ==
--- NOTE | 2019-07-14 07:48 | Emergency Department Note ---
Disposition Clinical Impression: Amputation of thumb with complication Qualifiers: Encounter type: initial encounter Laterality: left Qualified Code(s): S68.012A - Complete traumatic metacarpophalangeal amputation of left thumb, initial encounter Disposition: Admitted As Inpatient Condition: Fair Time of Disposition: 06:06 General Adult HPI - General Chief complaint: ED Recheck/Abnormal Lab/Rx Stated complaint: picc line came out Time Seen by Provider: 07/14/19 07:23 Source: patient Limitations: no limitations Nursing Notes Reviewed: Yes Vital Signs Reviewed: Yes - History of Present Illness HPI Narrative: Alert and oriented and nontoxic 39-year-old male presents with complaint of "I think my PICC line is loose" , patient also reports that his "sutures fell out" of his thumb left upper extremity. Patient reports that as he was removing his shirt yesterday his dressing was loose over his PICC line and the sleeve of his shirt caught the PICC line pulling on it. He reports that his antibiotic infusion seemed to take a little longer today and states concern PICC line was pulled out partially. He also reports that he had a partial thumb amputation performed by Dr. Dominguez approximately one month ago, he states that sutures started falling out pulmonary a few days ago so he packed the open wound site with dry gauze. The patient denies pain or edema PICC line site. Denies fever, chills, shortness of breath, weakness, malaise. Onset (ago): week(s) Pain Scale: 0 Worsens with: nothing Associated symptoms: Reports: denies other symptoms Treatments Prior to Arrival: none - Related Data Home Medications Medication Instructions Recorded Confirmed Tamsulosin HCl [Flomax] 0.4 mg PO BID 06/15/19 07/14/19 hydrOXYzine HCl [Hydroxyzine HCl] 25 mg PO TID PRN 06/15/19 07/14/19 Ceftriaxone Na/Dextrose,Iso 2,000 mg IV Q24H 07/14/19 07/14/19 [Ceftriaxone 2 gm-D5w Bag] Vancomycin/0.9 % Sod Chloride 1,250 mg IV Q12H 07/14/19 07/14/19 [Vanco 1.25 gm/250 ml-0.9% NaCl] metroNIDAZOLE [Flagyl] 500 mg PO TID 07/14/19 07/14/19 Allergies Allergy/AdvReac Type Severity Reaction Status Date / Time No Known Allergies Allergy Verified 06/14/19 08:02 Review of Systems: As Per HPI Constitutional: Reports: as per HPI. Denies: fever, chills, weakness Cardiovascular: Denies: chest pain, palpitations, dyspnea on exertion Respiratory: Denies: cough, dyspnea, wheezes Gastrointestinal: Denies: abdominal pain, nausea, vomiting Musculoskeletal: Reports: as per HPI. Denies: back pain, neck pain, joint swelling, myalgia Integumentary: Denies: rash Neurological: Denies: headache, weakness, numbness, paresthesias Past Medical History - Past Medical History Attestation: Yes The following information was validated with the patient. Source: patient, nursing notes reviewed Medical history: Reports: arthritis, DVT, GERD, GI bleed, hyperlipidemia, hypertension, liver disease, thyroid disease, other Surgical history: Reports: cholecystectomy, orthopedic, other, other Psychiatric history: Reports: anxiety - Social History Smoking Status: Former smoker Smokeless Tobacco Status: No Alcohol use: Reports: none Drug use: Reports: marijuana Physical Exam - General Limitations: no limitations General appearance: alert - Head Head exam: atraumatic, normocephalic - Eye Eye exam: Present: normal appearance, EOMI. Absent: scleral icterus, conjunctival injection, periorbital swelling - ENT ENT exam: normal exam, mucous membranes moist - Neck Neck exam: Present: normal inspection, trachea midline. Absent: meningismus - Chest Chest inspection: Present: normal inspection, symmetric chest wall rise - Respiratory Respiratory exam: Present: normal lung sounds bilaterally. Absent: respiratory distress, wheezes, stridor, accessory muscle use - Cardiovascular Cardiovascular exam: Present: regular rate, normal heart sounds - Abdominal Exam Abdominal exam: Present: Non-Tender - Expanded Upper Extremity Exam Hand L/R back image: 1 - Partial amputation site. Open wound at distal end of proximal phalanx. Yellow eschar tissue noted covering site. No erythema, induration or fluctuation noted surrounding site. No active drainage at this time. Vascular exam: Normal: radial pulse - Back Exam Back exam: Absent: tenderness - Neurological Exam Neurological exam: Present: alert, oriented X3 - Psychiatric Psychiatric exam: Present: normal affect, normal mood - Skin Skin exam: Present: warm, dry, normal color - Expanded Skin Exam 1 - PICC line at this site. I was able to draw back with good blood return. Flushed 20 mL through PICC line, no sign of infiltration. Patient denied pain with infusion. Dressing was changed and new cap applied to extension set. Course Vital Signs Temperature 98.4 F 07/14/19 07:17 Pulse Rate 74 07/14/19 07:17 Respiratory Rate 18 07/14/19 07:17 Blood Pressure 122/88 07/14/19 07:17 O2 Sat by Pulse Oximetry 99 07/14/19 07:17 Temperature 98.3 F 07/14/19 19:00 Pulse Rate 92 07/14/19 19:00 Respiratory Rate 20 07/14/19 19:00 Blood Pressure 141/91 07/14/19 19:00 O2 Sat by Pulse Oximetry 99 07/14/19 19:00 Oxygen Delivery Oxygen Delivery Room Air Medical Decision Making - MDM Narrative Medical decision making narrative: I spoke to Dr. Dominguez who states that he would like patient to be admitted under hospitalist with a consult to orthopedics. He states that he will evaluate patient on the floor later today. 1005: Patient accepted under hospitalist service at this time by Dr. Mccullough. - Medical Records Medical records reviewed: Yes I reviewed the patient's medical records. - Lab Data Lab results reviewed: Yes I reviewed the patient's lab results. Lab results narrative: Laboratory Last Values WBC 6.7 K/mcL (4.3-11.1) 07/14/19 08:05 RBC 4.55 M/mcL (4.19-5.50) 07/14/19 08:05 Hgb 12.0 g/dL (12.9-16.9) L 07/14/19 08:05 Hct 37.2 % (37.5-50.1) L 07/14/19 08:05 MCV 81.8 fL (83.0-100.0) L 07/14/19 08:05 MCH 26.4 pg (28.0-33.3) L 07/14/19 08:05 MCHC 32.3 g/dL (31.6-35.5) 07/14/19 08:05 RDW 15.0 % (11.5-14.5) H 07/14/19 08:05 Plt Count 208 K/mcL (140-400) 07/14/19 08:05 MPV 10.4 fL (9.4-12.4) 07/14/19 08:05 Immature Gran % 0.2 % (0-4) 07/14/19 08:05 Seg Neutrophils % 58.9 % 07/14/19 08:05 Lymphocytes % 27.5 % 07/14/19 08:05 Monocytes % 8.3 % 07/14/19 08:05 Eosinophils % 4.2 % 07/14/19 08:05 Basophils % 0.9 % 07/14/19 08:05 Neutrophils # 3.9 K/mcL (1.6-8.9) 07/14/19 08:05 Lymphocytes # 1.8 K/mcL (0.6-4.6) 07/14/19 08:05 Monocytes # 0.6 K/mcL (0.0-1.3) 07/14/19 08:05 Eosinophils # 0.3 K/mcL (0.0-0.6) 07/14/19 08:05 Basophils # 0.1 K/mcL (0.0-0.2) 07/14/19 08:05 ESR 28 mm/hr (0-10) H 07/14/19 08:05 Sodium 138 mEq/L (136-145) 07/14/19 08:05 Potassium 3.9 mEq/L (3.5-5.1) 07/14/19 08:05 Chloride 105 mEq/L (98-107) 07/14/19 08:05 Carbon Dioxide 26 mEq/L (23-29) 07/14/19 08:05 BUN 9 mg/dL (6-20) 07/14/19 08:05 Creatinine 0.88 mg/dL (0.70-1.30) 07/14/19 08:05 Est GFR ( Amer) > 60 (> 60) 07/14/19 08:05 Est GFR (Non-Af Amer) > 60 (> 60) 07/14/19 08:05 BUN/Creatinine Ratio 10 (6-26) 07/14/19 08:05 Glucose 87 mg/dL (70-105) 07/14/19 08:05 Calculated Osmolality 284 (280-300) 07/14/19 08:05 Calcium 9.1 mg/dL (8.6-10.3) 07/14/19 08:05 Result diagrams: 07/14/19 08:05 07/14/19 08:05 Lab Results 07/14/19 07/14/19 07/14/19 Range/Units 08:05 08:05 08:05 WBC 6.7 (4.3-11.1) K/mcL RBC 4.55 (4.19-5.50) M/mcL Hgb 12.0 L (12.9-16.9) g/dL Hct 37.2 L (37.5-50.1) % MCV 81.8 L (83.0-100.0) fL MCH 26.4 L (28.0-33.3) pg MCHC 32.3 (31.6-35.5) g/dL RDW 15.0 H (11.5-14.5) % Plt Count 208 (140-400) K/mcL MPV 10.4 (9.4-12.4) fL Immature Gran % 0.2 (0-4) % Seg Neutrophils % 58.9 % Lymphocytes % 27.5 % Monocytes % 8.3 % Eosinophils % 4.2 % Basophils % 0.9 % Neutrophils # 3.9 (1.6-8.9) K/mcL Lymphocytes # 1.8 (0.6-4.6) K/mcL Monocytes # 0.6 (0.0-1.3) K/mcL Eosinophils # 0.3 (0.0-0.6) K/mcL Basophils # 0.1 (0.0-0.2) K/mcL ESR 28 H (0-10) mm/hr Sodium 138 (136-145) mEq/L Potassium 3.9 (3.5-5.1) mEq/L Chloride 105 (98-107) mEq/L Carbon Dioxide 26 (23-29) mEq/L BUN 9 (6-20) mg/dL Creatinine 0.88 (0.70-1.30) mg/dL Est GFR ( Amer) > 60 (> 60) Est GFR (Non-Af Amer) > 60 (> 60) BUN/Creatinine Ratio 10 (6-26) Glucose 87 (70-105) mg/dL Calculated Osmolality 284 (280-300) Calcium 9.1 (8.6-10.3) mg/dL C-Reactive Protein < 5 (Less than 10) mg/L - Radiology Data Radiology results reviewed: Yes I reviewed the patient's radiology results. Finger X-Ray 07/14/19 08:25 IMPRESSION: There is amputation of the distal segment of the proximal segment, phalanx of the thumb, which per history is postsurgical. Small fragments, increased lucency noted of the distal portions of the bone may represent recent postsurgical changes, healing. Underlying infection cannot be excluded, and clinical correlation and serial follow up recommended. D/ / 07/14/2019 08:31:21 Thony Arnold MD [facility] Interpreting Provider: Thony Arnold MD
[2019-07-14 08:27] LABS: Basophils # 0.1 K/mcL (0.0-0.2); Basophils % 0.9 %; Eosinophils # 0.3 K/mcL (0.0-0.6); Eosinophils % 4.2 %; Hematocrit 37.2 % (37.5-50.1); Immature Granulocytes % 0.2 % (0-4); Lymphocytes # 1.8 K/mcL (0.6-4.6); Lymphocytes % 27.5 %; Mean Corpuscular HGB Conc 32.3 g/dL (31.6-35.5); Mean Corpuscular Hemoglobin 26.4 pg (28.0-33.3); Mean Corpuscular Volume 81.8 fL (83.0-100.0); Mean Platelet Volume 10.4 fL (9.4-12.4); Monocytes # 0.6 K/mcL (0.0-1.3); Monocytes % 8.3 %; Neutrophils # 3.9 K/mcL (1.6-8.9); Platelet Count 208 K/mcL (140-400); Red Blood Count 4.55 M/mcL (4.19-5.50); Segmented Neutrophils % 58.9 %; White Blood Count 6.7 K/mcL (4.3-11.1)
[2019-07-14 08:41] LABS: BUN/Creatinine Ratio 10 (6-26); Blood Urea Nitrogen 9 mg/dL (6-20); Calcium 9.1 mg/dL (8.6-10.3); Carbon Dioxide 26 mEq/L (23-29); Chloride 105 mEq/L (98-107); Glucose 87 mg/dL (70-105); Osmolality,Calculated 284 (280-300); Potassium 3.9 mEq/L (3.5-5.1); Sodium 138 mEq/L (136-145); eGFR For African Americans > 60 (> 60); eGFR For Non-African Americans > 60 (> 60)
[2019-07-14] MEDS ORDERED: Naloxone 0.4 MG/ML INJ IVP PRN ×2 (11:12→19:03)
[2019-07-14] MEDS ORDERED: hydrOXYzine pamoate 25 MG CAPSULE PO PRN ×2 (11:17→19:03)
--- NOTE | 2019-07-14 11:17 | Internal Med History&Physical ---
Date of Encounter: 07/14/19 Time of Encounter: 11:12 Internal Medicine - H&P: HPI Chief complaint: Picc line concern Admitted From: Home Plans for Post Hospital Care: Home History of present illness: Mr. Naranjo is a 39 year old male with past medical history of DVT, hypertension, liver and thyroid disease who recently had partial amputation of left thumb for osteomyelitis as well as debridement and irrigation for wound dihiscence on 06/16/19 came today with complaint of possible malfunctioning of PICC line as he felt that it got tugged out. Patient was evaluated in ER and was found to have functioning PICC line. Patient was getting IV vancomycin. He was discharged on vancomycin for 42 days and metronidazole by mouth on 06/16/19. He was getting IV antibiotics at home. Patient reported 2 year physician about one sutures falling off. Patient had x-ray which showed increased lucency of distal portion of the bone which could present postsurgical changes. Underlying infection could not be excluded. Patient without significantly elevated white count and ESR of 28. ER physician discussed case with orthopedics would like to admit the patient for further management. Patient without significant pain or any other complain. Past Med Surg Social Fam HX - Past Medical History Medical history: DVT, hyperlipidemia, hypertension, thyroid disease, other Additional medical history: IBS, RAYNAUDS Psychiatric history: anxiety - Past Surgical History Surgical History: cholecystectomy, orthopedic, other, other Additional surgical history: Sphincterotomy, left knee sx x 5, partial left thumb amputation. Right forefinger partially amputated - Social History Smoking Status: Former smoker Smokeless Tobacco Status: No Alcohol use: none Drug use: marijuana - Family History Mother Adopted: No Living Status: Hx Family Cardiac Disorders: No Hx Family Respiratory Disorders: No Hx Family Cancer: Yes Hx Family GI Disorders: No Hx Family Endocrine Disorder: No Hx Family Neuromuscular Disorders: No Hx Family Neurologic Disorders: No Hx Family HEENT Disorders: No Hx Family Autoimmune Disorders: No Internal Medicine - H&P: Meds Tamsulosin HCl [Flomax] 0.4 mg PO BID 06/15/19 [History] hydrOXYzine HCl [Hydroxyzine HCl] 25 mg PO TID PRN 06/15/19 [History] Vancomycin/0.9 % Sod Chloride [Vanco 1.5 gm/250 ml-0.9% NaCl] 1.5 gm IV BID 42 Days #84 plast..bag 06/16/19 [Rx] Allergy/AdvReac Type Severity Reaction Status Date / Time No Known Allergies Allergy Verified 06/14/19 08:02 All Systems PM: A 10-system review of systems was performed and is negative for pertinent findings except as documented above in the HPI. - Constitutional Vitals: Temp Pulse Resp BP Pulse Ox 98.4 F 82 18 131/93 98 07/14/19 07:17 07/14/19 10:29 07/14/19 10:29 07/14/19 10:29 07/14/19 10:29 Exam: Constitutional: Vitals as noted. Conversant. No Apparent Distress. Eyes : Sclera white, conjunctiva clear, no lid lag, PEARLA. ENT : Grossly normal hearing. Oropharyngeal exam unremarkable. Moist mucus membranes. No JVD, no cervical lymphadenopathy. no thyromegaly or mass. Respiratory : Clear to auscultation bilaterally. No accessory muscle use, rales, rhonchi or wheezes Cardiovascular : RRR, +S1, +S2. no murmur, gallop, rubs. No chest wall tenderness, Rt arm with picc line GI/Abdominal : Soft, Non-tender, Non-distended, normal bowel sounds, soft, no peritoneal signs. no orgenomegaly or mass appreciated. no hernia. Musculoskeletal: partially amputated Lt thumb with some sutures in place with open wound, no significant drainage. no calf tenderness. Neurological: AO X3, CN II-XII grossly intact, grossly normal motor and sensory exam. Skin: as above Internal Med - H&P Results - Labs CBC & Chem 7: 07/14/19 08:05 07/14/19 08:05 Labs: Short CBC 07/14/19 Range/Units 08:05 WBC 6.7 (4.3-11.1) K/mcL Hgb 12.0 L (12.9-16.9) g/dL Hct 37.2 L (37.5-50.1) % Plt Count 208 (140-400) K/mcL Neutrophils # 3.9 (1.6-8.9) K/mcL BMP 07/14/19 08:05 Sodium 138 Potassium 3.9 Chloride 105 Carbon Dioxide 26 BUN 9 Creatinine 0.88 Glucose 87 Calcium 9.1 - Impressions ITS Impressions Finger X-Ray 07/14/19 08:25 IMPRESSION: There is amputation of the distal segment of the proximal segment, phalanx of the thumb, which per history is postsurgical. Small fragments, increased lucency noted of the distal portions of the bone may represent recent postsurgical changes, healing. Underlying infection cannot be excluded, and clinical correlation and serial follow up recommended. D/ / 07/14/2019 08:31:21 Thony Arnold MD / [facility] Interpreting Provider: Thony Arnold MD - Assessment and Plan (1) Osteomyelitis Current Visit: No Status: Acute Assessment and plan: Patient with history of osteomyelitis of right thumb associated with some postop complication of dehiscence We will continue patient on his home vancomycin for now. Unclear whether patient was supposed to be currently on metronidazole and ceftriaxone along with vancomycin. We will confirm with pharmacy. Discussed case with orthopedist. May need amputation. We will keep nothing by mouth for now. Qualifiers: Osteomyelitis type: acute hematogenous Osteomyelitis location: hand Laterality: unspecified laterality Qualified Code(s): M86.049 - Acute hematogenous osteomyelitis, unspecified hand (2) Wound dehiscence Current Visit: Yes Status: Acute Assessment and plan: Patient has some sutures still in the wound with nonclosure of the wound. Orthopedist to see the patient later today. - Time Spent With Patient Total time spent is greater than 50% in coordination of care (as documented) at patient's floor/unit and/or counseling patient:
[2019-07-14] MEDS ORDERED: SOD CHLORIDE IV SCH (11:30)
[2019-07-14] MEDS ORDERED: VANCOMYCIN IV SCH (11:30)
[2019-07-14] MEDS ORDERED: [UNRECOGNIZED DRUG - OTHER] IV SCH (11:30)
[2019-07-14 11:36] LABS: C-Reactive Protein < 5 mg/L (Less than 10)
[2019-07-14] MEDS ORDERED: cefTRIAXone 2,000 MG in Water for inj. (sterile) 20 ML IVP SCH (13:00)
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
[2019-07-14] MEDS ORDERED: Ondansetron 4 MG/2 ML VIAL IVP PRN ×2 (14:36→19:03)
[2019-07-14] MEDS ORDERED: *HR* LORazepam 2 MG/ML VIAL IVP ONE ×2 (14:36→16:10)
[2019-07-14] MEDS ORDERED: metroNIDAZOLE 500 MG TABLET PO SCH ×2 (15:00→21:00)
--- NOTE | 2019-07-14 15:47 | Anesthesia Evaluation PreOp ---
Date of Encounter: 07/14/19 Time of Encounter: 15:45 - Past History Planned Operation: Left thumb Amputation Cardiac History: HTN, Hyperlipidemia Pulmonary History: Smoker [employer] History: Denies Any Significant HX Other Medical History: Thyroid, GERD, Other (Buerger's dz) Anesthesia History: No Prior Anesthetic Complications, Problems (L knee, thumb, chepe, partial finger amp, I&D left thumb) Alcohol Use: none Drug use: marijuana Medications and Allergies Tamsulosin HCl [Flomax] 0.4 mg PO BID 06/15/19 [History] hydrOXYzine HCl [Hydroxyzine HCl] 25 mg PO TID PRN 06/15/19 [History] Ceftriaxone Na/Dextrose,Iso [Ceftriaxone 2 gm-D5w Bag] 2,000 mg IV Q24H 07/14/19 [History] Vancomycin/0.9 % Sod Chloride [Vanco 1.25 gm/250 ml-0.9% NaCl] 1,250 mg IV Q12H 07/14/19 [History] metroNIDAZOLE [Flagyl] 500 mg PO TID 07/14/19 [History] Allergy/AdvReac Type Severity Reaction Status Date / Time No Known Allergies Allergy Verified 06/14/19 08:02 - Meds/Allergy Pre-op Review Medications Reviewed: Yes Allergies Reviewed: Yes Beta Blockers on Current Med List: No Anesthesia Results - Labs 07/14/19 08:05 07/14/19 08:05 Anesthesia Exam Vital Signs/O2 Sat, Most Current Temp Pulse Resp BP Pulse Ox 98.3 F 54 14 144/84 100 07/14/19 15:04 07/14/19 15:04 07/14/19 15:04 07/14/19 15:04 07/14/19 15:04 Weight: 73kg NPO (# of Hours): >8 - HEENT Pupil (Motor): Pupils equal, EOMI Mallampati: III Oral Opening: Greater than 3 - [employer] LOC: Oriented [employer] Motor: Normal RUE, Normal LUE, Normal RLE, Normal LLE, Normal Face [employer] Sensory: Normal: RUE, LUE, RLE, LLE, Face - Cardiac Rhythm: Regular - Pulmonary Breath Sounds: bilateral Clear Respiratory Effort: Symmetrical Anesthesia Assess/Plan ASA Score: 3 Level of consciousness: Cooperative Anesthetic Plan: General Monitoring Plan: Standard Monitors Recovery Plan: PACU
[2019-07-14] MEDS ORDERED: Ondansetron 4 MG/2 ML VIAL ONE (16:32)
[2019-07-14] MEDS ORDERED: *HR* FentaNYL (PF) 100 MCG/2 ML VIAL ONE (16:32)
[2019-07-14] MEDS ORDERED: *HR* Midazolam HCl 2 MG/2 ML VIAL ONE (16:32)
[2019-07-14] MEDS ORDERED: Lidocaine -MPF 2% 2 ML VIAL ONE (16:32)
[2019-07-14] MEDS ORDERED: *HR* Propofol 200 MG/20 ML VIAL IVP ONE (16:32)
[2019-07-14] MEDS ORDERED: *HR* OxyCODONE Immed Rel 5 MG TABLET PO PRN (16:55)
[2019-07-14] MEDS ORDERED: *HR* HYDROmorphone (PF) 1 MG/ML SYRINGE IVP PRN (16:55)
[2019-07-14] MEDS ORDERED: *HR* Promethazine 25 MG/ML VIAL IVP PRN (16:55)
[2019-07-14] MEDS ORDERED: *HR* Meperidine 25 MG/ML SYRINGE IVP PRN (16:55)
[2019-07-14] MEDS ORDERED: Ondansetron 4 MG/2 ML VIAL IVP ONE (16:55)
[2019-07-14] MEDS ORDERED: *HR* Midazolam HCl 2 MG/2 ML VIAL IVP PRN (16:55)
[2019-07-14] MEDS ORDERED: Bupivacaine/EPI 1:200k 0.5%PF 10 ML VIAL ONE (17:07)
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
[2019-07-14] MEDS ORDERED: *HR* PHENYLEPHRINE 1,000 MCG/10 ML SYRINGE IVP ONE (17:37)
--- NOTE | 2019-07-14 18:25 | Orthopedic Operative Note ---
Date of procedure: 07/14/19 Procedure: OPERATIVE REPORT SURGEON: Amos Dominguez MD PREOPERATIVE DIAGNOSIS: Left thumb osteomyelitis POSTOPERATIVE DIAGNOSIS: Left thumb osteomyelitis PROCEDURE: Amputation of the left thumb through the metacarpophalangeal joint ANESTHESIA: Gen. anesthesia SPECIMENS: Left thumb in formalin; the wound was swabbed for aerobic and anaerobic cultures PREOPERATIVE NOTE The surgical plan was reviewed with the patient. The risks, benefits, alternatives, and potential complications of this procedure were discussed with the patient including injury to veins, arteries, nerves, tendons, ligaments, and bone. Also discussed were the risks of infection, bleeding, pain, blood clots, the possible need for a blood transfusion, the possible need for further procedures, heart attack, stroke, and . Additional risks include the need for further debridements or amputations. All of this was explained in simple terms, and the patient verbalized understanding and wished to proceed. Consent was given to proceed with surgery. PROCEDURE: The patient was seen in the preoperative holding area where the identify and the consent were confirmed. The left thumb was marked. Final questions were answered. The patient was brought back to the operating room and placed supine on the operating room table. A huddle was performed with the patient and all vital surgical team members confirming patient identity, the correct procedure, and the correct operative site. Gen. anesthesia was administered. The operative extremity was prepped and draped in the usual sterile fashion. A surgical time out was performed immediately preceding the incision with all personnel in the operating room to confirm patient identity, the correct operative site and extremity, correct radiographic studies, availability of appropriate surgical equipment, and agreement on the planned procedure. The tourniquet was inflated without exsanguination. A fishmouth incision was made at the metacarpophalangeal joint region. Full-thickness flaps were elevated. The digital arteries were cauterized. The flexor and extensor tendons were taken down and the metacarpophalangeal joint was opened and the thumb was so sequelae disarticulated. On the back table the wound dehiscence was swabbed for aerobic and anaerobic cultures. The thumb itself was placed in formalin. The residual wound bed was healthy in appearance. The articular cartilage of the metacarpal head was clean and without injury. The wound was copiously irrigated with 3 L of saline and loosely closed over a small [place] drain. A soft, sterile dressing was applied. The instrument, sponge, and needle counts were correct after wound closure. POST OPERATIVE PLAN: Continue IV antibiotics per the primary team. Given the ablative nature of the procedure, I do not feel that he would need IV antibiotics upon discharge. Despite discharge on an oral antibiotic. Follow-up with me in the office in 2 weeks for stitch removal. Was there an engineer first assistant present: No Estimated blood loss (cc): 1
--- NOTE | 2019-07-14 18:43 | Anesthesia Evaluation Post Op ---
Date of Encounter: 07/14/19 Time of Encounter: 18:45 - Vital Signs Vital Signs: Vital Signs/O2 Sat/Glucose, Most Current Temp Pulse Resp BP Pulse Ox 07/14/19 18:30 101 22 126/80 99 07/14/19 18:20 98 24 105/64 100 07/14/19 18:10 97.8 F 113 20 99/70 100 07/14/19 15:04 98.3 F 54 14 144/84 100 - Lungs Lungs: Clear Ascult./Percussion - Airway Airway: Non-obstructed - Cardiovascular Regular Rate - Mental Status Mental Status: Alert & Oriented, Answers Appropriately - Pain Pain Scale: 0 - Nausea Vomiting Nausea Vomiting: Not Present - Hydration Hydration: Ice chips - Discharge PostOp Status: Transfer Patient to floor
[2019-07-14 19:05] VITALS: BP 141/91
[2019-07-14] MEDS ORDERED: Aminoglycoside Consult 1 EACH MC ONE (20:39)
[2019-07-15] MEDS ORDERED: cefTRIAXone 2,000 MG in Water for inj. (sterile) 20 ML IVP SCH (13:00)
== END 2019-07-14 20:40 | disposition left against medical advice (07) ==
LOC: 3ANU 07:15 → EMEROOARM 07:15 → 3ANU 10:48
PROVIDERS: ADMIT Internal Medicine; ATTEND Internal Medicine

== ENCOUNTER 2019-07-17 01:56 | Inpatient (IN) ==
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
[2019-07-17 02:59] LABS: Basophils # 0.1 K/mcL (0.0-0.2); Eosinophils # 0.3 K/mcL (0.0-0.6); Eosinophils % 5.2 %; Hematocrit 34.7 % (37.5-50.1); Hemoglobin 10.9 g/dL (12.9-16.9); Lymphocytes # 1.8 K/mcL (0.6-4.6); Mean Corpuscular HGB Conc 31.4 g/dL (31.6-35.5); Mean Corpuscular Volume 82.8 fL (83.0-100.0); Mean Platelet Volume 10.3 fL (9.4-12.4); Monocytes # 0.4 K/mcL (0.0-1.3); Monocytes % 7.4 %; Neutrophils # 2.6 K/mcL (1.6-8.9); Platelet Count 177 K/mcL (140-400); Red Blood Count 4.19 M/mcL (4.19-5.50); Red Cell Distribution Width 15.1 % (11.5-14.5); Segmented Neutrophils % 51.4 %
[2019-07-17 03:18] LABS: BUN/Creatinine Ratio 13 (6-26); Blood Urea Nitrogen 14 mg/dL (6-20); C-Reactive Protein 7 mg/L (Less than 10); Carbon Dioxide 27 mEq/L (23-29); Chloride 105 mEq/L (98-107); Glucose 96 mg/dL (70-105); Osmolality,Calculated 288 (280-300); Potassium 3.6 mEq/L (3.5-5.1); Sodium 139 mEq/L (136-145); eGFR For African Americans > 60 (> 60); eGFR For Non-African Americans > 60 (> 60)
[2019-07-17] MEDS ORDERED: Piperacillin/Tazobactam 3.375 GM in 0.9 % Sodium Chloride Mini Bag 100 ML IVPB ONE (04:07)
[2019-07-17] MEDS ORDERED: 0.9 % Sodium Chloride 1,000 ML IVC ONE (04:39)
--- NOTE | 2019-07-17 04:45 | Emergency Department Note ---
Disposition Clinical Impression: Cellulitis, finger Qualifiers: Laterality: right Qualified Code(s): L03.011 - Cellulitis of right finger Disposition: Home, Self-Care Condition: Fair Referrals: NONE,PCP [Primary Care Provider] - Forms: ED Satisfaction Letter Time of Disposition: 04:46 General Adult HPI - General Chief complaint: ED Extremity Problem,Nontraumatic Stated complaint: Rt Middle Finger Time Seen by Provider: 07/17/19 02:00 Source: patient, EMS Mode of arrival: EMS Limitations: no limitations, language barrier - History of Present Illness Pain Scale: 10 - Related Data Home Medications Medication Instructions Recorded Confirmed Tamsulosin HCl [Flomax] 0.4 mg PO BID 06/15/19 07/17/19 hydrOXYzine HCl [Hydroxyzine HCl] 25 mg PO TID PRN 06/15/19 07/17/19 Ceftriaxone Na/Dextrose,Iso 2,000 mg IV Q24H 07/14/19 07/17/19 [Ceftriaxone 2 gm-D5w Bag] Vancomycin/0.9 % Sod Chloride 1,250 mg IV Q12H 07/14/19 07/17/19 [Vanco 1.25 gm/250 ml-0.9% NaCl] metroNIDAZOLE [Flagyl] 500 mg PO TID 07/14/19 07/17/19 Allergies Allergy/AdvReac Type Severity Reaction Status Date / Time No Known Allergies Allergy Verified 07/17/19 02:20 Constitutional: Reports: as per HPI, fever, chills, other (General malaise). Denies: weakness, weight change Eyes: Denies: eye pain, eye discharge, vision change ENT ED: Denies: ear pain, throat pain, dental pain, hearing loss, epistaxis, congestion, dysphagia Cardiovascular: Denies: chest pain, palpitations, dyspnea on exertion, edema, syncope Respiratory: Denies: cough, dyspnea, wheezes, hemoptysis, stridor Gastrointestinal: Denies: abdominal pain, nausea, vomiting, diarrhea, constipation, hematemesis, melena, hematochezia Genitourinary: Denies: urgency, dysuria, frequency, hematuria Musculoskeletal: Reports: arthralgia. Denies: back pain, neck pain, myalgia Integumentary: Reports: as per HPI, other (Tenderness and erythema to midline right upper extremity). Denies: rash, abrasion, lesions Neurological: Denies: headache, weakness, numbness, paresthesias, confusion, abnormal gait, vertigo Psychiatric: Denies: anxiety, depression, suicidal thoughts, homicidal thoughts, auditory hallucinations, visual hallucinations Endocrine: Denies: fatigue Hematological/Lymphatic: Denies: easy bleeding, easy bruising Allergic/Immunologic: Denies: facial swelling, urticaria Past Medical History - Past Medical History Medical history: Reports: DVT, hyperlipidemia, hypertension, thyroid disease, other Surgical history: Reports: cholecystectomy, orthopedic, other, other Psychiatric history: Reports: anxiety - Social History Smoking Status: Former smoker Smokeless Tobacco Status: No Alcohol use: Reports: none Drug use: Reports: marijuana Physical Exam - General Limitations: no limitations, language barrier General appearance: alert, in no apparent distress Course Vital Signs Temperature 98.8 F 07/17/19 02:10 Pulse Rate 70 07/17/19 02:10 Respiratory Rate 18 07/17/19 02:10 Blood Pressure 104/69 07/17/19 02:10 O2 Sat by Pulse Oximetry 99 07/17/19 02:10 Temperature 98.8 F 07/17/19 02:10 Pulse Rate 60 07/17/19 03:37 Respiratory Rate 20 07/17/19 03:37 Blood Pressure 102/87 07/17/19 03:37 O2 Sat by Pulse Oximetry 98 07/17/19 03:37 Oxygen Delivery Oxygen Delivery Room Air Medical Decision Making - Lab Data Result diagrams: 07/17/19 02:35 07/17/19 02:35 Lab Results 07/17/19 07/17/19 07/17/19 Range/Units 02:35 02:35 02:35 WBC 5.0 (4.3-11.1) K/mcL RBC 4.19 (4.19-5.50) M/mcL Hgb 10.9 L (12.9-16.9) g/dL Hct 34.7 L (37.5-50.1) % MCV 82.8 L (83.0-100.0) fL MCH 26.0 L (28.0-33.3) pg MCHC 31.4 L (31.6-35.5) g/dL RDW 15.1 H (11.5-14.5) % Plt Count 177 (140-400) K/mcL MPV 10.3 (9.4-12.4) fL Immature Gran % 0.0 (0-4) % Seg Neutrophils % 51.4 % Lymphocytes % 35.0 % Monocytes % 7.4 % Eosinophils % 5.2 % Basophils % 1.0 % Neutrophils # 2.6 (1.6-8.9) K/mcL Lymphocytes # 1.8 (0.6-4.6) K/mcL Monocytes # 0.4 (0.0-1.3) K/mcL Eosinophils # 0.3 (0.0-0.6) K/mcL Basophils # 0.1 (0.0-0.2) K/mcL ESR 20 H (0-10) mm/hr Sodium 139 (136-145) mEq/L Potassium 3.6 (3.5-5.1) mEq/L Chloride 105 (98-107) mEq/L Carbon Dioxide 27 (23-29) mEq/L BUN 14 (6-20) mg/dL Creatinine 1.06 (0.70-1.30) mg/dL Est GFR ( Amer) > 60 (> 60) Est GFR (Non-Af Amer) > 60 (> 60) BUN/Creatinine Ratio 13 (6-26) Glucose 96 (70-105) mg/dL Calculated Osmolality 288 (280-300) Lactic Acid (0.5-2.2) mmol/L Calcium 9.0 (8.6-10.3) mg/dL C-Reactive Protein 7 (Less than 10) mg/L 07/17/19 Range/Units 02:35 WBC (4.3-11.1) K/mcL RBC (4.19-5.50) M/mcL Hgb (12.9-16.9) g/dL Hct (37.5-50.1) % MCV (83.0-100.0) fL MCH (28.0-33.3) pg MCHC (31.6-35.5) g/dL RDW (11.5-14.5) % Plt Count (140-400) K/mcL MPV (9.4-12.4) fL Immature Gran % (0-4) % Seg Neutrophils % % Lymphocytes % % Monocytes % % Eosinophils % % Basophils % % Neutrophils # (1.6-8.9) K/mcL Lymphocytes # (0.6-4.6) K/mcL Monocytes # (0.0-1.3) K/mcL Eosinophils # (0.0-0.6) K/mcL Basophils # (0.0-0.2) K/mcL ESR (0-10) mm/hr Sodium (136-145) mEq/L Potassium (3.5-5.1) mEq/L Chloride (98-107) mEq/L Carbon Dioxide (23-29) mEq/L BUN (6-20) mg/dL Creatinine (0.70-1.30) mg/dL Est GFR ( Amer) (> 60) Est GFR (Non-Af Amer) (> 60) BUN/Creatinine Ratio (6-26) Glucose (70-105) mg/dL Calculated Osmolality (280-300) Lactic Acid 0.4 L (0.5-2.2) mmol/L Calcium (8.6-10.3) mg/dL C-Reactive Protein (Less than 10) mg/L Attestation Statement - Attestation Attestation: I reviewed the residents documentation and agree with the residents assessment and plan of care. I have personally had face to face time with the patient. (Brief History, Brief Exam, and MDM) I personally supervised and was present for the reyes/critical portions of the following procedures completed by the resident: 39 year old male presents to the eD with complaints of increased pain to his right middle finger and most recenty have been treateed for osteo and had a thumbb amputation secondary to these infections. PAtient left AMA last time before he could recieve therpay for his righ middle finger. XR does show chornic nature to his finger but cannot ohterise rule out osteo. We have discussed case with Dr. Dominguez who will see in consutl with admission to medicine and have start IVF and IV ABX.
[2019-07-17] MEDS ORDERED: Naloxone 0.4 MG/ML INJ IVP PRN ×2 (06:22→20:49)
--- NOTE | 2019-07-17 06:46 | Internal Med History&Physical ---
Date of Encounter: 07/17/19 Time of Encounter: 05:30 Internal Medicine - H&P: HPI Chief complaint: Right long finger pain/swelling Admitted From: Home Plans for Post Hospital Care: Home History of present illness: Mr. Naranjo is a 39 year old male with past medical history significant for hypertension, hyperlipidemia, thyroid disease, DVT, liver disease, and anxiety presents for complaints of worsening pain and swelling to his right long finger over the past few days. Reports the pain in his finger is intermittent and currently is not as severe as it was when he first came in and rates it at a 4/10. Has been being treated for dolan to his bilateral hands and fingers and most recently had left thumb amputation secondary to osteomyelitis on 07/14/[address] Bender and left [facility] shortly after. Has been receiving home antibiotics for osteomyelitis as well with PICC line, however reports he has only had 1 dose of IV vancomycin since leaving [facility] on 07/14/2019 because he did not think his PICC line was working correctly. In addition to the pain and swelling to his right long finger he also complains of generalized fatigue, 2 episodes of nausea and vomiting, and feeling like he has a fever although he has not confirmed it with an actual reading at home. ER obtained an x-ray of the right third finger which showed unchanged appearance of the third middle phalangeal displaced intra-articular fracture extending to the DIP joint with concomitant angulation of the distal phalanx, eroded appearance of the distal phalanx tuft is also unchanged, correlate for clinical signs of infection as osteomyelitis and septic joint could be present in the appropriate context, and index finger distal phalanx amputation. ER called on-call orthopedic surgeon Dr. Bender who is familiar with patient and requested admission to medicine and will see in consultation this morning. While in the ER the patient received IV fluids and IV antibiotics. Patient currently denies any headache, chest pain, shortness of breath, abdominal pain, bowel or bladder changes. He denies following up with any provider since leaving the hospital [facility] on 07/14/2019 and his left thumb dressing is still dry and intact and has not been changed since surgery on 07/14/2019. Past Med Surg Social Fam HX - Past Medical History Medical history: DVT, hyperlipidemia, hypertension, thyroid disease, other Additional medical history: IBS, RAYNAUDS Psychiatric history: anxiety - Past Surgical History Surgical History: cholecystectomy, orthopedic, other, other Additional surgical history: Sphincterotomy, left knee sx x 5, partial left thumb amputation. Right forefinger partially amputated - Social History Smoking Status: Former smoker Smokeless Tobacco Status: No Alcohol use: none Drug use: marijuana - Family History Mother Adopted: No Living Status: Hx Family Cardiac Disorders: No Hx Family Respiratory Disorders: No Hx Family Cancer: Yes Hx Family GI Disorders: No Hx Family Endocrine Disorder: No Hx Family Neuromuscular Disorders: No Hx Family Neurologic Disorders: No Hx Family HEENT Disorders: No Hx Family Autoimmune Disorders: No Internal Medicine - H&P: Meds Tamsulosin HCl [Flomax] 0.4 mg PO BID 06/15/19 [History] hydrOXYzine HCl [Hydroxyzine HCl] 25 mg PO TID PRN 06/15/19 [History] Ceftriaxone Na/Dextrose,Iso [Ceftriaxone 2 gm-D5w Bag] 2,000 mg IV Q24H 07/14/19 [History] Vancomycin/0.9 % Sod Chloride [Vanco 1.25 gm/250 ml-0.9% NaCl] 1,250 mg IV Q12H 07/14/19 [History] metroNIDAZOLE [Flagyl] 500 mg PO TID 07/14/19 [History] Allergy/AdvReac Type Severity Reaction Status Date / Time No Known Allergies Allergy Verified 07/17/19 02:20 All Systems PM: A 10-system review of systems was performed and is negative for pertinent findings except as documented above in the HPI. - Constitutional Vitals: Temp Pulse Resp BP Pulse Ox 97.7 F 53 16 128/83 99 07/17/19 05:13 07/17/19 05:13 07/17/19 05:13 07/17/19 05:13 07/17/19 05:13 Exam: General: Alert and oriented Skin:Normal color, no rash HEENT:EOM, pupils equal, round and reactive. Cardiovascular:Normal S1 & S2, no rubs, murmurs or gallops. No JVD. Pulse regular. Lungs:Normal breath sounds, no wheezes or crackles. Abdomen:Soft, non-tender, no rigidity. Extremities:Left thumb dressing dry and intact. Right long finger deformity and swelling noted, tenderness to finger joints with movement. Chronic skin changes noted to bilateral hands. Otherwise no deformity, no edema or tenderness, no joint swelling or clubbing to other extremities. Neurological:Normal cognition and motor skills. Pulses:Carotid and radial pulses normal +2. Rest of the physical exam is non contributory. Internal Med - H&P Results - Labs CBC & Chem 7: 07/17/19 02:35 07/17/19 02:35 Labs: Short CBC 07/17/19 Range/Units 02:35 WBC 5.0 (4.3-11.1) K/mcL Hgb 10.9 L (12.9-16.9) g/dL Hct 34.7 L (37.5-50.1) % Plt Count 177 (140-400) K/mcL Neutrophils # 2.6 (1.6-8.9) K/mcL BMP 07/17/19 02:35 Sodium 139 Potassium 3.6 Chloride 105 Carbon Dioxide 27 BUN 14 Creatinine 1.06 Glucose 96 Calcium 9.0 - Impressions ITS Impressions Hand X-Ray 07/17/19 03:06 IMPRESSION: Unchanged appearance of the 3rd middle phalangeal displaced intra-articular fracture extending to the DIP joint with concomitant angulation of the distal phalanx. Eroded appearance of the distal phalanx tuft is also unchanged. Correlate for clinical signs of infection as osteomyelitis and septic joint could be present in the appropriate context. Index finger distal phalanx amputation. D/ / Felton Moeller / Felton Moeller Interpreting Provider: Felton Moeller - Assessment and Plan (1) Finger pain, right Current Visit: Yes Status: Acute Assessment and plan: Reports worsening pain and swelling to his right long finger over past few days associated with 2 episodes of nausea and vomiting, feeling like he has fever but no confirmed readings, and generalized fatigue. Has been being treated for dolan to his bilateral hands and osteomyelitis for which he has been on home IV antibiotics but has had only one dose of IV vancomycin since leaving [facility] on 07/14/2019 after having left thumb amputation. ER obtained an x-ray of the right third finger which showed unchanged appearance of the third middle phalangeal displaced intra-articular fracture extending to the DIP joint with concomitant angulation of the distal phalanx, eroded appear ance of the distal phalanx tuft is also unchanged, correlate for clinical signs of infection as osteomyelitis and septic joint could be present in the appropriate context, and index finger distal phalanx amputation. ER called on-call orthopedic surgeon Dr. Bender who is familiar with patient and requested admission to medicine and will see in consultation this morning. ER started patient on vancomycin and Zosyn, will continue same. Blood cultures pending. Nothing by mouth. (2) ESR raised Current Visit: Yes Status: Acute Assessment and plan: Elevated at 20, likely secondary to infection. Was elevated during previous admission at 28. Plan as stated above. (3) Low hemoglobin Current Visit: Yes Status: Acute Assessment and plan: Hemoglobin decreased on admission at 10.9. Hemoglobin during recent admission was 12.0. Denies any known blood loss Repeat labs ordered. (4) Hypertension Current Visit: Yes Status: Chronic Assessment and plan: Continue home medications once verified. Qualifiers: Hypertension type: unspecified Qualified Code(s): I10 - Essential (primary) hypertension - Time Spent With Patient Total time spent is greater than 50% in coordination of care (as documented) at patient's floor/unit and/or counseling patient:
--- NOTE | 2019-07-17 07:32 | Orthopedics Progress Note ---
Date of Encounter: 07/17/19 Time of Encounter: 07:21 Subjective Interval history: S: This patient was seen on Wednesday due to left thumb osteomyelitis and he underwent thumb amputation. He subsequently left AGAINST MEDICAL ADVICE that evening. At that time he was also noted to have a fracture of the right long finger middle phalangeal condyle with deformity. There is overlying ulceration in this area. He returns back to the emergency department and was admitted due to worsening pain of the right long finger. On my evaluation this morning the patient indicates that the pain as achy and radiating to the base of the right long finger, worse with use and movement or any activity. He does have subjective feelings of illness. O: Afebrile on the vital signs are stable Right long finger is moderately swollen diffusely with ulceration over the radial aspect of the distal interphalangeal joint as previously described. At the base of the ulceration there is granulation tissue, however the ulcer can be probed down to the bone quite easily upon further inspection. There is diffuse tenderness of the long finger. He was able to grossly flex and extend the digit with some limitation due to pain and swelling. The fingertips are all grossly sensate and well-perfused, and the radial artery pulse is 2+. The left thumb amputation site is healing nicely without any concerns for infect ion and no drainage. Diagnostic Imaging: I did personally review and interpret repeat x-ray of the right long finger does redemonstrate the condylar fracture on the radial side of P2 with significant displacement and bony erosion, particularly at the distal phalanx A: Recent left thumb amputation prostate myelitis. Presumed osteomyelitis of the right long finger with fracture and overlying ulceration P: I did have a long discussion with the patient regarding the diagnosis. The ulceration does communicate deep with the fracture of the middle phalanx, and I do feel that given the overall clinical scenario that there is osteomyelitis in this region. I do not feel that salvage of the long finger tip is practical or possible. My recommendation is to proceed with debridement and irrigation of the right long finger with amputation through the middle phalanx. The risks discussed included but were not limited to stiffness, bleeding, infection, blood clots, damage to neurovascular structures, tendons, ligaments, and bone. Also discussed was the risk of continued symptoms and possible need for further procedures. I did discuss the anesthesia risks including stroke, heart attack, and . I did discuss the reasonable, foreseeable postoperative course with the patient. The patient did wish to proceed and consent was obtained. We will proceed with surgery today. Objective Vital signs: Vital Signs Temp Pulse Resp BP Pulse Ox 07/17/19 06:51 97.7 F 52 16 132/87 100 07/17/19 05:13 97.7 F 53 16 128/83 99 07/17/19 04:55 98.8 F 60 20 106/74 98 07/17/19 03:37 60 20 102/87 98 07/17/19 02:10 98.8 F 70 18 104/69 99 Intake and Output 07/16/19 07/16/19 07/17/19 15:59 23:59 07:59 Intake Total 1250 / 1250 Output Total 0 / 0 Balance 1250 / 1250 Intake: IV Fluids 1250 / 1250 0.9 % Sodium Chloride 1,000 ML 1000 / 1000 @ 999 mls/hr IVC .Q1H1M ONE Rx# :[id number] Vancocin 1,000 MG In 0.9 % 250 / 250 Sodium Chloride 250 ML @ 167 mls/hr IVPB ONCE ONE Rx#: [id number] Output: Urine 0 / 0 Other: Weight 68.8 kg Patient Weight 07/17/19 23:59 Weight 68.8 kg - Labs CBC & BMP: 07/17/19 02:35 07/17/19 02:35 Labs: Abnormal lab results Hgb 10.9 g/dL (12.9-16.9) L 07/17/19 02:35 Hct 34.7 % (37.5-50.1) L 07/17/19 02:35 MCV 82.8 fL (83.0-100.0) L 07/17/19 02:35 MCH 26.0 pg (28.0-33.3) L 07/17/19 02:35 MCHC 31.4 g/dL (31.6-35.5) L 07/17/19 02:35 RDW 15.1 % (11.5-14.5) H 07/17/19 02:35 ESR 20 mm/hr (0-10) H 07/17/19 02:35 Lactic Acid 0.4 mmol/L (0.5-2.2) L 07/17/19 02:35 Consult Discharge Plan - Plan Referrals: NONE,PCP [Primary Care Provider] -
[2019-07-17] MEDS ORDERED: *HR* LORazepam 2 MG/ML VIAL IVP ONE ×2 (09:01→17:21)
--- NOTE | 2019-07-17 09:46 | Internal Med Progress Note ---
Hospitalist Progress Note - Encounter Date of Encounter: 07/17/19 Time of Encounter: 09:44 - Subjective Interval History: I have seen and evaluated the patient at bedside. Patient reported feeling well, but reports pain on his right middle finger. denies chest pain, nausea or vomiting. - Exam Vitals: Temp Pulse Resp BP Pulse Ox 97.7 F 52 16 132/87 100 07/17/19 06:51 07/17/19 06:51 07/17/19 06:51 07/17/19 06:51 07/17/19 06:51 Exam: Vitals: Reviewed General: Alert and oriented x4. In mild distress due to pain on right middle finger. Cardiovascular: RRR, normal S1 & S2, no rubs, murmurs or gallops. Lungs: CTA b/l, no wheezes or crackles. Abdomen: Soft, non-tender, no rigidity. NABS in all 4 quadrants. Extremities: Left thumb dressing dry and intact. Right long finger deformity and swelling noted, tenderness to finger joints with movement. Chronic skin changes noted to bilateral hands. Neurological: Normal cognition and motor skills. Rest of the physical exam is non contributory. - Assessment and Plan (1) Osteomyelitis Current Visit: Yes Status: Suspected Assessment and Plan: fracture of the right long finger middle phalangeal condyle with deformity. There is overlying ulceration in this area. Plan c/w broad spectrum IV antibiotics patient scheduled for surgery today ortho recommendations appreciated norco 5/325mg 1tab q6hrs added for pain control (2) BPH (benign prostatic hyperplasia) Current Visit: No Status: Chronic Assessment and Plan: will resume tamsulosin 0.4mg/PO daily. (3) FRANCISCO (generalized anxiety disorder) Current Visit: No Status: Chronic Assessment and Plan: On hydroxyzine 25mg/PO TID. DVT Prophylaxis: Intermittent pneumatic compression for dvt prophylaxis - Summary of Assessment and Plan Summary of Assessment and Plan: patient to remain in the hospital scheduled for surgery of right long finger today. - Time Spent with Patient Total time spent is greater than 50% in coordination of care (as documented) at patient's floor/unit and/or counseling patient: Greater than 35 minutes (40) Plan of Care Discussed with: patient (and the nurse.) Internal Medicine: Result - Labs CBC & Chem 7: 07/17/19 02:35 07/17/19 02:35 Labs: Short CBC 07/17/19 Range/Units 02:35 WBC 5.0 (4.3-11.1) K/mcL Hgb 10.9 L (12.9-16.9) g/dL Hct 34.7 L (37.5-50.1) % Plt Count 177 (140-400) K/mcL Neutrophils # 2.6 (1.6-8.9) K/mcL BMP 07/17/19 02:35 Sodium 139 Potassium 3.6 Chloride 105 Carbon Dioxide 27 BUN 14 Creatinine 1.06 Glucose 96 Calcium 9.0 - Impressions Impressions Hand X-Ray 07/17/19 03:06 IMPRESSION: Unchanged appearance of the 3rd middle phalangeal displaced intra-articular fracture extending to the DIP joint with concomitant angulation of the distal phalanx. Eroded appearance of the distal phalanx tuft is also unchanged. Correlate for clinical signs of infection as osteomyelitis and septic joint could be present in the appropriate context. Index finger distal phalanx amputation. D/ / Felton Moeller / Felton Moeller Interpreting Provider: Felton Moeller Consult Discharge Plan - Plan Referrals: NONE,PCP [Primary Care Provider] - (1) Osteomyelitis Qualifiers: Osteomyelitis type: unspecified type Osteomyelitis location: hand Laterality: right Qualified Code(s): M86.9 - Osteomyelitis, unspecified (2) BPH (benign prostatic hyperplasia) Qualifiers: Lower urinary tract symptom presence: unspecified whether lower urinary tract symptoms present Qualified Code(s): N40.0 - Benign prostatic hyperplasia without lower urinary tract symptoms
[2019-07-17] MEDS ORDERED: *HR* HYDROcodone/Acet 5/325 mg TABLET PO PRN ×2 (09:49→20:49)
[2019-07-17] MEDS ORDERED: Dextrose Gel 15 GM/37.5 ML TUBE PO PRN ×4 (10:05→20:49)
[2019-07-17] MEDS ORDERED: D5% in Water 1,000 ML IVC PRN ×2 (10:05→20:49)
[2019-07-17] MEDS ORDERED: *HR* Dextrose 50 % in Water (Syg) 50 ML SYRINGE IVP PRN ×2 (10:05→20:49)
[2019-07-17] MEDS ORDERED: D5% in Lactated Ringers 1,000 ML IVC SCH ×2 (10:15→20:49)
[2019-07-17] MEDS ORDERED: Piperacillin/Tazobactam 3.375 GM in 0.9 % Sodium Chloride Mini Bag 100 ML IVPB SCH (13:00)
[2019-07-17] MEDS: Insulin LISPRO 300 UNITS/3 ML VIAL SQ SCH ×3 (15:16→23:06)
--- NOTE | 2019-07-17 17:18 | Anesthesia Evaluation PreOp ---
Date of Encounter: 07/17/19 Time of Encounter: 17:16 - Past History Planned Operation: R middle finger I&D Cardiac History: HTN, Hyperlipidemia Pulmonary History: Smoker CUSHION FORMER History: Other (anxiety) Other Medical History: GERD, Other (Buerger's dz) Anesthesia History: No Prior Anesthetic Complications, Past Anesthesia (L knee, thumb, chepe, partial finger amp, I&D left thumb) Alcohol Use: none Drug use: marijuana Medications and Allergies Tamsulosin HCl [Flomax] 0.4 mg PO BID 06/15/19 [History] hydrOXYzine HCl [Hydroxyzine HCl] 25 mg PO TID PRN 06/15/19 [History] Ceftriaxone Na/Dextrose,Iso [Ceftriaxone 2 gm-D5w Bag] 2,000 mg IV Q24H 07/14/19 [History] Vancomycin/0.9 % Sod Chloride [Vanco 1.25 gm/250 ml-0.9% NaCl] 1,250 mg IV Q12H 07/14/19 [History] metroNIDAZOLE [Flagyl] 500 mg PO TID 07/14/19 [History] Allergy/AdvReac Type Severity Reaction Status Date / Time No Known Allergies Allergy Verified 07/17/19 02:20 - Meds/Allergy Pre-op Review Medications Reviewed: Yes Allergies Reviewed: Yes Beta Blockers on Current Med List: No Anesthesia Results - Labs 07/17/19 02:35 07/17/19 02:35 Anesthesia Exam Vital Signs/O2 Sat, Most Current Temp Pulse Resp BP Pulse Ox 98.6 F 64 16 145/78 99 07/17/19 14:00 07/17/19 14:00 07/17/19 14:00 07/17/19 14:00 07/17/19 14:00 Weight: 68kg NPO (# of Hours): >8 - HEENT Pupil (Motor): Pupils equal, EOMI Mallampati: III Teeth: Normal Oral Opening: Greater than 3 - CUSHION FORMER LOC: Oriented CUSHION FORMER Motor: Normal RUE, Normal LUE, Normal RLE, Normal LLE, Normal Face CUSHION FORMER Sensory: Normal: RUE, LUE, RLE, LLE, Face - Cardiac Rhythm: Regular - Pulmonary Breath Sounds: bilateral Clear Respiratory Effort: Symmetrical Anesthesia Assess/Plan ASA Score: 3 Level of consciousness: Cooperative Anesthetic Plan: General Monitoring Plan: Standard Monitors Recovery Plan: PACU
[2019-07-17] MEDS ORDERED: Albuterol 2.5 MG/3 ML NEBULIZER IH ONE (17:19)
[2019-07-17] MEDS ORDERED: *HR* Promethazine 25 MG/ML VIAL IVP PRN ×2 (18:29→20:49)
[2019-07-17] MEDS ORDERED: Ondansetron 4 MG/2 ML VIAL IVP ONE ×2 (18:29→20:49)
[2019-07-17] MEDS ORDERED: *HR* Meperidine 25 MG/ML SYRINGE IVP PRN ×2 (18:29→20:49)
[2019-07-17] MEDS ORDERED: *HR* HYDROmorphone (PF) 1 MG/ML SYRINGE IVP PRN ×2 (18:29→20:49)
[2019-07-17] MEDS ORDERED: *HR* Propofol 200 MG/20 ML VIAL IVP ONE (18:39)
[2019-07-17] MEDS ORDERED: *HR* Midazolam HCl 2 MG/2 ML VIAL ONE (18:39)
[2019-07-17] MEDS ORDERED: *HR* FentaNYL (PF) 100 MCG/2 ML VIAL ONE (18:39)
[2019-07-17] MEDS ORDERED: Lidocaine -MPF 2% 2 ML VIAL ONE ×2 (18:40→18:56)
[2019-07-17] MEDS ORDERED: Dexamethasone 4 MG/ML VIAL ONE (18:40)
[2019-07-17] MEDS ORDERED: EPHEDrine 50 MG/ML VIAL ONE (19:28)
--- NOTE | 2019-07-17 20:06 | Orthopedic Operative Note ---
Date of procedure: 07/17/19 Procedure: OPERATIVE REPORT SURGEON: Amos Dominguez MD PREOPERATIVE DIAGNOSIS: Right long finger DIP joint fracture subluxation presumed osteomyelitis and overlying ulceration POSTOPERATIVE DIAGNOSIS: Same PROCEDURE: Right long finger amputation through the middle phalanx ANESTHESIA: Gen. anesthesia SPECIMENS: Right long finger as well as swabs for aerobic and anaerobic specimens PREOPERATIVE NOTE The surgical plan was reviewed with the patient. The risks, benefits, alternatives, and potential complications of this procedure were discussed with the patient including injury to veins, arteries, nerves, tendons, ligaments, and bone. Also discussed were the risks of infection, bleeding, pain, blood clots, the possible need for a blood transfusion, the possible need for further procedures, heart attack, stroke, and . Additional risks include continued symptoms despite surgery and the need for further more proximal amputation. All of this was explained in simple terms, and the patient verbalized understanding and wished to proceed. Consent was given to proceed with surgery. PROCEDURE: The patient was seen in the preoperative holding area where the identify and the consent were confirmed. The right long finger was marked. Final questions were answered. The patient was brought back to the operating room and placed supine on the operating room table. A huddle was performed with the patient and all vital surgical team members confirming patient identity, the correct procedure, and the correct operative site. Gen. anesthesia was administered. The operative extremity was prepped and draped in the usual sterile fashion. A surgical time out was performed immediately preceding the incision with all personnel in the operating room to confirm patient identity, the correct operative site and extremity, correct radiographic studies, availability of appropriate surgical equipment, and agreement on the planned procedure. Tourniquet was inflated without exsanguination. A fishmouth incision was made over the long finger just proximal to the area of ulceration and full-thickness flaps were elevated. The flexor tendon sheath was opened volarly and the FDP was tenotomized after being pulled distally. The FDS insertion was preserved. The neurovascular bundles were ligated and taken down. Subperiosteal dissection was performed on to the middle phalanx and using a sagittal saw the osteotomy is performed. The extensor tendon was taken down and the fingers placed on the back table for specimen in formalin. The wound bed was healthy in appearance after amputation. The wound was copiously irrigated and loosely closed using interrupted nylon stitches. A soft, sterile dressing was applied. The instrument, sponge, and needle counts were correct after wound closure. POST OPERATIVE PLAN: Continue IV antibiotics over the next 24-48 hours and anticipate discharge on an oral antibiotic. Was there an faculty i on call medical assistant present: No Estimated blood loss (cc): 1
--- NOTE | 2019-07-17 20:24 | Anesthesia Evaluation Post Op ---
Date of Encounter: 07/17/19 Time of Encounter: 20:21 - Vital Signs Vital Signs: Vital Signs/O2 Sat, Most Current Temp Pulse Resp BP Pulse Ox 98.3 F 53 14 110/57 97 07/17/19 20:00 07/17/19 20:20 07/17/19 20:20 07/17/19 20:20 07/17/19 20:20 - Lungs Lungs: Clear Ascult./Percussion - Airway Airway: Non-obstructed - Cardiovascular Regular Rate - Mental Status Mental Status: Baseline Status - Pain Pain Scale: 0 Pain Scale used: Numeric (1 - 10) - Nausea Vomiting Nausea Vomiting: Not Present - Hydration Hydration: Ice chips - Discharge PostOp Status: Transfer Patient to floor
[2019-07-17] MEDS ORDERED: hydrOXYzine pamoate 25 MG CAPSULE PO PRN (20:49)
[2019-07-17] MEDS ORDERED: Piperacillin/Tazobactam 3.375 GM VIAL ONE (21:18)
[2019-07-17] MEDS: Piperacillin/Tazobactam 3.375 GM in 0.9 % Sodium Chloride Mini Bag 100 ML IVPB SCH (21:36)
[2019-07-18] MEDS: Piperacillin/Tazobactam 3.375 GM in 0.9 % Sodium Chloride Mini Bag 100 ML IVPB SCH (05:45)
[2019-07-18] MEDS: Insulin LISPRO 300 UNITS/3 ML VIAL SQ SCH (05:56)
[2019-07-18] MEDS ORDERED: *HR* LORazepam 2 MG/ML VIAL IVP ONE (05:59)
[2019-07-18 06:17] LABS: Hematocrit 35.2 % (37.5-50.1); Hemoglobin 11.2 g/dL (12.9-16.9); Mean Corpuscular HGB Conc 31.8 g/dL (31.6-35.5); Mean Corpuscular Hemoglobin 26.5 pg (28.0-33.3); Mean Corpuscular Volume 83.2 fL (83.0-100.0); Mean Platelet Volume 10.3 fL (9.4-12.4); Platelet Count 171 K/mcL (140-400); Red Blood Count 4.23 M/mcL (4.19-5.50); Red Cell Distribution Width 14.5 % (11.5-14.5); White Blood Count 4.4 K/mcL (4.3-11.1)
[2019-07-18 06:39] LABS: BUN/Creatinine Ratio 11 (6-26); Blood Urea Nitrogen 12 mg/dL (6-20); Carbon Dioxide 24 mEq/L (23-29); Chloride 103 mEq/L (98-107); Glucose 151 mg/dL (70-105); Osmolality,Calculated 289 (280-300); Potassium 4.2 mEq/L (3.5-5.1); Sodium 138 mEq/L (136-145); eGFR For African Americans > 60 (> 60); eGFR For Non-African Americans > 60 (> 60)
--- NOTE | 2019-07-18 07:10 | Orthopedics Progress Note ---
Date of Encounter: 07/18/19 Time of Encounter: 07:07 Subjective Interval history: S: No new injuries or complaints. Pain well-controlled to the left residual thumb and right residual long finger. O: Afebrile on the vital signs are stable Left thumb wound and right long finger wound are healing nicely. No redness or concern for persistent infection. Neurovascularly intact distally otherwise. A: Amputation of left thumb A beautician of the right long finger through the middle phalanx P: Daily dressing changes Gentle range of motion exercises to reduce the risk of stiffness Anticipate discharge on an oral antibiotic per the hospitalist Follow-up with me in 1 week for clinical reevaluation Objective Vital signs: Vital Signs Temp Pulse Resp BP Pulse Ox 07/18/19 04:26 98.1 F 66 14 144/74 100 07/18/19 00:15 97.9 F 60 15 132/86 99 07/17/19 23:15 98.0 F 63 15 122/76 98 07/17/19 23:04 98.0 F 64 15 119/76 98 07/17/19 22:15 97.7 F 66 14 142/86 97 07/17/19 21:45 98.2 F 64 15 128/68 99 07/17/19 21:15 98.4 F 60 15 132/70 100 07/17/19 21:00 98.5 F 65 16 176/61 100 07/17/19 20:45 98.3 F 58 15 146/89 99 07/17/19 20:36 98 07/17/19 20:30 98.3 F 59 15 131/88 99 07/17/19 20:20 53 14 110/57 97 07/17/19 20:10 69 14 90/45 96 07/17/19 20:00 98.3 F 69 14 88/43 96 07/17/19 14:00 98.6 F 64 16 145/78 99 07/17/19 09:54 98.5 F 69 17 132/74 97 07/17/19 08:15 97 Intake and Output 07/17/19 07/17/19 07/18/19 15:59 23:59 07:59 Intake Total 250 / 1500 350 / 350 Output Total 200 / 201 1 / 201 Balance -200 / 1299 249 / 1299 350 / 350 Intake: IV Fluids 350 / 350 Zosyn 3.375 GM In 0.9 % Sodium 100 / 100 Chloride (Mini-Bag +) 100 ML @ 25 mls/hr IVPB Q8H [facility] Rx#: [id number] Vancocin 1,250 MG In 0.9 % 250 / 250 Sodium Chloride 250 ML @ 166.67 mls/hr IVPB Q12H [facility] Rx#: [id number] Oral 250 / 250 Output: Urine 200 / 200 0 / 200 Estimated Blood Loss Other: Meal npo Dinner Percent of Meal Consumed 0% 50% Blood Glucose* 84 110 116 - Labs CBC & BMP: 07/18/19 05:44 07/18/19 05:44 Labs: Abnormal lab results Hgb 11.2 g/dL (12.9-16.9) L 07/18/19 05:44 Hct 35.2 % (37.5-50.1) L 07/18/19 05:44 MCV 82.8 fL (83.0-100.0) L 07/17/19 02:35 MCH 26.5 pg (28.0-33.3) L 07/18/19 05:44 MCHC 31.4 g/dL (31.6-35.5) L 07/17/19 02:35 RDW 15.1 % (11.5-14.5) H 07/17/19 02:35 ESR 20 mm/hr (0-10) H 07/17/19 02:35 Glucose 151 mg/dL (70-105) H 07/18/19 05:44 Lactic Acid 0.4 mmol/L (0.5-2.2) L 07/17/19 02:35 Consult Discharge Plan - Plan Additional Instructions: DISCHARGE INSTRUCTIONS Dr. Dominguez DISCHARGE DIAGNOSIS/PROCEDURE Left thumb amputation Partial right long finger amputation ACTIVITY: Avoid aggressive activities with arm in which you were operated. Okay to move your fingers which will be good exercise. WOUND CARE: Change her dressing once per day on each side using dry gauze and a small Kumar wrap. DRIVING: Do not drive while taking narcotic pain medications. DIET: Begin with clear liquids, and then increase your diet as you feel comfortable. MEDICATIONS: Oral antibiotic per the discharging hospitalist. FOLLOW-UP Follow-up with Dr. Dominguez or Maria Teresa Ko PA-C at the office 1 week from the surgery date for a post operative evaluation. Call the office at [phone] to schedule or confirm your appointment. WHEN TO CALL THE DOCTOR OR WHEN TO SEEK CARE BEFORE YOUR APPOINTMENT 1. Excess swelling or increased numbness not made better by elevating the hand and moving the fingers. 2. Uncontrolled pain. 3. A color change in your hand or fingers. 4. Worsening redness or drainage. 5. Fevers over 100.5 degrees F or 38.1 degrees C. 6. Any symptoms that bring concern to you. Referrals: NONE,PCP [Primary Care Provider] -
[2019-07-18 07:48] VITALS: BP 131/82
--- NOTE | 2019-07-18 09:16 | Discharge Summary ---
Orders not resulted at time of discharge: Pending orders 07/17/19 02:35 Culture,Blood [BC] Stat 07/17/19 19:35 Culture,Anaerobic [RM] Routine Culture,Wound,with Gram Stain [RM] Routine 07/17/19 19:46 Surgical Pathology [PTH] Routine Date of Encounter: 07/18/19 Time of Encounter: 09:14 - Discharge Diagnosis (1) Osteomyelitis Priority: Primary Status: Suspected Qualifiers: Osteomyelitis type: unspecified type Osteomyelitis location: hand Laterality: right Qualified Code(s): M86.9 - Osteomyelitis, unspecified (2) BPH (benign prostatic hyperplasia) Priority: Secondary Status: Chronic Qualifiers: Lower urinary tract symptom presence: unspecified whether lower urinary tract symptoms present Qualified Code(s): N40.0 - Benign prostatic hyperplasia without lower urinary tract symptoms (3) FRANCISCO (generalized anxiety disorder) Priority: Secondary Status: Chronic Hospital course: Mr. Naranjo is a 39 year old male past medical history significant for hypertension, hyperlipidemia, thyroid disease, DVT, liver disease, and anxiety presents for complaints of worsening pain and swelling to his right long finger over the past few days. Has been being treated for dolan to his bilateral hands and fingers and most recently had left thumb amputation secondary to osteomyelitis on 07/14/[address] Bender and left AMA shortly after. ER obtained an x-ray of the right third finger which showed unchanged appearance of the third middle phalangeal displaced intra-articular fracture extending to the DIP joint with concomitant angulation of the distal phalanx, eroded appearance of the distal phalanx tuft is also unchanged, correlate for clinical signs of infection as osteomyelitis and septic joint could be present in the appropriate context, and index finger distal phalanx amputation. Patient was admitted to the hospital due to osteomyelitis of the right long finger. ESR 20, CRP 7, patient was managed with IV antibiotics. Ortho was consulted for PREOPERATIVE DIAGNOSIS: Right long finger DIP joint fracture subluxation presumed osteomyelitis and overlying ulceration and patient underwent Right long finger amputation through the middle phalanx. Recommended to follow up with infectious disease as outpatient. Follow up with Ortho within a week a hospital discharge. - Time Spent with Patient Total time spent providing and/or coordinating discharge services: Time spent: Greater than 30 minutes (35) - Discharge Medications Prescriptions: New Tamsulosin [Flomax] 0.4 mg PO HS 30 Days #30 capsule Metoprolol [Lopressor] 12.5 mg PO DAILY 30 Days #30 tablet Acetaminophen [Tylenol Arthritis] 650 mg PO Q6H PRN 30 Days #30 tablet.er PRN Reason: Breakthrough Pain Lisinopril [Zestril] 5 mg PO DAILY 30 Days #30 tablet Sulfamethoxazole/Trimeth DS [Bactrim DS] 1 each PO BID 10 Days #20 tablet Discontinued Vancomycin/0.9 % Sod Chloride [Vanco 1.25 gm/250 ml-0.9% NaCl] 1,250 mg IV Q12H Ceftriaxone Na/Dextrose,Iso [Ceftriaxone 2 gm-D5w Bag] 2,000 mg IV Q24H metroNIDAZOLE [Flagyl] 500 mg PO TID Home Medications: Acetaminophen [Tylenol Arthritis] 650 mg PO Q6H PRN 30 Days #30 tablet.er 07/18/19 [Rx] Lisinopril [Zestril] 5 mg PO DAILY 30 Days #30 tablet 07/18/19 [Rx] Metoprolol [Lopressor] 12.5 mg PO DAILY 30 Days #30 tablet 07/18/19 [Rx] Sulfamethoxazole/Trimeth DS [Bactrim DS] 1 each PO BID 10 Days #20 tablet 07/18/19 [Rx] Tamsulosin [Flomax] 0.4 mg PO HS 30 Days #30 capsule 07/18/19 [Rx] Allergies/Adverse Reactions: Allergy/AdvReac Type Severity Reaction Status Date / Time No Known Allergies Allergy Verified 07/17/19 02:20 Date of admission: 07/17/19 10:04 Primary care physician: PCP NONE Consults: 07/17/19 04:14 Consult to Orthopedic Surgery [CONS] Stat Consulting Provider: [facility] Reason for Consult: right 3rd finger infection Time Notified: 04:15 Call Completed: Yes 07/17/19 05:41 Consult to Product Promoter Sales Person [CONS] Routine Reason for SW Consult: home IV - Constitutional Vitals: Temp Pulse Resp BP Pulse Ox 97.8 F 62 16 131/82 100 07/18/19 07:47 07/18/19 07:47 07/18/19 07:47 07/18/19 07:47 07/18/19 07:47 Exam: Vitals: Reviewed General: Alert and oriented x4. In no distress. Cardiovascular: RRR, normal S1 & S2, no rubs, murmurs or gallops. Lungs: CTA b/l, no wheezes or crackles. Abdomen: Soft, non-tender, no rigidity. NABS in all 4 quadrants. Extremities: Left thumb dressing dry and intact. right dressing intact Neurological: No focal neurological abnormalities. Rest of the physical exam is non contributory. - Patient Status Disposition: Home, Self-Care Condition: Good Functional capacity at discharge: independent ambulation Overall status at discharge: patient is back to baseline - Discharge Instructions Follow Up With: NONE,PCP [Primary Care Provider] - Additional Instructions: DISCHARGE INSTRUCTIONS Dr. Dominguez DISCHARGE DIAGNOSIS/PROCEDURE Left thumb amputation Partial right long finger amputation ACTIVITY: Avoid aggressive activities with arm in which you were operated. Okay to move your fingers which will be good exercise. WOUND CARE: Change her dressing once per day on each side using dry gauze and a small Kumar wrap. DRIVING: Do not drive while taking narcotic pain medications. DIET: Begin with clear liquids, and then increase your diet as you feel comfortable. MEDICATIONS: Oral antibiotic per the discharging hospitalist. FOLLOW-UP Follow-up with Dr. Dominguez or Maria Teresa Ko PA-C at the office 1 week from the surgery date for a post operative evaluation. Call the office at [phone] to schedule or confirm your appointment. WHEN TO CALL THE DOCTOR OR WHEN TO SEEK CARE BEFORE YOUR APPOINTMENT 1. Excess swelling or increased numbness not made better by elevating the hand and moving the fingers. 2. Uncontrolled pain. 3. A color change in your hand or fingers. 4. Worsening redness or drainage. 5. Fevers over 100.5 degrees F or 38.1 degrees C. 6. Any symptoms that bring concern to you. - Diet and Activity Activity: resume usual activities as tolerated Diet: low salt diet
--- NOTE | 2019-07-18 11:25 | Physician Discharge Referral ---
Home Health/Hosp Referral Info Transfer to: Home Health - Diagnosis (1) Osteomyelitis Priority: Primary Status: Suspected (2) BPH (benign prostatic hyperplasia) Priority: Secondary Status: Chronic (3) FRANCISCO (generalized anxiety disorder) Priority: Secondary Status: Chronic - Respiratory Orders None Smoking Cessation: Smoking cessation has been advised. For more information, call the [place] Tobacco Quit Line at 7-173-YAHI-NOW. - Diet/Nutrition Diet/Nutrition Orders: Regular - Activity Activity Orders: Ambulate - Services Needed Following services are medically necessary services: Nursing - Transfer Medications Prescriptions: Sulfamethoxazole/Trimeth DS [Bactrim DS] 1 each PO BID 10 Days #20 tablet Transmission Status: Received by [facility] [employer]. Tamsulosin [Flomax] 0.4 mg PO HS 30 Days #30 capsule Transmission Status: Received by [facility]. Metoprolol [Lopressor] 12.5 mg PO DAILY 30 Days #30 tablet Transmission Status: Received by [facility] [employer]. Acetaminophen [Tylenol Arthritis] 650 mg PO Q6H PRN 30 Days #30 tablet.er PRN Reason: Breakthrough Pain Transmission Status: Received by [facility] [employer]. Lisinopril [Zestril] 5 mg PO DAILY 30 Days #30 tablet Transmission Status: Received by [facility]. Home Medications: Acetaminophen [Tylenol Arthritis] 650 mg PO Q6H PRN 30 Days #30 tablet.er 07/18/19 [Rx] Lisinopril [Zestril] 5 mg PO DAILY 30 Days #30 tablet 07/18/19 [Rx] Metoprolol [Lopressor] 12.5 mg PO DAILY 30 Days #30 tablet 07/18/19 [Rx] Sulfamethoxazole/Trimeth DS [Bactrim DS] 1 each PO BID 10 Days #20 tablet 07/18/19 [Rx] Tamsulosin [Flomax] 0.4 mg PO HS 30 Days #30 capsule 07/18/19 [Rx] Allergies/Adverse Reactions: Allergy/AdvReac Type Severity Reaction Status Date / Time No Known Allergies Allergy Verified 07/17/19 02:20 Certification: Further, I certify that my clinical findings support that this patient is homebound (i.e. absences from home require considerable and taxing effort and are for medical reasons or temple services or infrequently or short duration when for other reasons) because: Homebound Reason: Patient requires assistance of a person or device to safely leave home Attestation: My signature below is to certify that this patient is under my care and that I, or nurse practitioner, or a physician's social research assistant working with me, has a [id number] encounter with this patient.
[2019-07-18] MEDS ORDERED: Aminoglycoside Consult 1 EACH MC ONE (11:51)
== END 2019-07-18 11:52 | disposition home or self-care (01) | DRG 514 ==
LOC: EMEROOARM 01:56 → 3ANU 01:56 → SUATTDRO 04:47 → 3ANU 05:06
PROVIDERS: ADMIT Family Medicine; ATTEND Internal Medicine

== ENCOUNTER 2020-02-11 19:35 | Observation (INO) ==
[2020-02-11] MEDS ORDERED: Ondansetron 4 MG/2 ML VIAL IVP ONE (19:53)
[2020-02-11] MEDS ORDERED: 0.9 % Sodium Chloride 1,000 ML IVC ONE (19:53)
[2020-02-11 20:47] LABS: Bilirubin,Urine Negative (Negative); Blood,Urine Negative (Negative); Clarity,Urine Turbid (Clear); Color,Urine Yellow (Yellow); Glucose,Urine (UA) Normal (Normal); Ketones,Urine Negative (Negative); Leukocyte Esterase,Urine Small (Negative); Nitrite,Urine Negative (Negative); PH,Urine 7.5 pH Units (5.0-8.0); Protein,Urine 100 mg/dL (Neg-Trace); Specific Gravity,Urine 1.025 (1.010-1.025); Urobilinogen,Urine Normal (Normal)
[2020-02-11 20:49] LABS: Bacteria,Urine None Seen per hpf (None-Few); Hyaline Casts,Urine None Seen per lpf (None-Few); RBC,Urine 0-3 per hpf (0-3); Squamous Epithelial Cell,Urine Many per lpf (None-Few)
[2020-02-11 21:04] LABS: Triple Phosphate Crystal,Urine Present
[2020-02-11 21:07] LABS: Hematocrit 40.8 % (37.5-50.1); Hemoglobin 12.8 g/dL (12.9-16.9); Mean Corpuscular HGB Conc 31.4 g/dL (31.6-35.5); Mean Corpuscular Volume 86.1 fL (83.0-100.0); Mean Platelet Volume 9.6 fL (9.4-12.4); Platelet Count 184 K/mcL (140-400); Red Blood Count 4.74 M/mcL (4.19-5.50); White Blood Count 7.2 K/mcL (4.3-11.1)
[2020-02-11 21:27] LABS: Alanine Aminotransferase 15 Units/L (7-52); Albumin 4.3 g/dL (3.5-5.7); Albumin/Globulin Ratio 1.5 (1.1-2.2); Alkaline Phosphatase 153 Units/L (34-104); Aspartate Amino Transferase 25 Units/L (13-39); BUN/Creatinine Ratio 10 (6-26); Bilirubin,Direct 0.2 mg/dL (0.0-0.2); Bilirubin,Indirect 0.9 mg/dL (0.0-1.0); Bilirubin,Total 1.1 mg/dL (0.3-1.0); Blood Urea Nitrogen 9 mg/dL (6-20); Calcium 9.4 mg/dL (8.6-10.3); Carbon Dioxide 27 mEq/L (23-29); Chloride 104 mEq/L (98-107); Globulin 2.9 g/dL (2.4-3.5); Glucose 84 mg/dL (70-105); Lipase 7 Units/L (11-82); Osmolality,Calculated 284 (280-300); Potassium 3.8 mEq/L (3.5-5.1); Sodium 138 mEq/L (136-145); Total Protein 7.2 g/dL (6.4-8.9); eGFR For African Americans > 60 (> 60); eGFR For Non-African Americans > 60 (> 60)
[2020-02-11] MEDS ORDERED: Isovue-370 500 ML BOTTLE IVP ONE (21:42)
[2020-02-11] MEDS ORDERED: *HR* LORazepam 2 MG/ML VIAL IVP ONE (21:44)
[2020-02-11] MEDS ORDERED: Isovue-370 500 ML BOTTLE PO ONE (22:25)
[2020-02-11] MEDS ORDERED: *HR* HYDROmorphone (PF) 1 MG/ML SYRINGE IVP ONE (23:53)
[2020-02-12] MEDS ORDERED: Naloxone 0.4 MG/ML INJ IVP PRN (00:01)
[2020-02-12] MEDS ORDERED: lisinopriL 5 MG TABLET PO SCH (09:00)
[2020-02-12 10:45] VITALS: BP 155/85
[2020-02-12] MEDS ORDERED: MetroNIDAZOLE 500 MG/100 ML 500 MG/100 ML BAG IVPB SCH (12:00)
== END 2020-02-12 12:46 | disposition left against medical advice (07) ==
LOC: EMEROOARM 19:35 → 3BNU 19:35 → SUATTDRO 02-12 00:11 → 3BNU 02-12 00:22
PROVIDERS: ADMIT Internal Medicine; ATTEND Internal Medicine

== ENCOUNTER 2020-07-07 11:25 | Observation (INO) ==
[2020-07-07] MEDS ORDERED: *HR* LORazepam 2 MG/ML VIAL IVP ONE (11:39)
[2020-07-07 12:42] LABS: Basophils # 0.1 K/mcL (0.0-0.2); Basophils % 0.9 %; Eosinophils # 0.1 K/mcL (0.0-0.6); Eosinophils % 0.8 %; Hematocrit 37.4 % (37.5-50.1); Hemoglobin 11.7 g/dL (12.9-16.9); Immature Granulocytes % 0.4 % (0-4); Lymphocytes # 1.7 K/mcL (0.6-4.6); Mean Corpuscular HGB Conc 31.3 g/dL (31.6-35.5); Mean Corpuscular Hemoglobin 26.2 pg (28.0-33.3); Mean Corpuscular Volume 83.7 fL (83.0-100.0); Mean Platelet Volume 10.1 fL (9.4-12.4); Monocytes # 0.5 K/mcL (0.0-1.3); Monocytes % 5.1 %; Neutrophils # 8.2 K/mcL (1.6-8.9); Platelet Count 273 K/mcL (140-400); Red Blood Count 4.47 M/mcL (4.19-5.50); Red Cell Distribution Width 14.5 % (11.5-14.5); Segmented Neutrophils % 76.8 %; White Blood Count 10.7 K/mcL (4.3-11.1)
[2020-07-07 13:02] LABS: BUN/Creatinine Ratio 31 (6-26); Blood Urea Nitrogen 28 mg/dL (6-20); Calcium 10.2 mg/dL (8.6-10.3); Carbon Dioxide 22 mEq/L (23-29); Chloride 100 mEq/L (98-107); Creatine Kinase 1245 Units/L (30-223); Glucose 96 mg/dL (70-105); Osmolality,Calculated 289 (280-300); Potassium 3.7 mEq/L (3.5-5.1); Sodium 137 mEq/L (136-145); eGFR For African Americans > 60 (> 60); eGFR For Non-African Americans > 60 (> 60)
[2020-07-07] MEDS: 0.9 % Sodium Chloride 1,000 ML IVC SCH ×4 (14:44→22:14)
[2020-07-07] MEDS ORDERED: Naloxone 0.4 MG/ML INJ IVP PRN (14:56)
[2020-07-07] MEDS ORDERED: Ondansetron 4 MG/2 ML VIAL IVP PRN (14:56)
[2020-07-07] MEDS ORDERED: *HR* Metoprolol 5 MG/5 ML VIAL IVP PRN (15:02)
[2020-07-07] MEDS ORDERED: *HR* LORazepam 2 MG/ML VIAL IVP PRN (15:13)
[2020-07-07] MEDS ORDERED: Haloperidol Lactate 5 MG/ML VIAL IVP ONE (21:21)
[2020-07-07] MEDS: *HR* Heparin 5,000 UNIT/ML VIAL SQ SCH (22:15)
[2020-07-08 02:14] LABS: BUN/Creatinine Ratio 26 (6-26); Blood Urea Nitrogen 22 mg/dL (6-20); Carbon Dioxide 25 mEq/L (23-29); Chloride 106 mEq/L (98-107); Glucose 81 mg/dL (70-105); Osmolality,Calculated 290 (280-300); Potassium 4.1 mEq/L (3.5-5.1); Sodium 139 mEq/L (136-145); eGFR For African Americans > 60 (> 60); eGFR For Non-African Americans > 60 (> 60)
[2020-07-08] MEDS: 0.9 % Sodium Chloride 1,000 ML IVC SCH ×3 (03:56→17:24)
[2020-07-08] MEDS: *HR* Heparin 5,000 UNIT/ML VIAL SQ SCH ×2 (06:12→13:39)
[2020-07-08] MEDS ORDERED: Haloperidol Lactate 5 MG/ML VIAL IVP ONE (09:04)
[2020-07-08] MEDS ORDERED: Sennosides/Docusate Sodium TABLET PO SCH (13:00)
[2020-07-08 15:22] VITALS: BP 148/99
[2020-07-08] MEDS ORDERED: Haloperidol Lactate 5 MG/ML VIAL IVP PRN (21:00)
== END 2020-07-08 18:34 | disposition left against medical advice (07) ==
LOC: 3BNU 11:25 → EMEROOARM 11:25 → SUATTDRO 14:10 → 3BNU 15:00
PROVIDERS: ADMIT Student in an Organized Health Care Education/Training Program; ATTEND Internal Medicine

== ENCOUNTER 2021-06-22 18:12 | Observation (INO) ==
[2021-06-22] MEDS ORDERED: 0.9 % Sodium Chloride 1,000 ML IVC ONE ×3 (19:23→22:03)
[2021-06-22] MEDS ORDERED: Ondansetron 4 MG/2 ML VIAL ONE (19:23)
[2021-06-22] MEDS ORDERED: Ondansetron 4 MG/2 ML VIAL IVP ONE (19:23)
[2021-06-22] MEDS ORDERED: 0.9 % Sodium Chloride 1,000 ML ONE (19:24)
[2021-06-22] MEDS ORDERED: Ketorolac 15 MG/ML VIAL IVP ONE (19:31)
[2021-06-22] MEDS ORDERED: Isovue-370 500 ML BOTTLE IVP ONE (19:31)
[2021-06-22 19:46] LABS: Basophils # 0.1 K/mcL (0.0-0.2); Eosinophils # 0.2 K/mcL (0.0-0.6); Eosinophils % 1.9 %; Hematocrit 49.1 % (37.5-50.1); Immature Granulocytes % 0.2 % (0-4); Lymphocytes # 3.5 K/mcL (0.6-4.6); Lymphocytes % 33.6 %; Mean Corpuscular HGB Conc 32.6 g/dL (31.6-35.5); Mean Corpuscular Volume 82.8 fL (83.0-100.0); Mean Platelet Volume 10.3 fL (9.4-12.4); Monocytes # 0.9 K/mcL (0.0-1.3); Monocytes % 8.3 %; Neutrophils # 5.7 K/mcL (1.6-8.9); Platelet Count 226 K/mcL (140-400); Red Blood Count 5.93 M/mcL (4.19-5.50); Red Cell Distribution Width 14.8 % (11.5-14.5); White Blood Count 10.3 K/mcL (4.3-11.1)
[2021-06-22] MEDS ORDERED: Haloperidol Lactate 5 MG/ML VIAL IM ONE (20:12)
[2021-06-22 20:22] LABS: Alanine Aminotransferase 25 Units/L (7-52); Albumin/Globulin Ratio 1.2 (1.1-2.2); Aspartate Amino Transferase 39 Units/L (13-39); BUN/Creatinine Ratio 10 (6-26); Bilirubin,Direct 0.2 mg/dL (0.0-0.2); Bilirubin,Indirect 0.7 mg/dL (0.0-1.0); Bilirubin,Total 0.9 mg/dL (0.3-1.0); Blood Urea Nitrogen 15 mg/dL (6-20); Calcium 10.5 mg/dL (8.6-10.3); Carbon Dioxide 19 mEq/L (23-29); Chloride 104 mEq/L (98-107); Ethanol < 10 mg/dL (Less than 10); Globulin 4.1 g/dL (2.4-3.5); Glucose 119 mg/dL (70-105); Osmolality,Calculated 294 (280-300); Potassium 3.7 mEq/L (3.5-5.1); Sodium 141 mEq/L (136-145); Total Protein 9.1 g/dL (6.4-8.9); eGFR For African Americans > 60 (> 60); eGFR For Non-African Americans 54 (> 60)
[2021-06-22 20:29] LABS: Troponin I < 0.03 ng/mL (< 0.04)
[2021-06-22 20:46] LABS: Alkaline Phosphatase 154 Units/L (34-104)
[2021-06-22 21:38] LABS: Creatine Kinase 1097 Units/L (30-223)
[2021-06-22] MEDS ORDERED: Vancomycin (wt based) 1,000 MG VIAL IV STA (22:31)
[2021-06-22] MEDS ORDERED: Vancomycin 1,500 MG/265 ML IV.SOLN IVPB ONE (22:34)
[2021-06-23 00:57] LABS: Bilirubin,Urine Negative (Negative); Blood,Urine Moderate (Negative); Clarity,Urine Clear (Clear); Color,Urine Yellow (Yellow); Glucose,Urine (UA) Normal (Normal); Ketones,Urine Negative (Negative); Leukocyte Esterase,Urine Negative (Negative); Mucus,Urine Few per lpf (None-Few); Nitrite,Urine Negative (Negative); PH,Urine 6.5 pH Units (5.0-8.0); Protein,Urine 70 mg/dL (Neg-Trace); RBC,Urine 50-100 per hpf (0-3); Specific Gravity,Urine > 1.030 (1.010-1.025); Squamous Epithelial Cell,Urine Few per hpf (None-Few); WBC,Urine 0-3 per hpf (0-3)
[2021-06-23 03:04] LABS: Amphetamine Screen,Urine Negative ng/mL (Cutoff=1000); Barbiturate Screen,Urine Negative ng/mL (Cutoff=200); Benzodiazepines Screen,Urine Negative ng/mL (Cutoff=200); Cannabinoid Screen,Urine Positive ng/mL (Cutoff = 50); Cocaine Screen,Urine Negative ng/mL (Cutoff= 300); Opiate Screen,Urine Negative ng/mL (Cutoff=300); Phencyclidine Screen,Urine Negative ng/mL (Cutoff=25)
[2021-06-23] MEDS ORDERED: *HR* LORazepam 2 MG/ML VIAL IVP ONE (04:45)
[2021-06-23 04:46] LABS: Creatinine,Urine 279 mg/dL; Protein/Creatinine Ratio,Urine 0.22 mg/mg (0.00-0.20)
[2021-06-23] MEDS ORDERED: 0.9 % Sodium Chloride 1,000 ML IVC SCH (05:00)
[2021-06-23 05:16] LABS: Adenovirus Not Detected (Not Detect); Bordetella Pertussis Not Detected (Not Detect); Chlamydophila pneumoniae Not Detected (Not Detect); Coronavirus 229E Not Detected (Not Detect); Coronavirus HKU1 Not Detected (Not Detect); Coronavirus NL63 Not Detected (Not Detect); Coronavirus OC43 Not Detected (Not Detect); Human Metapneumovirus Not Detected (Not Detect); Human Rhinovirus/Enterovirus Not Detected (Not Detect); Influenza A Subtype 2009 H1 Not Detected (Not Detect); Influenza B Not Detected (Not Detect); Mycoplasma pneumoniae Not Detected (Not Detect); Parainfluenza Virus 1 Not Detected (Not Detect); Parainfluenza Virus 2 Not Detected (Not Detect); Parainfluenza Virus 3 Not Detected (Not Detect); Parainfluenza Virus 4 Not Detected (Not Detect); Respiratory Syncytial Virus Not Detected (Not Detect); SARS-CoV-2 Not Detected (Not Detect)
[2021-06-23 05:17] LABS: BUN/Creatinine Ratio 16 (6-26); Blood Urea Nitrogen 18 mg/dL (6-20); Calcium 9.2 mg/dL (8.6-10.3); Carbon Dioxide 26 mEq/L (23-29); Chloride 108 mEq/L (98-107); Creatine Kinase 1166 Units/L (30-223); Glucose 85 mg/dL (70-105); Osmolality,Calculated 291 (280-300); Potassium 4.5 mEq/L (3.5-5.1); Sodium 140 mEq/L (136-145); eGFR For African Americans > 60 (> 60); eGFR For Non-African Americans > 60 (> 60)
[2021-06-23] MEDS ORDERED: Naloxone 0.4 MG/ML INJ IVP PRN (06:26)
[2021-06-23] MEDS ORDERED: Acetaminophen 325 MG TABLET PO PRN (06:27)
[2021-06-23 07:15] VITALS: O2SAT 98
[2021-06-23 10:39] VITALS: BP 113/75; PULSE 84; TEMP 97.8
[2021-06-23] MEDS ORDERED: *HR* Heparin 5,000 UNIT/ML VIAL SQ SCH (18:00)
== END 2021-06-23 11:57 | disposition left against medical advice (07) ==
LOC: 3BNU 18:12 → EMEROOARM 18:12 → 3BNU 06-23 04:13
PROVIDERS: ADMIT Internal Medicine; ATTEND Internal Medicine

== ENCOUNTER 2021-10-12 01:40 | Inpatient (IN) ==
[2021-10-12] MEDS ORDERED: Acetaminophen 325 MG TABLET PO ONE (02:34)
[2021-10-12 02:49] LABS: Basophils # 0.1 K/mcL (0.0-0.2); Basophils % 0.5 %; Eosinophils # 0.1 K/mcL (0.0-0.6); Eosinophils % 0.6 %; Hematocrit 43.7 % (37.5-50.1); Hemoglobin 14.1 g/dL (12.9-16.9); Immature Granulocytes % 0.2 % (0-4); Lymphocytes # 1.3 K/mcL (0.6-4.6); Lymphocytes % 11.4 %; Mean Corpuscular HGB Conc 32.3 g/dL (31.6-35.5); Mean Corpuscular Hemoglobin 27.5 pg (28.0-33.3); Mean Corpuscular Volume 85.4 fL (83.0-100.0); Mean Platelet Volume 10.5 fL (9.4-12.4); Monocytes # 0.7 K/mcL (0.0-1.3); Monocytes % 5.9 %; Platelet Count 209 K/mcL (140-400); Red Blood Count 5.12 M/mcL (4.19-5.50); Red Cell Distribution Width 13.9 % (11.5-14.5); Segmented Neutrophils % 81.4 %
[2021-10-12 03:11] LABS: BUN/Creatinine Ratio 15 (6-26); Blood Urea Nitrogen 14 mg/dL (6-20); Calcium 9.4 mg/dL (8.6-10.3); Carbon Dioxide 27 mEq/L (23-29); Chloride 100 mEq/L (98-107); Glucose 97 mg/dL (70-105); Osmolality,Calculated 284 (280-300); Potassium 3.9 mEq/L (3.5-5.1); Sodium 137 mEq/L (136-145); Troponin I < 0.03 ng/mL (< 0.04); eGFR For African Americans > 60 (> 60); eGFR For Non-African Americans > 60 (> 60)
[2021-10-12 03:28] LABS: Influenza A PCR Negative (Negative); Influenza B PCR Negative (Negative); Resp. Syncytial Virus PCR Negative (Negative); SARS-CoV-2 by PCR (In House) Negative (Negative)
[2021-10-12] MEDS ORDERED: Isovue-370 500 ML BOTTLE IVP ONE ×2 (04:41→08:24)
[2021-10-12] MEDS ORDERED: *HR* OxyCODONE Immed Rel 5 MG TABLET PO ONE (08:38)
[2021-10-12] MEDS ORDERED: Melatonin 3 MG TABLET PO PRN (10:03)
[2021-10-12] MEDS ORDERED: Ondansetron 4 MG/2 ML VIAL IVP PRN (10:03)
[2021-10-12] MEDS ORDERED: Acetaminophen 325 MG TABLET PO PRN (10:03)
[2021-10-12] MEDS ORDERED: Naloxone 0.4 MG/ML INJ IVP PRN (10:03)
[2021-10-12] MEDS ORDERED: D5% in Water 1,000 ML IVC PRN (10:13)
[2021-10-12] MEDS ORDERED: Dextrose Gel 15 GM/37.5 ML TUBE PO PRN ×2 (10:13)
[2021-10-12] MEDS ORDERED: Gadolinium Contrast Agent (WT Based) IV PRN (10:13)
[2021-10-12] MEDS ORDERED: *HR* Dextrose 50 % in Water (Syg) 50 ML SYRINGE IVP PRN (10:13)
[2021-10-12] MEDS ORDERED: Ringers Solution, Lactated 1,000 ML IVC ONE (10:56)
[2021-10-12] MEDS ORDERED: Lidocaine HCL 4 ML Topical Solution (Laryng-O-Jet Kit Sterile Pak) TP ONE (11:19)
[2021-10-12] MEDS ORDERED: Ipratropium/Albuterol Neb 3 ML IH PRN (11:45)
[2021-10-12] MEDS ORDERED: Chloraseptic Spray 177 ML BOTTLE MM PRN (12:43)
[2021-10-12] MEDS ORDERED: Saliva Stimulant 44.3ml BOTTLE PO PRN (12:43)
[2021-10-12] MEDS ORDERED: Lidocaine/EPI 1:100k 1% 30 ML VIAL INFILT ONE (13:15)
[2021-10-12] MEDS: Piperacillin/Tazobactam 3.375 GM in 0.9 % Sodium Chloride Mini Bag 100 ML IVPB SCH ×2 (13:56→15:33)
[2021-10-12] MEDS ORDERED: Vancomycin 1,250 MG/262.5 ML IV.SOLN IVPB SCH ×2 (15:00→15:45)
[2021-10-12 18:19] VITALS: BP 121/67; PULSE 62; TEMP 97.8; O2SAT 98
[2021-10-12] MEDS ORDERED: Chlorhexidine Rinse 15 ML MOUTHWASH MM SCH (21:00)
[2021-10-12] MEDS ORDERED: Lactobacillus 1 EACH CAP.SPRINK PO SCH (21:00)
[2021-10-13] MEDS ORDERED: *HR* Enoxaparin 40 MG/0.4 ML SYRINGE SQ SCH (06:00)
== END 2021-10-12 18:45 | disposition left against medical advice (07) | DRG 720 ==
LOC: SUATTDRO → 3BNU 01:40 → EMEROOARM 01:40 → 3BNU 12:06
PROVIDERS: ADMIT Internal Medicine; ATTEND Internal Medicine